=== PATIENT | female | born 1940 | race Caucasian/White ===

== ENCOUNTER → 2016-11-08 | Outpatient (CLI) | payer MEDICARE, OTHER ==
[~2016-11-08] MED LIST: AMIO200T33 PO; AMIO400T3 PO; CALC-6 OR; DIG0125T PO; METO50TA7 PO
[2016-11-08 12:41] LABS: INR 1.2 (0.7-1.3); Prothrombin Time 14.5 sec (9.0-12.0)
== END | disposition home or self-care (01) ==
LOC: LAB 12:22
PROVIDERS: ATTEND Internal Medicine Cardiovascular Disease
DX: R79.1 Abnormal coagulation profile (principal)
CPT/HCPCS: 85610

== ENCOUNTER → 2016-11-16 | Outpatient (CLI) | payer MEDICARE, OTHER ==
[2016-11-16 13:01] LABS: INR 1.2 (0.7-1.3); Prothrombin Time 14.3 sec (9.0-12.0)
== END | disposition home or self-care (01) ==
LOC: LAB 12:48
PROVIDERS: ATTEND Internal Medicine Cardiovascular Disease
DX: R79.1 Abnormal coagulation profile (principal)
CPT/HCPCS: 85610

== ENCOUNTER → 2017-02-11 | Outpatient (CLI) | payer MEDICARE, OTHER | END | disposition home or self-care (01) | LOC: Rad HDHVI 15:44 | PROVIDERS: ATTEND Internal Medicine Cardiovascular Disease | DX: I70.0 Atherosclerosis of aorta (principal); Z95.0 Presence of cardiac pacemaker | CPT/HCPCS: 71020 ==

== ENCOUNTER 2017-02-15 11:54 | Inpatient (IN) | payer MEDICARE, OTHER ==
[~2017-02-15] VITALS: Ht 165.1 cm; Wt 66.6 kg
[2017-02-15] MEDS ORDERED: ALPR (12:51)
[2017-02-15] MEDS ORDERED: GUAI1SOL7 (12:51)
[2017-02-15] MEDS ORDERED: WARF3TAB22 PO (12:51)
[2017-02-15] MEDS ORDERED: MET50T (12:51)
[2017-02-15] MEDS ORDERED: ISOS30TA4 (12:52)
[2017-02-15] MEDS ORDERED: HYDR-4072 (12:52)
[2017-02-15] MEDS ORDERED: AMI200T (12:52)
[2017-02-15] MEDS ORDERED: MAGN400T23 (12:52)
[2017-02-15] MEDS ORDERED: PRAV20TA3 (12:52)
[2017-02-15 12:54] LABS: Basophils # (auto) 0 uL; Eosinophils # (auto) 0 uL; Hematocrit 40.3 % (36.0-46.0); Hemoglobin 13.3 g/dL (12.2-16.2); Lymphocytes # (auto) 0.7 uL; Lymphocytes % (auto) 9.1 % (10.0-50.0); Mean Corpuscular Hemoglobin 28.7 pg (28.0-32.0); Mean Corpuscular Hgb Conc. 32.9 g/dL (32.0-36.0); Mean Corpuscular Volume 87.3 fL (80.0-100.0); Mean Platelet Volume 7.9 fL (7.4-10.4); Monocytes # (auto) 0.3 uL; Monocytes % (auto) 4.5 % (0.0-12.0); Neutrophils # (auto) 6.2 uL; Neutrophils % (auto) 86.4 % (37.0-80.0); Platelet Count (auto) 259 10^3/uL (140-450); Red Cell Distribution Width 16.4 % (11.6-16.0); White Blood Cell 7.2 10^3/uL (4.4-10.8)
[2017-02-15 13:14] LABS: Albumin 3.4 g/dL (3.4-5.0); BUN/Creatinine Ratio 18.5; Calcium 8.7 mg/dL (8.5-10.1); Magnesium 2.4 mg/dL (1.6-2.6); Potassium 4.6 mmol/L (3.5-5.1)
[2017-02-15] MEDS ORDERED: methylPREDNISolone SOD SUCC 125 MG/2 ML VL IV ONE (13:15)
[2017-02-15] MEDS ORDERED: LEVOFLOXACIN 500MG 100 ML IV ONE (13:15)
[2017-02-15] MEDS ORDERED: ALBUTEROL SULF 2.5 MG/0.5ML(0.5%) NEB SOLN NEB ONE (13:15)
[2017-02-15] MEDS ORDERED: IPRATROPIUM BROM 0.5 MG/2.5ML INH SOL NEB ONE (13:15)
[2017-02-15 13:16] LABS: Bilirubin, Total 0.6 mg/dL (0.2-1.0); Total Protein 7.7 g/dL (6.4-8.2)
[2017-02-15 13:31] LABS: Prothrombin Time 44.5 sec (9.37-12.3)
[2017-02-15 13:33] LABS: INR 4.12 (0.9-1.15)
[2017-02-15] MEDS ORDERED: ALBUTEROL SULF 2.5 MG/0.5ML(0.5%) NEB SOLN NEB PRN (15:00)
[2017-02-15] MEDS ORDERED: ACETAMINOPHEN 500 MG TAB PO PRN (15:00)
[2017-02-15] MEDS ORDERED: NITROGLYCERIN 0.4 MG SL TAB SL PRN (15:00)
[2017-02-15] MEDS ORDERED: HYDROcodone-ACET 5/325MG TAB PO PRN (15:00)
[2017-02-15] MEDS ORDERED: LACTULOSE 20Gm/30ML SOLN PO PRN (15:00)
[2017-02-15] MEDS ORDERED: PROCHLORPERAZINE EDISYLATE 5 MG/ML 2ML VIAL IV PRN (15:00)
[2017-02-15] MEDS ORDERED: MORPHINE SULF INJ 2 MG/ML SYRINGE 1ML IV PRN ×2 (15:00)
[2017-02-15] MEDS ORDERED: LORazepam 0.5 MG TAB PO PRN (15:00)
[2017-02-15] MEDS ORDERED: TEMAZEPAM 15 MG CAP PO PRN (15:00)
[2017-02-15] MEDS ORDERED: AMIODARONE HCL 200 MG TAB PO ONE (15:30)
[2017-02-15] MEDS ORDERED: METOPROLOL SUCCINATE XL 50 MG TAB PO ONE (15:30)
[2017-02-15] MEDS ORDERED: PRAVASTATIN SODIUM 20 MG TAB PO ONE (15:30)
[2017-02-15] MEDS ORDERED: ISOSORBIDE MONONITRATE 60 MG TAB PO ONE (15:30)
[2017-02-15] MEDS ORDERED: DIGOXIN 0.125 MG TAB PO ONE (15:30)
[2017-02-15 16:06] LABS: Temperature: 22.4 C (20.0-25.0)
[2017-02-15 16:21] VITALS: BP 116/69
[2017-02-15] MEDS: methylPREDNISolone SOD SUCC 40 MG/ML VL IV SCH (18:16)
[2017-02-15] MEDS: SODIUM CHLORIDE 0.9% 1,000 ML IV SCH (18:17)
[2017-02-15] MEDS: ALBUTEROL SULF 2.5 MG/0.5ML(0.5%) NEB SOLN NEB SCH (18:45)
[2017-02-15] MEDS: IPRATROPIUM BROM 0.5 MG/2.5ML INH SOL NEB SCH (18:45)
[2017-02-15 20:51] LABS: Urine Bilirubin Negative (Negative); Urine Blood Negative /uL (Negative); Urine Color Yellow (Yellow); Urine Glucose Normal (Normal); Urine Ketone Negative (Negative); Urine Nitrite Negative (Negative); Urine RBC 1 /hpf (0 - 4); Urine Squamous Epithelial Cell FEW /hpf (<5); Urine Urobilinogen Normal (Negative); Urine pH 5.5 (5.0-8.0)
[2017-02-15] MEDS: MAGNESIUM OXIDE 400 MG TAB PO SCH (21:26)
[2017-02-15 22:00] VITALS: BP 131/84
[2017-02-16] VITALS (7 sets, daily range): BP systolic 127–154; BP diastolic 71–92
[2017-02-16] MEDS: ALBUTEROL SULF 2.5 MG/0.5ML(0.5%) NEB SOLN NEB SCH ×4 (00:04→19:39)
[2017-02-16] MEDS: IPRATROPIUM BROM 0.5 MG/2.5ML INH SOL NEB SCH ×4 (00:05→19:39)
[2017-02-16] MEDS: methylPREDNISolone SOD SUCC 40 MG/ML VL IV SCH ×5 (00:12→23:51)
[2017-02-16] MEDS: SODIUM CHLORIDE 0.9% 1,000 ML IV SCH ×2 (04:10→17:15)
[2017-02-16 06:09] LABS: Basophils # (auto) 0 uL; Eosinophils # (auto) 0 uL; Hematocrit 36.4 % (36.0-46.0); Lymphocytes # (auto) 0.4 uL; Lymphocytes % (auto) 7.3 % (10.0-50.0); Mean Corpuscular Hemoglobin 28.6 pg (28.0-32.0); Mean Corpuscular Volume 86.8 fL (80.0-100.0); Mean Platelet Volume 7.8 fL (7.4-10.4); Monocytes # (auto) 0.1 uL; Monocytes % (auto) 1.3 % (0.0-12.0); Neutrophils # (auto) 4.8 uL; Neutrophils % (auto) 91.4 % (37.0-80.0); Platelet Count (auto) 217 10^3/uL (140-450); Red Cell Distribution Width 16.5 % (11.6-16.0); White Blood Cell 5.3 10^3/uL (4.4-10.8)
[2017-02-16 06:23] LABS: INR 3.49 (0.9-1.15); Partial Thromboplastin Time 34.8 sec (22.64-33.71); Prothrombin Time 37.7 sec (9.37-12.3)
[2017-02-16 06:56] LABS: BUN/Creatinine Ratio 24.4; Bilirubin, Total 0.7 mg/dL (0.2-1.0); Calcium 8.4 mg/dL (8.5-10.1); Potassium 4.2 mmol/L (3.5-5.1); Total Protein 6.7 g/dL (6.4-8.2)
[2017-02-16] MEDS ORDERED: AMIODARONE HCL 400 MG PO SCH (10:00)
[2017-02-16] MEDS ORDERED: ISOSORBIDE MONONITRATE 60 MG TAB PO SCH (10:00)
[2017-02-16] MEDS ORDERED: DIGOXIN 0.125 MG TAB PO SCH (10:00)
[2017-02-16] MEDS: LEVOFLOXACIN 500MG 100 ML IV SCH (10:02)
[2017-02-16] MEDS: MAGNESIUM OXIDE 400 MG TAB PO SCH ×2 (10:07→21:51)
[2017-02-16] MEDS: PRAVASTATIN SODIUM 20 MG TAB PO SCH (10:07)
[2017-02-16] MEDS: AMIODARONE HCL 200 MG TAB PO SCH (10:09)
[2017-02-16] MEDS: METOPROLOL SUCCINATE XL 50 MG TAB PO SCH (10:11)
[2017-02-17] VITALS (7 sets, daily range): BP systolic 135–156; BP diastolic 78–90
[2017-02-17] MEDS: IPRATROPIUM BROM 0.5 MG/2.5ML INH SOL NEB SCH ×4 (00:37→19:17)
[2017-02-17] MEDS: ALBUTEROL SULF 2.5 MG/0.5ML(0.5%) NEB SOLN NEB SCH ×4 (00:37→19:17)
[2017-02-17] MEDS: methylPREDNISolone SOD SUCC 40 MG/ML VL IV SCH ×3 (06:10→17:43)
[2017-02-17] MEDS: SODIUM CHLORIDE 0.9% 1,000 ML IV SCH (07:16)
[2017-02-17 09:36] LABS: Partial Thromboplastin Time 34.3 sec (22.64-33.71)
[2017-02-17 09:38] LABS: INR 3.81 (0.9-1.15); Prothrombin Time 41.2 sec (9.37-12.3)
[2017-02-17] MEDS: LEVOFLOXACIN 500MG 100 ML IV SCH (10:25)
[2017-02-17] MEDS: MAGNESIUM OXIDE 400 MG TAB PO SCH ×2 (10:26→21:48)
[2017-02-17] MEDS: AMIODARONE HCL 200 MG TAB PO SCH (10:26)
[2017-02-17] MEDS: PRAVASTATIN SODIUM 20 MG TAB PO SCH (10:26)
[2017-02-17] MEDS: METOPROLOL SUCCINATE XL 50 MG TAB PO SCH (10:29)
[2017-02-18] MEDS: methylPREDNISolone SOD SUCC 40 MG/ML VL IV SCH ×4 (00:10→17:43)
[2017-02-18] MEDS: IPRATROPIUM BROM 0.5 MG/2.5ML INH SOL NEB SCH ×4 (01:09→19:06)
[2017-02-18] MEDS: ALBUTEROL SULF 2.5 MG/0.5ML(0.5%) NEB SOLN NEB SCH ×4 (01:09→19:06)
[2017-02-18 05:12] VITALS: BP 155/98
[2017-02-18 06:41] LABS: INR 2.95 (0.9-1.15); Partial Thromboplastin Time 33.4 sec (22.64-33.71); Prothrombin Time 31.9 sec (9.37-12.3)
[2017-02-18 06:59] LABS: Albumin 3.1 g/dL (3.4-5.0); BUN/Creatinine Ratio 27.2; Potassium 3.6 mmol/L (3.5-5.1); Total Protein 6.8 g/dL (6.4-8.2)
[2017-02-18 08:53] VITALS: BP 155/104
[2017-02-18] MEDS: METOPROLOL SUCCINATE XL 50 MG TAB PO SCH (10:20)
[2017-02-18] MEDS: PRAVASTATIN SODIUM 20 MG TAB PO SCH (10:20)
[2017-02-18] MEDS: LEVOFLOXACIN 500MG 100 ML IV SCH (10:21)
[2017-02-18] MEDS: MAGNESIUM OXIDE 400 MG TAB PO SCH ×2 (10:21→22:43)
[2017-02-18] MEDS: AMIODARONE HCL 200 MG TAB PO SCH (10:21)
[2017-02-18] MEDS: SODIUM CHLORIDE 0.9% 1,000 ML IV SCH ×3 (10:22→22:50)
[2017-02-18 14:29] VITALS: BP 155/104
[2017-02-18 16:54] VITALS: BP 139/80
[2017-02-19] MEDS: ALBUTEROL SULF 2.5 MG/0.5ML(0.5%) NEB SOLN NEB SCH ×3 (00:07→12:08)
[2017-02-19] MEDS: IPRATROPIUM BROM 0.5 MG/2.5ML INH SOL NEB SCH ×3 (00:07→12:08)
[2017-02-19] MEDS: methylPREDNISolone SOD SUCC 40 MG/ML VL IV SCH ×3 (00:53→11:40)
[2017-02-19 05:00] VITALS: BP 151/84
[2017-02-19 06:50] LABS: Partial Thromboplastin Time 31.4 sec (22.64-33.71)
[2017-02-19 06:51] LABS: Basophils # (auto) 0 uL; Eosinophils # (auto) 0 uL; Hemoglobin 12.8 g/dL (12.2-16.2); Lymphocytes # (auto) 0.3 uL; Lymphocytes % (auto) 3.4 % (10.0-50.0); Mean Corpuscular Hemoglobin 28.6 pg (28.0-32.0); Mean Corpuscular Hgb Conc. 32.7 g/dL (32.0-36.0); Mean Corpuscular Volume 87.4 fL (80.0-100.0); Mean Platelet Volume 7.8 fL (7.4-10.4); Monocytes # (auto) 0.2 uL; Monocytes % (auto) 2.8 % (0.0-12.0); Neutrophils % (auto) 93.8 % (37.0-80.0); Platelet Count (auto) 271 10^3/uL (140-450); Red Cell Distribution Width 16.4 % (11.6-16.0); White Blood Cell 7.5 10^3/uL (4.4-10.8)
[2017-02-19 07:04] LABS: INR 2.39 (0.9-1.15); Prothrombin Time 25.8 sec (9.37-12.3)
[2017-02-19 09:00] VITALS: BP 144/78
[2017-02-19] MEDS: LEVOFLOXACIN 500MG 100 ML IV SCH (10:21)
[2017-02-19] MEDS: AMIODARONE HCL 200 MG TAB PO SCH (10:22)
[2017-02-19] MEDS: METOPROLOL SUCCINATE XL 50 MG TAB PO SCH (10:22)
[2017-02-19] MEDS: PRAVASTATIN SODIUM 20 MG TAB PO SCH (10:22)
[2017-02-19] MEDS: MAGNESIUM OXIDE 400 MG TAB PO SCH (10:23)
[2017-02-19] MEDS: SODIUM CHLORIDE 0.9% 1,000 ML IV SCH (12:59)
[2017-02-19 13:00] VITALS: BP 110/70
[2017-02-19 15:39] VITALS: BP 110/70
[2017-02-19] MEDS ORDERED: WARFARIN SODIUM 2 MG TAB PO ONE (17:00)
== END 2017-02-19 16:53 | disposition home health service (06) | DRG 871 ==
LOC: ER 12:06 → TELE 12:07 → TELE-WESTW 17:39
PROVIDERS: ADMIT Internal Medicine; ATTEND Internal Medicine Cardiovascular Disease
DX: A41.9 Sepsis, unspecified organism (principal); J18.9 Pneumonia, unspecified organism; J44.1 Chronic obstructive pulmonary disease with (acute) exacerbation; S00.03XA Contusion of scalp, initial encounter; I11.9 Hypertensive heart disease without heart failure; I48.91 Unspecified atrial fibrillation; I67.2 Cerebral atherosclerosis; J34.2 Deviated nasal septum; M48.02 Spinal stenosis, cervical region; W19.XXXA Unspecified fall, initial encounter; Y93.89 Activity, other specified; Y92.89 Other specified places as the place of occurrence of the external cause; Z95.0 Presence of cardiac pacemaker; Z86.73 Personal history of transient ischemic attack (TIA), and cerebral infarction without residual deficits; Z90.49 Acquired absence of other specified parts of digestive tract; Z90.710 Acquired absence of both cervix and uterus; Z88.0 Allergy status to penicillin; Z79.01 Long term (current) use of anticoagulants; Z79.899 Other long term (current) drug therapy
CPT/HCPCS: 36415; 70450; 70486; 71010; 71250; 72125; 80053; 81001; 82550; 82607; 82746; 83735; 84443; 84484; 85025; 85610; 85652; 85730; 86141; 87040; 93005; 93306; 93886; 94640; 96365; 96375; J1956

== ENCOUNTER → 2017-02-25 | Outpatient (CLI) | payer MEDICARE, OTHER ==
[~2017-02-25] MED LIST changes: +ALPR; +GUAI1SOL7; +HYDR-4072; +ISOS30TA4; +MAGN400T23; +MET50T; +PRAV20TA3; +WARF3TAB22 PO
[2017-02-25 16:30] LABS: Basophils # (auto) 0 uL; Eosinophils # (auto) 0.1 uL; Eosinophils % (auto) 1.2 % (0.0-7.0); Hematocrit 43.3 % (36.0-46.0); Lymphocytes # (auto) 0.5 uL; Lymphocytes % (auto) 8.9 % (10.0-50.0); Mean Corpuscular Hemoglobin 28.7 pg (28.0-32.0); Mean Corpuscular Hgb Conc. 32.4 g/dL (32.0-36.0); Mean Corpuscular Volume 88.7 fL (80.0-100.0); Mean Platelet Volume 8.4 fL (7.4-10.4); Monocytes # (auto) 0.6 uL; Monocytes % (auto) 9.5 % (0.0-12.0); Neutrophils # (auto) 4.7 uL; Neutrophils % (auto) 80.4 % (37.0-80.0); Platelet Count (auto) 277 10^3/uL (140-450); Red Cell Distribution Width 17.1 % (11.6-16.0); White Blood Cell 5.9 10^3/uL (4.4-10.8)
[2017-02-25 16:53] LABS: Partial Thromboplastin Time 29.9 sec (22.64-33.71)
[2017-02-25 16:54] LABS: BUN/Creatinine Ratio 22.8; Calcium 8.9 mg/dL (8.5-10.1); Potassium 4.5 mmol/L (3.5-5.1)
[2017-02-25 17:00] LABS: INR 1.73 (0.9-1.15); Prothrombin Time 18.7 sec (9.37-12.3)
== END | disposition home or self-care (01) ==
LOC: LAB 11:39
PROVIDERS: ATTEND Internal Medicine Cardiovascular Disease
DX: I10 Essential (primary) hypertension (principal); D64.9 Anemia, unspecified; R79.1 Abnormal coagulation profile
CPT/HCPCS: 36415; 80048; 85025; 85610; 85730

== ENCOUNTER → 2017-12-17 | Outpatient (CLI) | payer MEDICARE, OTHER ==
[~2017-12-17] MED LIST changes: +GUAI1SOL; -GUAI1SOL7
[2017-12-17 12:17] LABS: Basophils # (auto) 0 uL; Basophils % (auto) 0.5 % (0.0-2.0); Eosinophils # (auto) 0 uL; Eosinophils % (auto) 0.5 % (0.0-7.0); Hematocrit 37.2 % (36.0-46.0); Hemoglobin 12.5 g/dL (12.2-16.2); Lymphocytes % (auto) 14.7 % (10.0-50.0); Mean Corpuscular Hemoglobin 30.6 pg (28.0-32.0); Mean Corpuscular Hgb Conc. 33.5 g/dL (32.0-36.0); Mean Corpuscular Volume 91.6 fL (80.0-100.0); Monocytes # (auto) 0.5 uL; Neutrophils # (auto) 5.2 uL; Neutrophils % (auto) 77.3 % (37.0-80.0); Nucleated Red Blood Cells % 0.3 %; Platelet Count (auto) 201 10^3/uL (140-450); Red Blood Cells 4.07 10^6/uL (4.0-5.20); Red Cell Distribution Width 15.4 % (11.8-14.3); White Blood Cell 6.7 10^3/uL (4.4-10.8)
[2017-12-17 12:23] LABS: Urine Blood 2+ /uL (Negative); Urine Specific Gravity 1.016 (1.001-1.035)
[2017-12-17 14:17] LABS: Albumin 3.8 g/dL (3.4-5.0); BUN/Creatinine Ratio 15.3; Bilirubin, Direct 0.4 mg/dL (0-0.2); Calcium 8.6 mg/dL (8.5-10.1); Potassium 4.2 mmol/L (3.5-5.1); Total Protein 7.4 g/dL (6.4-8.2)
== END | disposition home or self-care (01) ==
LOC: LAB 09:54
PROVIDERS: ATTEND Internal Medicine Cardiovascular Disease
DX: E78.00 Pure hypercholesterolemia, unspecified (principal); D64.9 Anemia, unspecified; I10 Essential (primary) hypertension; E11.9 Type 2 diabetes mellitus without complications; E03.9 Hypothyroidism, unspecified; E55.9 Vitamin D deficiency, unspecified; K74.1 Hepatic sclerosis; N39.0 Urinary tract infection, site not specified
CPT/HCPCS: 36415; 80048; 80061; 80076; 81003; 82306; 83036; 84443; 85025; 87086; 87088; 87186

== ENCOUNTER → 2018-01-01 | Outpatient (CLI) | payer MEDICARE, OTHER | END | disposition home or self-care (01) | LOC: Rad HDHVI 08:57 | PROVIDERS: ATTEND Internal Medicine Cardiovascular Disease | DX: I08.1 Rheumatic disorders of both mitral and tricuspid valves (principal); I48.91 Unspecified atrial fibrillation; Z95.0 Presence of cardiac pacemaker | CPT/HCPCS: 93306 ==

== ENCOUNTER → 2018-02-17 | Outpatient (CLI) | payer MEDICARE, OTHER ==
[~2018-02-17] MED LIST changes: +IOHEXOL 350 MG/ML 100ML IJ ONE; +READI-CAT 2 (BARIUM SULF)(VANILLA SMOOTHIE) 450ML ONE
[2018-02-17 09:40] VITALS: BP 115/65
[2018-02-17 10:25] VITALS: BP 114/53
[2018-02-17 12:12] LABS: Urine Blood Negative /uL (Negative)
[2018-02-17 12:25] LABS: BUN/Creatinine Ratio 27.5; Basophils # (auto) 0 uL; Basophils % (auto) 0.5 % (0.0-2.0); Calcium 9.3 mg/dL (8.5-10.1); Eosinophils # (auto) 0.1 uL; Hematocrit 39.7 % (36.0-46.0); Lymphocytes # (auto) 0.8 uL; Lymphocytes % (auto) 16.9 % (10.0-50.0); Mean Corpuscular Hemoglobin 29.6 pg (28.0-32.0); Mean Corpuscular Hgb Conc. 32.9 g/dL (32.0-36.0); Monocytes # (auto) 0.5 uL; Monocytes % (auto) 9.8 % (0.0-12.0); Neutrophils # (auto) 3.3 uL; Neutrophils % (auto) 70.8 % (37.0-80.0); Nucleated Red Blood Cells % 0.7 %; Platelet Count (auto) 228 10^3/uL (140-450); Potassium 4.3 mmol/L (3.5-5.1); Red Blood Cells 4.41 10^6/uL (4.0-5.20); Red Cell Distribution Width 14.5 % (11.8-14.3); White Blood Cell 4.7 10^3/uL (4.4-10.8)
[2018-02-17 12:34] LABS: INR 1.22 (0.9-1.15); Partial Thromboplastin Time 31.5 sec (22.64-33.71); Prothrombin Time 13.3 sec (9.37-12.3)
== END | disposition home or self-care (01) ==
LOC: Rad HDHVI 09:20
PROVIDERS: ATTEND Internal Medicine Cardiovascular Disease
DX: K57.30 Diverticulosis of large intestine without perforation or abscess without bleeding (principal); K76.89 Other specified diseases of liver; I70.0 Atherosclerosis of aorta; D64.9 Anemia, unspecified; I10 Essential (primary) hypertension; R79.1 Abnormal coagulation profile; N39.0 Urinary tract infection, site not specified; E11.9 Type 2 diabetes mellitus without complications; E78.00 Pure hypercholesterolemia, unspecified; Z95.0 Presence of cardiac pacemaker
CPT/HCPCS: 36415; 74177; 80048; 81003; 82565; 85025; 85610; 85730; 87086; G0463; Q9967

== ENCOUNTER → 2018-03-14 | Outpatient (CLI) | payer MEDICARE, OTHER ==
[~2018-03-14] MED LIST changes: -IOHEXOL 350 MG/ML 100ML IJ ONE; -READI-CAT 2 (BARIUM SULF)(VANILLA SMOOTHIE) 450ML ONE
== END | disposition home or self-care (01) ==
LOC: Rad HDHVI 12:14
PROVIDERS: ATTEND Internal Medicine Cardiovascular Disease
DX: I63.9 Cerebral infarction, unspecified (principal); I67.2 Cerebral atherosclerosis; I10 Essential (primary) hypertension; E11.9 Type 2 diabetes mellitus without complications; E78.00 Pure hypercholesterolemia, unspecified; Z91.81 History of falling; Z95.0 Presence of cardiac pacemaker
CPT/HCPCS: 70450

== ENCOUNTER → 2018-09-24 | Outpatient (CLI) | payer MEDICARE, BC ==
[~2018-09-24] MED LIST changes: -ALPR; +ALPR0.255 PO; -AMIO400T3 PO; -CALC-6 OR; +CARB25TA22 PO; -DIG0125T PO; -GUAI1SOL; -HYDR-4072; +HYDR-4072 PO; -MET50T; +MET50T PO; -METO50TA7 PO; +MULT-195 OR; +WARF4TAB33 PO
== END | disposition home or self-care (01) ==
LOC: Rad HDHVI 15:20
PROVIDERS: ATTEND Internal Medicine Cardiovascular Disease
DX: J98.11 Atelectasis (principal); J90 Pleural effusion, not elsewhere classified; I70.0 Atherosclerosis of aorta
CPT/HCPCS: 71046

== ENCOUNTER → 2018-11-05 | Outpatient (CLI) | payer MEDICARE, BC | END | disposition home or self-care (01) | LOC: Rad HDHVI 12:45 | PROVIDERS: ATTEND Internal Medicine Cardiovascular Disease | DX: I08.1 Rheumatic disorders of both mitral and tricuspid valves (principal); I27.0 Primary pulmonary hypertension; I95.9 Hypotension, unspecified | CPT/HCPCS: 93306 ==

== ENCOUNTER → 2019-02-11 | Outpatient (CLI) | payer MEDICARE, BC ==
[~2019-02-11] MED LIST changes: +IOHEXOL 350 MG/ML 100ML IJ ONE
[2019-02-11 16:11] LABS: Urine Blood Negative /uL (Negative); Urine Specific Gravity 1.013 (1.001-1.035)
[2019-02-11 16:32] LABS: Potassium 4.4 mmol/L (3.5-5.1)
[2019-02-11 16:35] LABS: Basophils # (auto) 0 uL; Basophils % (auto) 0.6 % (0.0-2.0); Eosinophils # (auto) 0.1 uL; Eosinophils % (auto) 1.3 % (0.0-7.0); Hematocrit 41.7 % (36.0-46.0); Hemoglobin 13.7 g/dL (12.2-16.2); Lymphocytes # (auto) 1.2 uL; Lymphocytes % (auto) 25.3 % (10.0-50.0); Mean Corpuscular Hemoglobin 30.5 pg (28.0-32.0); Mean Corpuscular Hgb Conc. 32.8 g/dL (32.0-36.0); Mean Corpuscular Volume 93.1 fL (80.0-100.0); Monocytes # (auto) 0.3 uL; Monocytes % (auto) 7.3 % (0.0-12.0); Neutrophils % (auto) 65.5 % (37.0-80.0); Nucleated Red Blood Cells % 0.1 %; Platelet Count (auto) 184 10^3/uL (140-450); Red Blood Cells 4.48 10^6/uL (4.0-5.20); Red Cell Distribution Width 15.3 % (11.8-14.3); White Blood Cell 4.6 10^3/uL (4.4-10.8)
[2019-02-11 16:38] LABS: Albumin 4.2 g/dL (3.4-5.0); BUN/Creatinine Ratio 15.4; Bilirubin, Direct 0.3 mg/dL (0-0.2); Bilirubin, Total 0.8 mg/dL (0.2-1.0); Calcium 8.9 mg/dL (8.5-10.1); Total Protein 7.3 g/dL (6.4-8.2)
[2019-02-11 19:59] LABS: Free T4 (Free Thyroxine) 1.28 ng/dL (0.89-1.76)
== END | disposition home or self-care (01) ==
LOC: Rad HDHVI 15:04
PROVIDERS: ATTEND Internal Medicine Cardiovascular Disease
DX: N39.0 Urinary tract infection, site not specified (principal); E03.9 Hypothyroidism, unspecified; E55.9 Vitamin D deficiency, unspecified; D51.9 Vitamin B12 deficiency anemia, unspecified; Z79.899 Other long term (current) drug therapy
CPT/HCPCS: 36415; 80048; 80061; 80076; 81003; 82306; 82607; 83036; 84439; 84443; 85025; 87086; Q9967

== ENCOUNTER → 2019-02-13 | Outpatient (CLI) | payer MEDICARE, BC ==
[2019-02-13 09:49] VITALS: BP 116/68
--- NOTE | 2019-02-13 09:49 | NUR ---
IV insertion IV access obtained by Susana CRUZ, via clean sterile technique by inserting 22 gauge catheter at [facility] after 1 attempt(s). IV secured properly. No trauma to site. Patient tolerated procedure well.
--- NOTE | 2019-02-13 10:19 | NUR ---
IV removal IV DC'd with sterile technique, catheter fully intact. Pressure dressing applied to site. Patient tolerated procedure well.
[2019-02-13 10:20] VITALS: BP 128/72
--- NOTE | 2019-02-13 10:20 | NUR ---
[facility] Discharge Instructions See e-MAR for any mediations given with this visit. Patient education given on disease process. Patient verbalized understanding. Previous labs reviewed. Patient discharged in stable condition with after care instructions and follow up appointment. NOTE PATIENT EDUCATED TO DRINK PLENTY OF FLUIDS OVER THE NEXT 24 HRS, PATIENT VERBALIZED UNDERSTANDING.
== END | disposition home or self-care (01) ==
LOC: Rad HDHVI 09:44
PROVIDERS: ATTEND Internal Medicine Cardiovascular Disease
DX: K92.2 Gastrointestinal hemorrhage, unspecified (principal); I70.0 Atherosclerosis of aorta; G31.9 Degenerative disease of nervous system, unspecified; Z90.710 Acquired absence of both cervix and uterus
CPT/HCPCS: 74177; G0463; Q9967

== ENCOUNTER → 2019-04-01 | Outpatient (CLI) | payer MEDICARE, BC ==
[~2019-04-01] MED LIST changes: -IOHEXOL 350 MG/ML 100ML IJ ONE
== END | disposition home or self-care (01) ==
LOC: Rad HDHVI 13:48
PROVIDERS: ATTEND Internal Medicine Cardiovascular Disease
DX: M16.11 Unilateral primary osteoarthritis, right hip (principal); M25.78 Osteophyte, vertebrae
CPT/HCPCS: 73700

== ENCOUNTER → 2020-08-03 | Outpatient (CLI) | payer MEDICARE, BC ==
[2020-08-03 11:46] LABS: Urine Blood Negative /uL (Negative)
[2020-08-03 11:55] LABS: Basophils # (auto) 0 10 ^3/uL (0-0.2); Basophils % (auto) 0.3 % (0.0-2.0); Eosinophils # (auto) 0.1 10 ^3/uL (0-0.8); Eosinophils % (auto) 1.3 % (0.0-7.0); Hematocrit 41.2 % (36.0-46.0); Hemoglobin 13.2 g/dL (12.2-16.2); Lymphocytes # (auto) 1.1 10 ^3/uL (0.4-5.4); Lymphocytes % (auto) 21.8 % (10.0-50.0); Mean Corpuscular Hemoglobin 29.6 pg (28.0-32.0); Mean Corpuscular Volume 92.4 fL (80.0-100.0); Monocytes # (auto) 0.4 10 ^3/uL (0-1.3); Monocytes % (auto) 7.4 % (0.0-12.0); Neutrophils # (auto) 3.5 10 ^3/uL (1.6-8.6); Neutrophils % (auto) 69.2 % (37.0-80.0); Nucleated Red Blood Cells % 0.1 %; Platelet Count (auto) 235 10^3/uL (140-450); Red Blood Cells 4.46 10^6/uL (4.0-5.20); Red Cell Distribution Width 14.6 % (11.8-14.3); White Blood Cell 5.1 10^3/uL (4.4-10.8)
[2020-08-03 12:22] LABS: Albumin 3.6 g/dL (3.4-5.0); Potassium 4.2 mmol/L (3.5-5.1)
[2020-08-03 12:32] LABS: Total Protein 7.4 g/dL (6.4-8.2)
[2020-08-03 13:09] LABS: BUN/Creatinine Ratio 15.5; Bilirubin, Direct 0.2 mg/dL (0-0.2); Bilirubin, Total 0.7 mg/dL (0.2-1.0); Calcium 9.2 mg/dL (8.5-10.1)
== END | disposition home or self-care (01) ==
LOC: LAB 10:24
PROVIDERS: ATTEND Internal Medicine Cardiovascular Disease
DX: E11.9 Type 2 diabetes mellitus without complications (principal); D51.3 Other dietary vitamin B12 deficiency anemia; I10 Essential (primary) hypertension; E55.9 Vitamin D deficiency, unspecified; D64.9 Anemia, unspecified; R00.2 Palpitations; R53.1 Weakness; R30.0 Dysuria
CPT/HCPCS: 36415; 80048; 80061; 80076; 81003; 82306; 83036; 84443; 85025; 87086

== ENCOUNTER → 2020-08-04 | Outpatient (CLI) | payer MEDICARE, BC | END | disposition home or self-care (01) | LOC: Rad HDHVI 15:00 | PROVIDERS: ATTEND Internal Medicine Cardiovascular Disease | DX: I48.91 Unspecified atrial fibrillation (principal); I49.5 Sick sinus syndrome | CPT/HCPCS: 93306 ==

== ENCOUNTER → 2020-08-15 | Outpatient (CLI) | payer MEDICARE, BC ==
[~2020-08-15] VITALS: Ht 165.1 cm; Wt 57.6 kg
[~2020-08-15] MED LIST changes: +ADENOSINE 48 MG in GIVE UN-DILUTED 0 ML IV ONE; +ADENOSINE 90 MG/30 ML INJ IV ONE
== END | disposition home or self-care (01) ==
LOC: Rad HDHVI 08:20
PROVIDERS: ATTEND Internal Medicine Cardiovascular Disease
DX: I48.91 Unspecified atrial fibrillation (principal); E78.00 Pure hypercholesterolemia, unspecified; I10 Essential (primary) hypertension; Z95.0 Presence of cardiac pacemaker
CPT/HCPCS: 78452; 93005; 96374; 96375; A9500; J0153

== ENCOUNTER → 2021-02-15 | Outpatient (CLI) | payer MEDICARE, BC ==
[~2021-02-15] MED LIST changes: -ADENOSINE 48 MG in GIVE UN-DILUTED 0 ML IV ONE; -ADENOSINE 90 MG/30 ML INJ IV ONE; +ISOS1TAB28; -ISOS30TA4
[2021-02-15 11:49] LABS: Basophils # (auto) 0 10 ^3/uL (0-0.2); Basophils % (auto) 0.7 % (0.0-2.0); Eosinophils # (auto) 0.1 10 ^3/uL (0-0.8); Eosinophils % (auto) 2.4 % (0.0-7.0); Hematocrit 36.1 % (36.0-46.0); Hemoglobin 11.9 g/dL (12.2-16.2); Lymphocytes # (auto) 1.2 10 ^3/uL (0.4-5.4); Lymphocytes % (auto) 26.1 % (10.0-50.0); Mean Corpuscular Hemoglobin 30.6 pg (28.0-32.0); Mean Corpuscular Hgb Conc. 32.8 g/dL (32.0-36.0); Mean Corpuscular Volume 93.3 fL (80.0-100.0); Monocytes # (auto) 0.4 10 ^3/uL (0-1.3); Monocytes % (auto) 8.2 % (0.0-12.0); Neutrophils # (auto) 2.8 10 ^3/uL (1.6-8.6); Neutrophils % (auto) 62.6 % (37.0-80.0); Nucleated Red Blood Cells % 0.1 %; Platelet Count (auto) 184 10^3/uL (140-450); Red Blood Cells 3.87 10^6/uL (4.0-5.20); Red Cell Distribution Width 16.1 % (11.8-14.3); White Blood Cell 4.5 10^3/uL (4.4-10.8)
[2021-02-15 12:01] LABS: Albumin 3.4 g/dL (3.4-5.0); Calcium 8.9 mg/dL (8.5-10.1)
[2021-02-15 12:12] LABS: BUN/Creatinine Ratio 20.5; Bilirubin, Total 1.1 mg/dL (0.2-1.0); Total Protein 6.6 g/dL (6.4-8.2)
[2021-02-15 12:14] LABS: Free T4 (Free Thyroxine) 1.33 ng/dL (0.89-1.76)
[2021-02-15 15:41] LABS: Urine Blood Negative /uL (Negative); Urine Specific Gravity 1.023 (1.001-1.035)
== END | disposition home or self-care (01) ==
LOC: LAB 08:22
PROVIDERS: ATTEND Internal Medicine Cardiovascular Disease
DX: D51.3 Other dietary vitamin B12 deficiency anemia (principal); I10 Essential (primary) hypertension; E11.9 Type 2 diabetes mellitus without complications; E55.9 Vitamin D deficiency, unspecified; D64.9 Anemia, unspecified; R00.2 Palpitations; R53.1 Weakness; R30.0 Dysuria
CPT/HCPCS: 36415; 80053; 80061; 81003; 82306; 82607; 83036; 84439; 84443; 85025; 87086

== ENCOUNTER → 2021-07-24 | Outpatient (CLI) | payer MEDICARE, BC ==
[~2021-07-24] VITALS: Ht 165.1 cm; Wt 54.4 kg
[~2021-07-24] MED LIST changes: +ADENOSINE 46 MG in GIVE UN-DILUTED 0 ML IV ONE; +ADENOSINE 90 MG/30 ML INJ IV ONE; -CARB25TA22 PO; +CARB25TA79 PO
== END | disposition home or self-care (01) ==
LOC: Rad HDHVI 08:24
PROVIDERS: ATTEND Internal Medicine Cardiovascular Disease
DX: I48.11 Longstanding persistent atrial fibrillation (principal); I10 Essential (primary) hypertension; R00.2 Palpitations; E78.5 Hyperlipidemia, unspecified; J44.9 Chronic obstructive pulmonary disease, unspecified; I49.5 Sick sinus syndrome; I25.2 Old myocardial infarction; Z95.0 Presence of cardiac pacemaker
CPT/HCPCS: 78452; 93005; 96374; 96375; A9500; J0153

== ENCOUNTER → 2021-08-08 | Outpatient (CLI) | payer MEDICARE, BC ==
[~2021-08-08] MED LIST changes: -ADENOSINE 46 MG in GIVE UN-DILUTED 0 ML IV ONE; -ADENOSINE 90 MG/30 ML INJ IV ONE
== END | disposition home or self-care (01) ==
LOC: Rad HDHVI 07:58
PROVIDERS: ATTEND Internal Medicine Cardiovascular Disease
DX: I10 Essential (primary) hypertension (principal); R06.02 Shortness of breath
CPT/HCPCS: 93306

== ENCOUNTER → 2021-08-16 | Outpatient (CLI) | payer MEDICARE, BC | END | disposition home or self-care (01) | LOC: Rad HDHVI 08:00 | PROVIDERS: ATTEND Internal Medicine Cardiovascular Disease | DX: I65.21 Occlusion and stenosis of right carotid artery (principal); I10 Essential (primary) hypertension; E78.5 Hyperlipidemia, unspecified | CPT/HCPCS: 93880 ==

== ENCOUNTER → 2022-02-19 | Outpatient (CLI) | payer MEDICARE, BC ==
[2022-02-19 15:25] LABS: Urine Blood Negative /uL (Negative); Urine Specific Gravity 1.013 (1.001-1.035)
[2022-02-19 15:28] LABS: Basophils # (auto) 0 10 ^3/uL (0-0.2); Basophils % (auto) 0.5 % (0.0-2.0); Eosinophils # (auto) 0.1 10 ^3/uL (0-0.8); Eosinophils % (auto) 1.9 % (0.0-7.0); Hematocrit 37.2 % (36.0-46.0); Hemoglobin 12.6 g/dL (12.2-16.2); Lymphocytes % (auto) 24.6 % (10.0-50.0); Mean Corpuscular Hemoglobin 31.1 pg (28.0-32.0); Mean Corpuscular Hgb Conc. 33.7 g/dL (32.0-36.0); Mean Corpuscular Volume 92.1 fL (80.0-100.0); Monocytes # (auto) 0.3 10 ^3/uL (0-1.3); Monocytes % (auto) 6.7 % (0.0-12.0); Neutrophils # (auto) 2.8 10 ^3/uL (1.6-8.6); Neutrophils % (auto) 66.3 % (37.0-80.0); Nucleated Red Blood Cells % 0.1 %; Red Blood Cells 4.04 10^6/uL (4.0-5.20); Red Cell Distribution Width 15.8 % (11.8-14.3); White Blood Cell 4.3 10^3/uL (4.4-10.8)
[2022-02-19 15:30] LABS: Albumin 3.6 g/dL (3.4-5.0); Calcium 9.3 mg/dL (8.5-10.1); Potassium 4.2 mmol/L (3.5-5.1)
[2022-02-19 15:35] LABS: BUN/Creatinine Ratio 22.2; Bilirubin, Total 0.8 mg/dL (0.2-1.0); Total Protein 7.4 g/dL (6.4-8.2)
[2022-02-19 15:40] LABS: Free T4 (Free Thyroxine) 2.12 ng/dL (0.89-1.76)
== END | disposition home or self-care (01) ==
LOC: LAB 12:34
PROVIDERS: ATTEND Internal Medicine Cardiovascular Disease
DX: E11.9 Type 2 diabetes mellitus without complications (principal); D51.3 Other dietary vitamin B12 deficiency anemia; D64.9 Anemia, unspecified; E55.9 Vitamin D deficiency, unspecified; I10 Essential (primary) hypertension; R00.2 Palpitations; R53.1 Weakness; R30.0 Dysuria
CPT/HCPCS: 36415; 80053; 80061; 81003; 82607; 83036; 84439; 84443; 85025; 87086

== ENCOUNTER → 2022-02-28 | Outpatient (CLI) | payer MEDICARE, BC | END | disposition home or self-care (01) | LOC: Rad HDHVI 09:03 | PROVIDERS: ATTEND Internal Medicine Cardiovascular Disease | DX: I08.8 Other rheumatic multiple valve diseases (principal); J90 Pleural effusion, not elsewhere classified; R00.2 Palpitations; E78.5 Hyperlipidemia, unspecified | CPT/HCPCS: 93306 ==

== ENCOUNTER → 2022-07-17 | Outpatient (CLI) | payer MEDICARE, BC ==
[2022-07-17 12:50] VITALS: BP 113/68
== END | disposition home or self-care (01) ==
LOC: Rad HDHVI 12:49
PROVIDERS: ATTEND Internal Medicine Cardiovascular Disease
DX: I08.8 Other rheumatic multiple valve diseases (principal); R00.2 Palpitations; S81.851A Open bite, right lower leg, initial encounter; X58.XXXA Exposure to other specified factors, initial encounter; Y93.89 Activity, other specified; Y92.89 Other specified places as the place of occurrence of the external cause; Y99.8 Other external cause status
CPT/HCPCS: 93306; G0463

== ENCOUNTER → 2022-12-04 | Outpatient (CLI) | payer MEDICARE, BC | END | disposition home or self-care (01) | LOC: Rad HDHVI 10:01 | PROVIDERS: ATTEND Internal Medicine Cardiovascular Disease | DX: I08.3 Combined rheumatic disorders of mitral, aortic and tricuspid valves (principal); I27.21 Secondary pulmonary arterial hypertension; I11.9 Hypertensive heart disease without heart failure | CPT/HCPCS: 93306 ==

== ENCOUNTER → 2023-02-13 | Outpatient (CLI) | payer MEDICARE, BC | END | disposition home or self-care (01) | LOC: Rad HDHVI 11:31 | PROVIDERS: ATTEND Internal Medicine Cardiovascular Disease | DX: J98.11 Atelectasis (principal); J90 Pleural effusion, not elsewhere classified; R06.02 Shortness of breath; R07.89 Other chest pain; Z95.0 Presence of cardiac pacemaker | CPT/HCPCS: 71046 ==

== ENCOUNTER → 2023-02-28 | Outpatient (CLI) | payer MEDICARE, BC ==
[~2023-02-28] VITALS: Ht 165.1 cm; Wt 53.1 kg
== END | disposition home or self-care (01) ==
LOC: Rad HDHVI 09:19
PROVIDERS: ATTEND Internal Medicine Cardiovascular Disease
DX: I34.0 Nonrheumatic mitral (valve) insufficiency (principal); I07.1 Rheumatic tricuspid insufficiency; I48.19 Other persistent atrial fibrillation; R42 Dizziness and giddiness; I25.2 Old myocardial infarction; I10 Essential (primary) hypertension; Z95.0 Presence of cardiac pacemaker
CPT/HCPCS: 78472; 96374; A9505; 96375

== ENCOUNTER → 2023-06-17 | Outpatient (CLI) | payer MEDICARE, BC ==
[~2023-06-17] MED LIST changes: +WARF-111 PO; +WARF-112 PO; -WARF3TAB22 PO; -WARF4TAB33 PO
== END | disposition home or self-care (01) ==
LOC: Rad HDHVI 09:34
PROVIDERS: ATTEND Internal Medicine Cardiovascular Disease
DX: I08.8 Other rheumatic multiple valve diseases (principal); I10 Essential (primary) hypertension; R00.2 Palpitations
CPT/HCPCS: 93306

== ENCOUNTER → 2023-12-02 | Outpatient (CLI) | payer MEDICARE, BC | END | disposition home or self-care (01) | LOC: Rad HDHVI 10:43 | PROVIDERS: ATTEND Internal Medicine Cardiovascular Disease | DX: I08.8 Other rheumatic multiple valve diseases (principal); I27.21 Secondary pulmonary arterial hypertension; I31.39 Other pericardial effusion (noninflammatory); I10 Essential (primary) hypertension; R06.02 Shortness of breath | CPT/HCPCS: 93306 ==

== ENCOUNTER → 2024-07-06 | Outpatient (CLI) | payer MEDICARE, BC | END | disposition home or self-care (01) | LOC: Rad HDHVI 11:28 | PROVIDERS: ATTEND Internal Medicine Cardiovascular Disease | DX: S32.512A Fracture of superior rim of left pubis, initial encounter for closed fracture (principal); S32.591A Other specified fracture of right pubis, initial encounter for closed fracture; K57.30 Diverticulosis of large intestine without perforation or abscess without bleeding; Z98.890 Other specified postprocedural states; X58.XXXA Exposure to other specified factors, initial encounter; Y93.89 Activity, other specified; Y92.89 Other specified places as the place of occurrence of the external cause; Y99.8 Other external cause status | CPT/HCPCS: 72192 ==

== ENCOUNTER → 2024-11-04 | Outpatient (CLI) | payer MEDICARE, BC ==
[2024-11-04 11:00] VITALS: BP 117/70; PULSE 79; RESP 18; O2SAT 98
[2024-11-04 11:27] VITALS: BP 98/54; PULSE 79; RESP 18; O2SAT 98
--- NOTE | 2024-11-04 11:29 | DVH ---
EXAM: CT CERVICAL WITHOUT CONTRAST INDICATION: NECK PAIN EXAM DATE: 11/04/2024 10:51 AM COMPARISON: CT R HIP WITH OUT CONTRAST on DOS: 04/01/19 TECHNIQUE: Multiple axial CT images of the cervical spine were obtained using bone algorithm. Sagitta l and coronal reformatting was done. Bone and soft tissue windows were reviewed. Radiation Dose Information: CT Dose: CTDI volume is 8.94 mGy. Dose-length product is 181.07 mGy*cm FINDINGS: The cervical alignment is intact. The curvature is maintained. No acute cervical spine fracture is id entified. The vertebral body heights are intact. No suspicious osseous lesions are identified. There are degenerative changes at C1-C2. There is intervertebral disc space narrowing at C3-C4, C4-C 5, C5-C6 and C6-C7. There is calcification of the posterior longitudinal ligament at C3-C4. There is mild canal stenosis at C3-C4. The spinal canal is otherwise patent. There is mild right foraminal st enosis at C4-C5 and mild left neural foraminal stenosis at C5-C6. There is no prevertebral soft tissue swelling. Emphysema in the lung apices. IMPRESSION: 1. No evidence of acute cervical spine fracture or traumatic malalignment. 2. Degenerative changes. This includes mild canal stenosis at C3-C4. There is mild right foraminal s tenosis at C4-C5 and mild left neural foraminal stenosis at C5-C6. 3. Emphysema in the lung apices. All CT scans at this medical facility are performed using dose modulation techniques as appropriate t o a performed exam including the following: Automated exposure control was utilized; adjustment of th e MA and/or KV according to patient size; and use of iterative reconstruction technique.
== END | disposition home or self-care (01) ==
LOC: Rad HDHVI 10:40
PROVIDERS: ATTEND Internal Medicine Cardiovascular Disease
DX: S51.812A Laceration without foreign body of left forearm, initial encounter (principal); M47.812 Spondylosis without myelopathy or radiculopathy, cervical region; M48.02 Spinal stenosis, cervical region; J43.9 Emphysema, unspecified; M54.2 Cervicalgia; X58.XXXA Exposure to other specified factors, initial encounter; Y93.89 Activity, other specified; Y92.89 Other specified places as the place of occurrence of the external cause; Y99.8 Other external cause status
CPT/HCPCS: 72125; G0463

== ENCOUNTER 2025-01-13 16:26 | Inpatient (IN) | payer OTHER, BC ==
[~2025-01-13] VITALS: Ht 165.1 cm; Wt 49.2 kg
[2025-01-13] MEDS: FUROSEMIDE 20 MG/2 ML VIAL IV ONE (16:45)
--- NOTE | 2025-01-13 16:51 | ED.PDOC ---
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 EMS informs that they were called out by the home care administrator due from having SOB x4 days. EMS note that the pt's PCP, informed the caregiver to give the pt Lasix yesterday due from the SOB. Pt was given a Breathing Trx en rout to the ED of 5mg of albuterol. PMHx of CVA, HTN, CHF, HTN, Hypothyroidism, UT and GERD. SHx of Pacemaker, Tonsillectomy, Hysterectomy and Appendectomy. Denies chills, fever, N/V/D, SOB, CP or no other associated symptoms, modifiers, recent injuries or sick contacts at this time. Chief Complaint: Shortness of Breath Time Seen by MD: 16:30 Primary Care Provider: JUN Reviewed Notes: Nurses Notes, Quality Assurance Monitor Notes, Medications, Allergies Allergies: Coded Allergies: Penicillins (Verified Allergy, Unknown, 02/08/16) Home Meds Active Scripts Amiodarone Hcl (Amiodarone Hcl) 200 Mg Tab, 200 MG PO DAILY for 30 Days Prov:NEREYDA BERNARD MD 02/09/16 Reported Medications Multiple Vitamins W/ Minerals (PRESERVISION AREDS) Areds Tab, 1 OR, TAB 09/15/18 Carbidopa-Levodopa (Carbidopa/Levodopa Odt 25-100 mg) 1 Tab Tab, 1 TAB PO HS, TAB 09/15/18 Warfarin Sodium (Warfarin Sodium) 4 Mg Tab, 4 MG PO EOD for 30 Days, MG 09/15/18 Pravastatin Sodium (PRAVACHOL TABLET) 20 Mg Tb, 80 MG DAILY, #90 02/15/17 Hydrocodone-Acetaminophen (Hydrocodone/Acetaminophen 10-325 mg) 1 Tab Tab, 0.5 TAB PO Q8HR, #90 02/15/17 Magnesium Oxide (Mag-Oxide) 400 Mg Tab, BID, #180 02/15/17 Isosorbide Mononitrate (Isosorbide Mononitrate Er) 30 Mg Tab, DAILY, #90 02/15/17 Warfarin Sodium (Warfarin Sodium) 3 Mg Tab, 3 MG PO EOD, #90 02/15/17 Metoprolol Tartrate (LOPRESSOR TABLET) 50 Mg Tb, 50 MG PO DAILY, #90 02/15/17 Alprazolam (Alprazolam) 0.25 Mg Tab, 0.25 MG PO QHSP, #90 02/15/17 Information Source: Patient, Emergency Med Personnel Mode of Arrival: EMS Severity: Moderate Timing: Days Duration: Since onset, Days Prehospital treatment: None Past Medical History PAST MEDICAL HISTORY: AFIB, CHF, CVA, GERD, HTN, UT, Thyroid (Hypo) Surgical History: Appendectomy, Hysterectomy, Pacemaker, Tonsillectomy 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 Pertinent PULLMAN CAR REPAIRER History Family History Family History: Reviewed,noncontributory to illness, Unknown Social History Smoker: Non-Smoker Alcohol: Denies ETOH Use Drugs: Denies Drug Use Lives In: Home Constitutional: denies: chills, diaphoresis, fatigue, fever, malaise, sweats, weakness, others EENTM: denies: blurred vision, double vision, ear bleeding, ear discharge, ear drainage, ear pain, ear ringing, eye pain, eye redness, hearing loss, mouth pain, mouth swelling, nasal discharge, nose bleeding, nose congestion, nose pain, photophobia, tearing, throat pain, throat swelling, voice changes, others Respiratory: reports: shortness of breath; denies: cough, hemoptysis, orthopnea, SOB at rest, SOB with excertion, stridor, wheezing, others Cardiovascular: denies: chest pain, dizzy spells, diaphoresis, Dyspnea on exertion, edema, irregular heart beat, left arm pain, lightheadedness, palpitations, PND, syncope, others Gastrointestinal: denies: abdomen distended, abdominal pain, blood streaked bowels, constipated, diarrhea, dysphagia, difficulty swallowing, hematemesis, melena, nausea, poor appetite, poor fluid intake, rectal bleeding, rectal pain, vomiting, others Genitourinary: denies: abnormal vagina bleeding, burning, dyspareunia, dysuria, flank pain, frequency, hematuria, incontinence, pain, , vagina discharge, urgency, others Neurological: denies: dizziness, fainting, headache, left sided numbness, left sided weakness, numbness, paresthesia, pre-existing deficit, right sided numbness, right sided weakness, seizure, speech problems, tingling, tremors, weakness, others Musculoskeletal: denies: back pain, gout, joint pain, joint swelling, muscle pain, muscle stiffness, neck pain, others Integumetry: denies: bruises, change in color, change in hair/nails, dryness, laceration, lesions, lumps, rash, wounds, others Allergic/Immunocompromised: denies: Difficulty Healing, Frequent Infections, Hives, Itching, others Hematologic/Lymphatic: denies: anemia, blood clots, easy bleeding, easy bruising, swollen glands, others Endocrine: denies: excessive hunger, excessive sweating, excessive thirst, excessive urination, flushing, intolerance to cold, intolerance to heat, unexplained weight gain, unexplained weight loss, others Psychiatric: denies: anxiety, bipolar disorder, depression, hopeless, panic disorder, schizophrenia, sleepless, suicidal, others All Other Systems: Reviewed and Negative Physical Exam General Appearance: Moderate Distress, Normal HEENT: Normal ENT Inspection, Pharynx Normal, TMs Normal Neck: Full Range of Motion, Non-Tender, Normal, Normal Inspection Respiratory: Accessory Muscle Use, Chest Non-Tender, Respiratory Distress, Other (Coarse breath sounds) Cardiovascular: No Edema, No JVD, No Murmur, No Gallop, Normal Peripheral Pulses, Regular Rate/Rhythm Breast Exam: Deferred Gastrointestinal: No Organomegaly, Non Tender, No Pulsatile Mass, Normal Bowel Sounds, Soft Genitalia: Deferred Pelvic: Deferred Rectal: Deferred Extremities: No calf tenderness, Normal capillary refill, No pedal edema Musculoskeletal : Apperance: Normal Neurologic: Alert, 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 Was a procedure done?: No Differential Dx Considerations may include: CHF Electrolyte imbalance X-Ray, Labs, Meds, VS Vital Signs Date Time Temp Pulse Resp B/P (MAP) Pulse Ox O2 Delivery O2 Flow Rate FiO2 01/13/25 16:33 97.9 89 24 117/54 (75) 97 97.9 Patient alert. Complaining of shortness a breath. Has been having these symptoms for few days. Placed on oxygen. She does have a history of CHF. She takes Lasix. EKG reviewed does not show any acute changes. Paced rhythm. Reviewed her history. Explained to the patient. Continue cardiac monitoring. Time of 1ST Reevaluation: 16:30 Reevaluation 1ST: Unchanged Patient Education/Counseling: Diagnosis, Treatment, Prognosis Family Education/Counseling: No Family Present Departure 1 Departure Time of Disposition: 16:56 Impression: Primary Impression: Acute respiratory distress Additional Impressions: Paced cardiac rhythm CHF (congestive heart failure) Qualified Codes: I50.43 - Acute on chronic combined systolic (congestive) and diastolic (congestive) heart failure Disposition: ADMITTED INPATIENT Admit to: Med Surg Condition: Guarded Critical Care Note Critical Care Time?: Yes (90 min-critical care time only) Critical care comment: Placed on oxygen Stability Stability form required: No Heart Score Heart Score: Heart Score Response (Comments) Value History Slightly Suspicious 0 EKG Normal 0 Age >65 2 Risk Factors >3 or Hx ASHD 2 Troponin Normal limit 0 Total 4 I personally scribed for MICHELLE VACA MD ([email or web address]) on 01/13/25 at 16:51. Electronically submitted by Romel Arevalo ([email or web address]). MICHELLE VACA MD Jan 13, 2025 16:51
[2025-01-13 17:00] VITALS: PULSE 79; RESP 16; O2SAT 95
--- NOTE | 2025-01-13 17:04 | DVH ---
EXAM: XY CHEST PORTABLE HISTORY: sob COMPARISON: Chest x-ray dated 02/13/2023. TECHNIQUE: Portable upright AP view of the chest was performed. FINDINGS: Left chest pacemaker is re-identified. There are bilateral lung base infiltrates and/or ef fusions, similar to that seen on the previous chest x-ray. There is interstitial prominence centrally and in the lung bases. No pneumothorax. The heart is enlarged., although the cardiac margins are par tially obscured. There is thoracic levoscoliosis. IMPRESSION: 1. Cardiomegaly and interstitial prominence suggestive of CHF. 2. Bilateral lung base infiltrates and/or effusions, similar to that seen on previous chest x-ray fro January 2023, which may indicate recurrent infiltrates or chronic bibasilar scarring.
[2025-01-13] MEDS: levoFLOXacin 500MG 100 ML IV ONE (17:36)
[2025-01-13 17:41] LABS: Basophils # (auto) 0 10 ^3/uL (0-0.2); Basophils % (auto) 0.5 % (0.0-2.0); Eosinophils # (auto) 0 10 ^3/uL (0-0.8); Eosinophils % (auto) 0.8 % (0.0-7.0); Hematocrit 32.1 % (36.0-46.0); Hemoglobin 10.2 g/dL (12.2-16.2); Lymphocytes # (auto) 0.7 10 ^3/uL (0.4-5.4); Lymphocytes % (auto) 16.5 % (10.0-50.0); Mean Corpuscular Hemoglobin 30.3 pg (28.0-32.0); Mean Corpuscular Hgb Conc. 31.7 g/dL (32.0-36.0); Mean Corpuscular Volume 95.8 fL (80.0-100.0); Monocytes # (auto) 0.2 10 ^3/uL (0-1.3); Monocytes % (auto) 4.8 % (0.0-12.0); Neutrophils # (auto) 3.4 10 ^3/uL (1.6-8.6); Neutrophils % (auto) 77.4 % (37.0-80.0); Nucleated Red Blood Cells % 0.1 %; Platelet Count (auto) 200 10^3/uL (140-450); Red Blood Cells 3.35 10^6/uL (4.0-5.20); Red Cell Distribution Width 16.2 % (11.8-14.3); White Blood Cell 4.4 10^3/uL (4.4-10.8)
[2025-01-13 17:52] LABS: Chloride 106 mmol/L (98-107); Potassium 4.7 mmol/L (3.5-5.1); Sodium 140 mmol/L (136-145)
[2025-01-13 17:53] LABS: Anion Gap 5 (5-15); Carbon Dioxide 29 mmol/L (20-31)
[2025-01-13 17:54] LABS: Calcium 9.4 mg/dL (8.7-10.4)
[2025-01-13 17:59] LABS: BUN/Creatinine Ratio 30.6 (10.0-20.0); Glucose 93 mg/dL (74-106)
[2025-01-13 18:00] LABS: Blood Urea Nitrogen 33 mg/dL (9-23)
[2025-01-13 19:49] VITALS: PULSE 78; RESP 18; O2SAT 96
[2025-01-13] MEDS ORDERED: ONDANSETRON HCL 4 MG/2 ML VIAL IV PRN (22:45)
[2025-01-13] MEDS ORDERED: ALBUTEROL SULF 2.5 MG/0.5ML(0.5%) NEB SOLN NEB PRN (22:45)
[2025-01-13] MEDS ORDERED: ACETAMINOPHEN 325 MG TAB PO PRN (22:45)
[2025-01-13 23:38] LABS: INR 1.13 (0.9-1.15); Prothrombin Time 11.8 sec (9.3-11.8)
[2025-01-13 23:44] VITALS: BP 105/51; PULSE 78; RESP 18; TEMP 98; O2SAT 98
[2025-01-14] VITALS (17 sets, daily range): BP systolic 97–112; BP diastolic 45–57; PULSE 60–83; RESP 14–18; TEMP 97.5–98.1; O2SAT 92–100
[2025-01-14 00:26] LABS: Urine Bacteria None Seen /hpf (None Seen)
[2025-01-14 00:56] LABS: Urine Blood Negative /uL (Negative); Urine Clarity Clear (Clear); Urine Color Yellow (Yellow); Urine Protein, UAD TRACE (Negative); Urine Specific Gravity 1.022 (1.001-1.035); Urine Squamous Epithelial Cell FEW /hpf (<5); Urine Urobilinogen Normal (Negative); Urine WBC 43 /HPF (0-5); Urine pH 7.5 (5.0-9.0)
--- NOTE | 2025-01-14 03:53 | DVHHP2 ---
History of Present Illness Reason for Visit: Shortness for breath History of Present Illness 84-year-old female presents for evaluation of shortness for breath. Patient presents with a three day history of worsening shortness for breath with associated chest tightness and a nonproductive cough. No fever reported. No active chest pain. Past Medical History GERD, hypertension, mi, thyroid, CVA, CHF, AFib Past Surgical History Pacemaker, tonsillectomy, hysterectomy, appendectomy Family History Noncontributory Smoke: No ALCOHOL: none Drugs: None Lives: with Family Review of Systems Review of Systems Review of systems are currently negative otherwise addressed HPI. Allergies: Coded Allergies: Penicillins (Verified Allergy, Unknown, 02/08/16) Medications Current Medications Medications Dose Ordered Sig/Love Route Start Time Stop Time Status Last Admin Dose Admin Albuterol 2.5 mg Q6HPRN PRN NEB 01/13/25 22:45 Warfarin Sodium RX PROTOCOL PER PHARMACY PO 01/13/25 22:45 UNV Furosemide 20 mg BIDD IV 01/14/25 06:00 Memantine 10 mg DAILY PO 01/14/25 10:00 Levothyroxine Sodium 100 mcg QAM@0600 PO 01/14/25 06:00 Clopidogrel Bisulfate 75 mg DAILY PO 01/14/25 10:00 Carbidopa/Levodopa 1 tab BID PO 01/14/25 10:00 Ondansetron HCl 4 mg Q4HP PRN IV 01/13/25 22:45 Acetaminophen 650 mg Q6HP PRN PO 01/13/25 22:45 Levofloxacin 50 ml @ 50 mls/hr DAILY IV 01/14/25 10:00 Exam Vital Signs Vital Signs Date Time Temp Pulse Resp B/P (MAP) Pulse Ox O2 Delivery O2 Flow Rate FiO2 01/14/25 00:48 97.5 79 16 99/54 (69) 92 97.5 01/13/25 19:49 Nasal Cannula* 2 28 Exam Gen: 84-year-old female in mild distress Skin: Warm, dry, normal color and texture, no rash. HEENT: Normocephalic atraumatic, mucous membranes moist and pink. Neck: Cervical and supraclavicular nodes normal without enlargement, trachea is midline, thyroid gland is normal without masses. Pulmonary: Clear to auscultation and percussion bilaterally. Cardiac: Regular rate and rhythm. No murmur Abdomen: Soft, nontender, nondistended, bowel sounds present all 4 quadrants, no guarding, no rigidity, no organomegaly. Extremities: No cyanosis, clubbing, no edema Neuro: Cranial nerves II through XII grossly intact, normal affect and speech, no focal motor deficits. Labs/Xrays ORDERING PHYSICIAN: MICHELLE VACA MD PROCEDURE(s): CXRP - CHEST PORTABLE REASON: sob ORDER NUMBER(s): [id number], ACCESSION NUMBER(s): [id number] EXAM: XY CHEST PORTABLE HISTORY: sob COMPARISON: Chest x-ray dated 02/13/2023. TECHNIQUE: Portable upright AP view of the chest was performed. FINDINGS: Left chest pacemaker is re-identified. There are bilateral lung base infiltrates and/or effusions, similar to that seen on the previous chest x-ray. There is interstitial prominence centrally and in the lung bases. No pneumothorax. The heart is enlarged., although the cardiac margins are partially obscured. There is thoracic levoscoliosis. IMPRESSION: 1. Cardiomegaly and interstitial prominence suggestive of CHF. 2. Bilateral lung base infiltrates and/or effusions, similar to that seen on previous chest x-ray from January 2023, which may indicate recurrent infiltrates or chronic bibasilar scarring. Labs Test 01/14/25 00:20 01/13/25 23:00 01/13/25 18:14 01/13/25 17:18 Range/Units Urine Color Yellow Yellow Urine Clarity Clear Clear Urine pH 7.5 5.0-9.0 Urine Specific Dalton 1.022 1.001-1.035 Urine Protein Trace H Negative Urine Ketones Negative Negative Urine Blood Negative Negative /uL Urine Nitrite Negative Negative Urine Bilirubin Negative Negative Urine Urobilinogen Normal Negative mg/dL Urine Leukocyte Esterase 3+ Negative /uL Urine RBC 3 0 - 4 /hpf Urine Microscopic WBC 43 H 0-5 /HPF Urine Squamous Epithelial Cells Few <5 /hpf Urine Bacteria None seen None Seen /hpf Urine Glucose Normal Normal mg/dL Prothrombin Time 11.8 9.3-11.8 sec Prothrombin Time INR 1.13 0.9-1.15 Activated Partial Thromboplast Time 27.0 24.5-34.5 SEC D-Dimer, Quantitative 0.62 H 0.0-0.49 mg/L FEU Lactic Acid Level 1.3 0.4-2.0 mmol/L Troponin I High Sensitivity 9 </=34 ng/L White Blood Count 4.4 4.4-10.8 10^3/uL Red Blood Count 3.35 L 4.0-5.20 10^6/uL Hemoglobin 10.2 L 12.2-16.2 g/dL Hematocrit 32.1 L 36.0-46.0 % Mean Corpuscular Volume 95.8 80.0-100.0 fL Mean Corpuscular Hemoglobin 30.3 28.0-32.0 pg Mean Corpuscular Hemoglobin Concent 31.7 L 32.0-36.0 g/dL Red Cell Distribution Width 16.2 H 11.8-14.3 % Platelet Count 200 140-450 10^3/uL Mean Platelet Volume 7.9 6.9-10.8 fL Neutrophils (%) (Auto) 77.4 37.0-80.0 % Lymphocytes (%) (Auto) 16.5 10.0-50.0 % Monocytes (%) (Auto) 4.8 0.0-12.0 % Eosinophils (%) (Auto) 0.8 0.0-7.0 % Basophils (%) (Auto) 0.5 0.0-2.0 % Neutrophils # (Auto) 3.4 1.6-8.6 10 ^3/uL Lymphocytes # (Auto) 0.7 0.4-5.4 10 ^3/uL Monocytes # (Auto) 0.2 0-1.3 10 ^3/uL Eosinophils # (Auto) 0 0-0.8 10 ^3/uL Basophils # (Auto) 0 0-0.2 10 ^3/uL Nucleated Red Blood Cells 0.1 % Sodium Level 140 136-145 mmol/L Potassium Level 4.7 3.5-5.1 mmol/L Chloride Level 106 98-107 mmol/L Carbon Dioxide Level 29 20-31 mmol/L Anion Gap 5 5-15 Blood Urea Nitrogen 33 H 9-23 mg/dL Creatinine 1.08 H 0.550-1.02 mg/dL Glomerular Filtration Rate Calc 50 >90 mL/min BUN/Creatinine Ratio 30.6 H 10.0-20.0 Serum Glucose 93 74-106 mg/dL Calcium Level 9.4 8.7-10.4 mg/dL B-Type Natriuretic Peptide 678.94 0-100 pg/mL Assessment/Plan Assessment/Plan Assessment Acute on chronic congestive heart failure Questionable pneumonia Chronic kidney disease Status post pacemaker Hypertension Urinary tract infection Plan Admit the patient to Med surge to the hospitalist Lesly Adams nebs Resume home medications Continue treatment per orders. Plan discussed with: Patient My Orders Orders - OLU QUINTANILLA Procedure Category Date Status Time Albuterol Medneb PHA 01/13/25 In Process (Ventolin Medneb) 22:45 Warfarin Per Rx PHA 01/13/25 Pending Protocol (Coumadin 22:45 Furosemide Injection PHA 01/14/25 In Process (Lasix Injection) 06:00 Memantine Tablet PHA 01/14/25 In Process (Namenda Tablet) 10:00 Levothyroxine Tablet PHA 01/14/25 In Process (Synthroid Tablet) 06:00 Clopidogrel Bisulfate PHA 01/14/25 In Process (Plavix) 10:00 Carbidopa W Levodopa PHA 01/14/25 In Process 25/100mg (Sinemet 2 10:00 Basic Metabolic Panel LAB 01/14/25 Logged 04:00 Admit ADMIT 01/13/25 Transmitted 22:42 Renal DIET 01/14/25 Transmitted Standard(2gna,3gk,Lopho) Breakfast Ondansetron Hcl PHA 01/13/25 In Process (Zofran) 22:45 Complete Blood Count LAB 01/14/25 Logged 04:00 Cardiac DIET 01/14/25 Transmitted Diet-2gna,Lofat,Lochol Breakfast Condition: Stable NOE 01/13/25 In Process 22:42 Acetaminophen Tablet PHA 01/13/25 In Process (Tylenol Tablet) 22:45 Bedrest With Bathroom NOE 01/13/25 In Process Privileg 22:42 Prothrombin Time W/ LAB 01/14/25 Logged INR 04:00 Levofloxacin 250mg PHA 01/14/25 In Process (Levaquin 250mg) 10:00 Date of Service: Jan 13, 2025 Billing Provider: OLU QUINTANILLA Common Visit Codes: [id number] INP/OBS CARE (HIGH) OLU QUINTANILLA Jan 14, 2025 03:53
[2025-01-14] MEDS: FUROSEMIDE 20 MG/2 ML VIAL IV SCH (06:00)
[2025-01-14] MEDS: LEVOTHYROXINE SODIUM 100 MCG TAB PO SCH (06:53)
[2025-01-14 07:03] LABS: Chloride 107 mmol/L (98-107); Potassium 4.4 mmol/L (3.5-5.1); Sodium 138 mmol/L (136-145)
[2025-01-14 07:04] LABS: Anion Gap 7 (5-15); Calcium 9.2 mg/dL (8.7-10.4); Carbon Dioxide 24 mmol/L (20-31)
[2025-01-14 07:09] LABS: BUN/Creatinine Ratio 20.8 (10.0-20.0); Blood Urea Nitrogen 20 mg/dL (9-23)
[2025-01-14 07:11] LABS: Basophils # (auto) 0 10 ^3/uL (0-0.2); Basophils % (auto) 0.2 % (0.0-2.0); Eosinophils # (auto) 0 10 ^3/uL (0-0.8); Eosinophils % (auto) 1.1 % (0.0-7.0); Hematocrit 30.3 % (36.0-46.0); Hemoglobin 10.1 g/dL (12.2-16.2); Lymphocytes # (auto) 0.5 10 ^3/uL (0.4-5.4); Mean Corpuscular Hemoglobin 31.6 pg (28.0-32.0); Mean Corpuscular Hgb Conc. 33.3 g/dL (32.0-36.0); Mean Corpuscular Volume 94.9 fL (80.0-100.0); Monocytes # (auto) 0.3 10 ^3/uL (0-1.3); Neutrophils % (auto) 78.7 % (37.0-80.0); Platelet Count (auto) 173 10^3/uL (140-450); Red Cell Distribution Width 16.4 % (11.8-14.3); White Blood Cell 3.8 10^3/uL (4.4-10.8)
[2025-01-14 07:13] LABS: Glucose 74 mg/dL (74-106)
[2025-01-14 07:17] LABS: INR 1.14 (0.9-1.15); Prothrombin Time 11.9 sec (9.3-11.8)
[2025-01-14] MEDS ORDERED: DOXYCYCLINE 100MG/100ML 100 ML IV SCH (08:00)
--- NOTE | 2025-01-14 09:11 | ECG ---
[facility] Test Date: 2025-01-13 Test Time: 16:28:10 [facility] Department: ED Room: 0250 A Gender: F Purchasing Specialist: rubina : 1940 Requested By: MICHELLE VACA Order Number: [id number] Reading MD: Scott Jefferson Measurements Intervals Everly Rate: 79 P: 0 VT: 63 QRS: -76 QRSD: 181 T: 110 QT: 451 QTc: 518 Interpretive Statements Ventricular-paced complexes No further analysis attempted due to paced rhythm Baseline wander in lead(s) V2 Electronically Signed On 01-14-2025 14:11:32 PDT by Scott Jefferson Please click the below link to view image of tracing.
--- NOTE | 2025-01-14 09:50 | DVHPN2 ---
Progress Note - Dictate Date Seen: Jan 14, 2025 Medical Necessity Reason Pt with a Central, PICC or Fol: No Subjective pt well known to me SEVERE PAH SEVERE MR LAE EF50% NOW WITH SOB MCGUIRE vital signs Vital Sign Date Time Temp Pulse Resp B/P (MAP) Pulse Ox O2 Delivery O2 Flow Rate FiO2 01/14/25 08:30 98.1 80 16 100/57 (71) 92 98.1 01/14/25 00:38 Room Air* 0 N/A Mechanical Ventilator+ Total Intake and Output 01/13/25 01/13/25 01/14/25 14:59 22:59 06:59 Intake Total 100 ml 210 ml Balance 100 ml 210 ml medications Current Medications Medications Dose Ordered Sig/Love Route Start Time Stop Time Status Last Admin Dose Admin Warfarin Sodium RX PROTOCOL PER PHARMACY PO 01/13/25 22:45 UNV Furosemide 20 mg BIDD IV 01/14/25 06:00 Memantine 10 mg DAILY PO 01/14/25 10:00 Levothyroxine Sodium 100 mcg QAM@0600 PO 01/14/25 06:00 01/14/25 06:53 100 MCG Clopidogrel Bisulfate 75 mg DAILY PO 01/14/25 10:00 Carbidopa/Levodopa 1 tab BID PO 01/14/25 10:00 Ondansetron HCl 4 mg Q4HP PRN IV 01/13/25 22:45 Acetaminophen 650 mg Q6HP PRN PO 01/13/25 22:45 Albuterol 2.5 mg Q6HWA NEB 01/14/25 12:00 Ipratropium [place] 0.5 mg Q6HWA NEB 01/14/25 12:00 Levofloxacin/ Dextrose 100 ml @ 100 mls/hr DAILY IV 01/14/25 10:00 Future Hold laboratory and microbiology Laboratory Tests 01/14/25 06:24 Test 01/14/25 06:24 Range/Units Serum Glucose 74 74-106 mg/dL Problem List SEVERE PAH SEVERE MR LAE EF50% NOW WITH SOB MCGUIRE Assessment/Plan PT NO A SURGICAL CANDIDATE CONSERVATIVE MEDICAL MANAGEMENT DIURESIS Plan discussed with: Patient JUN MOORE MD Jan 14, 2025 09:50
[2025-01-14] MEDS ORDERED: levoFLOXacin 500MG 100 ML IV SCH ×2 (10:00)
[2025-01-14] MEDS: DOXYCYCLINE 100MG/100ML 100 ML IV SCH (10:00)
[2025-01-14] MEDS ORDERED: levoFLOXacin 250MG 50 ML IV SCH (10:00)
[2025-01-14] MEDS: IPRATROPIUM BROM 0.5 MG/2.5ML INH SOL NEB SCH (10:34)
[2025-01-14] MEDS: ALBUTEROL SULF 2.5 MG/0.5ML(0.5%) NEB SOLN NEB SCH (10:34)
[2025-01-14] MEDS: CLOPIDOGREL BISULFATE 75 MG TAB PO SCH (10:43)
[2025-01-14] MEDS: CARBIDOPA W LEVODOPA 25/100mg TABLET PO SCH (10:43)
[2025-01-14] MEDS: MEMANTINE HCL 5 MG TAB PO SCH (10:43)
--- NOTE | 2025-01-14 11:34 | DVH ---
Bilateral lower extremity venous duplex Clinical History: elevated ddimer Comparison: None Technique: Duplex Doppler evaluation of the deep venous systems of both lower extremities from the common femora l veins to the popliteal veins including color Doppler and spectral/pulsed waveform analysis was perf ormed. Findings: RIGHT SIDE: The common femoral vein demonstrates appropriate compressibility and waveform variability. There is compressibility/patency of the great saphenous vein at the proximal thigh. The femoral vein demonstrates appropriate compressibility and waveform variability. The deep femoral vein demonstrates appropriate compressibility and waveform variability. The popliteal vein demonstrates appropriate compressibility and waveform variability. There is normal compressibility at the tibioperoneal trunk. LEFT SIDE: The common femoral vein demonstrates appropriate compressibility and waveform variability. There is compressibility/patency of the great saphenous vein at the proximal thigh. The femoral vein demonstrates appropriate compressibility and waveform variability. The deep femoral vein demonstrates appropriate compressibility and waveform variability. The popliteal vein demonstrates appropriate compressibility and waveform variability. There is normal compressibility at the tibioperoneal trunk. Impression: No right or left femoropopliteal venous thrombosis.
[2025-01-14] MEDS ORDERED: IPRATROPIUM BROM 0.5 MG/2.5ML INH SOL NEB SCH (12:00)
[2025-01-14] MEDS ORDERED: ALBUTEROL SULF 2.5 MG/0.5ML(0.5%) NEB SOLN NEB SCH (12:00)
--- NOTE | 2025-01-14 12:25 | DVHPNRES ---
Progress Note Date Seen: Jan 14, 2025 Resident Creating Document: VENESSA SMITH RESIDENT Medical Necessity Reason Pt with a Central, PICC or Fol: No Subjective Review of Systems 84-year-old female presents for evaluation of shortness for breath. Past Medical History: GERD, hypertension, mi, thyroid, CVA, CHF, AFib, home O2 at 2lts Past Surgical History: Pacemaker, tonsillectomy, hysterectomy, appendectomy Family History: Noncontributory SH: Smoke: No. ALCOHOL: none. Drugs: None Patient presents with a three day history of worsening shortness for breath with associated chest tightness and a nonproductive cough. No fever reported. No active chest pain. On my initial assessment, patient was seen and examined at bedside. She currently states having mild-mod SOB, denies any chest pain, abdominal pain, dysuria, nausea, vomiting, diarrhea, constipation, dizziness, lightheadedness. Objective vital signs Vital Sign Date Time Temp Pulse Resp B/P (MAP) Pulse Ox O2 Delivery O2 Flow Rate FiO2 01/14/25 12:19 98.0 60 17 101/54 (70) 93 98.0 01/14/25 10:34 Nasal Cannula* 2 28 Total Intake and Output 01/13/25 01/13/25 01/14/25 15:00 23:00 07:00 Intake Total 100 ml 210 ml Balance 100 ml 210 ml medications Current Medications Medications Dose Ordered Sig/Love Route Start Time Stop Time Status Last Admin Dose Admin Warfarin Sodium RX PROTOCOL PER PHARMACY PO 01/13/25 22:45 Furosemide 20 mg BIDD IV 01/14/25 06:00 Memantine 10 mg DAILY PO 01/14/25 10:00 01/14/25 10:43 10 MG Levothyroxine Sodium 100 mcg QAM@0600 PO 01/14/25 06:00 01/14/25 06:53 100 MCG Clopidogrel Bisulfate 75 mg DAILY PO 01/14/25 10:00 01/14/25 10:43 75 MG Carbidopa/Levodopa 1 tab BID PO 01/14/25 10:00 01/14/25 10:43 1 TAB Ondansetron HCl 4 mg Q4HP PRN IV 01/13/25 22:45 Acetaminophen 650 mg Q6HP PRN PO 01/13/25 22:45 Albuterol 2.5 mg Q4HWA NEB 01/14/25 10:00 01/14/25 10:34 2.5 MG Ipratropium [place] 0.5 mg Q4HWA [facility] 01/14/25 10:00 01/14/25 10:34 0.5 MG Ceftriaxone Sodium 50 ml @ 100 mls/hr DAILY@09 IV 01/15/25 09:00 Doxycycline Hyclate 100 ml @ 50 mls/hr Q12H IV 01/14/25 10:00 Examination Physical examination as below: General: Awake, alert, comfortable appearing, in mild distress due to SOB HEENT: Head is normocephalic and atraumatic. Pupils are equal, round, and reactive to light. Extraocular muscles are intact. No nasal discharge. No facial trauma. Intraoral exam shows moist mucous membranes with no tonsillar enlargement or exudate. Neck: Supple with no cervical lymphadenopathy. Heart: Regular rate without murmur, rub, or gallop. Lungs: mild-mod bilateral crackles Abdomen: No external sign of injury. Bowel sounds are present. Abdomen is soft, nontender. No rebound, no guarding, no rigidity. There are no palpable masses. There is no flank pain on exam. Extremities: Strong peripheral pulses. There is no clubbing, no cyanosis, and no edema. Skin: No rash. Neurologic: Cranial nerves II-XII intact without motor, sensory, or cerebellar deficit, no asterixis. laboratory and microbiology Laboratory Tests 01/14/25 06:24 Test 01/14/25 06:24 Range/Units Serum Glucose 74 74-106 mg/dL Labs and/or images reviewed: Labs reviewed by me, Image(s) reviewed by me Problem List/Assessment/Plan Problem List/Assessment/Plan Acute on chronic diastolic/systolic congestive heart failure Acute on chronic hypoxic respiratory failure Pneumonia Gram-positive versus Gram-negative, atypical Urinary tract infection Chronic kidney disease Status post pacemaker Hypertension QT prolongation Leukopenia Anemia, mild normo normo GERD H/o CVA H/o afib Plan: Rocephin IV q.d. Doxycycline IV Panculture pending covid and flu pending echo Lasix 20mg iv bid, have one extra 40mg iv once Duonebds q4hrs continue home meds carbidopa/levodopa, amiodarone continue warfarin PT request Goals of care were discussed for over 30 minutes. FULL CODE. Case was discussed with Dr. Foote Plan discussed with: Patient, Other (RN) My Orders My Orders Orders - VENESSA SMITH RESIDENT Procedure Category Date Status Time Covid19 Antigen Janie LAB 01/14/25 Logged Rapid Influenza A&B LAB 01/14/25 Logged 07:48 Mrsa Screen DAISY 01/14/25 Logged 07:48 Respiratory Culture DAISY 01/14/25 Logged W/ Gs 07:48 Blood Culture DAISY 01/14/25 In Process 07:48 Urine Bacterial DAISY 01/14/25 Logged Culture 07:48 Bilat Lower Dvt US 01/14/25 Resulted 07:48 Albuterol Medneb PHA 01/14/25 In Process (Ventolin Medneb) 10:00 Ipratropium Medneb PHA 01/14/25 In Process (Atrovent Medneb) 10:00 Ceftriaxone 1gm/50ml PHA 01/15/25 In Process D5w (Rocephin) 09:00 Doxycycline PHA 01/14/25 In Process 100mg/100ml 10:00 Date of Service: Jan 14, 2025 Billing Provider: DIPESH FOOTE MD Common Visit Codes: [id number] INP/OBS CARE(HIGH) VENESSA SMITH RESIDENT Jan 14, 2025 12:25 DIPESH FOOTE MD Jan 15, 2025 11:13
[2025-01-14] MEDS ORDERED: PIPERACILLIN-TAZOB 3.375GM 100 ML IV SCH (14:00)
[2025-01-14] MEDS: FUROSEMIDE 40 MG/4 ML VIAL IV ONE (16:30)
[2025-01-14] MEDS ORDERED: WARFARIN SODIUM 1 MG TAB PO ONE (17:00)
[2025-01-14] MEDS ORDERED: Ensure Enlive Strawberry 8oz Bottle PO SCH (18:00)
[2025-01-14 19:32] LABS: COVID19 ANTIGEN SOFIA FIA NEGATIVE (NEGATIVE); Rapid Influenza A Negative (Negative); Rapid Influenza B Negative (Negative)
[2025-01-15] VITALS (14 sets, daily range): BP systolic 110–119; BP diastolic 39–62; PULSE 72–89; RESP 16–20; TEMP 97.2–98; O2SAT 95–100
[2025-01-15 07:02] LABS: Basophils # (auto) 0 10 ^3/uL (0-0.2); Basophils % (auto) 0.5 % (0.0-2.0); Eosinophils # (auto) 0 10 ^3/uL (0-0.8); Eosinophils % (auto) 0.8 % (0.0-7.0); Hematocrit 31.3 % (36.0-46.0); Hemoglobin 10.3 g/dL (12.2-16.2); Lymphocytes # (auto) 0.5 10 ^3/uL (0.4-5.4); Lymphocytes % (auto) 10.7 % (10.0-50.0); Mean Corpuscular Hemoglobin 31.1 pg (28.0-32.0); Mean Corpuscular Volume 94.2 fL (80.0-100.0); Monocytes # (auto) 0.3 10 ^3/uL (0-1.3); Monocytes % (auto) 5.8 % (0.0-12.0); Neutrophils % (auto) 82.2 % (37.0-80.0); Platelet Count (auto) 183 10^3/uL (140-450); Red Blood Cells 3.32 10^6/uL (4.0-5.20); Red Cell Distribution Width 16.1 % (11.8-14.3); White Blood Cell 4.9 10^3/uL (4.4-10.8)
[2025-01-15 07:09] LABS: Alanine Aminotransferase < 9 U/L (7-40); Alkaline Phosphatase 86 U/L (46-116); Anion Gap 8 (5-15); Aspartate Aminotransferase 21 U/L (13-40); BUN/Creatinine Ratio 21.7 (10.0-20.0); Bilirubin, Total 0.9 mg/dL (0.2-1.0); Blood Urea Nitrogen 20 mg/dL (9-23); Calcium 9.4 mg/dL (8.7-10.4); Carbon Dioxide 27 mmol/L (20-31); Chloride 102 mmol/L (98-107); Glucose 78 mg/dL (74-106); INR 1.12 (0.9-1.15); Magnesium 2.1 mg/dL (1.6-2.6); Partial Thromboplastin Time 29.1 SEC (24.5-34.5); Potassium 4.3 mmol/L (3.5-5.1); Prothrombin Time 11.7 sec (9.3-11.8); Sodium 137 mmol/L (136-145); Total Protein 6.5 g/dL (5.7-8.2)
[2025-01-15] MEDS: cefTRIAXone 1GM/50ML D5W 50 ML IV SCH (08:06)
[2025-01-15] MEDS: Nepro With Carbsteady ButterPecan 8oz Carton PO SCH (08:06)
--- NOTE | 2025-01-15 09:08 | DVHPN2 ---
Progress Note - Dictate Date Seen: Jan 15, 2025 Medical Necessity Reason Pt with a Central, PICC or Fol: No Subjective pt well known to me SEVERE PAH SEVERE MR LAE EF50% NOW WITH SOB MCGUIRE vital signs Vital Sign Date Time Temp Pulse Resp B/P (MAP) Pulse Ox O2 Delivery O2 Flow Rate FiO2 01/15/25 06:35 98 Nasal Cannula* 2 01/15/25 06:35 72 18 01/15/25 05:29 118/39 01/15/25 05:00 98.0 98.0 Total Intake and Output 01/14/25 01/14/25 01/15/25 15:00 23:00 07:00 Intake Total 420 ml 310 ml Output Total 850 ml Balance 420 ml -540 ml medications Current Medications Medications Dose Ordered Sig/Love Route Start Time Stop Time Status Last Admin Dose Admin Warfarin Sodium RX PROTOCOL PER PHARMACY PO 01/13/25 22:45 Furosemide 20 mg BIDD IV 01/14/25 06:00 01/15/25 05:29 20 MG Memantine 10 mg DAILY PO 01/14/25 10:00 01/14/25 10:43 10 MG Levothyroxine Sodium 100 mcg QAM@0600 PO 01/14/25 06:00 01/15/25 05:30 100 MCG Clopidogrel Bisulfate 75 mg DAILY PO 01/14/25 10:00 01/14/25 10:43 75 MG Carbidopa/Levodopa 1 tab BID PO 01/14/25 10:00 01/14/25 22:12 1 TAB Ondansetron HCl 4 mg Q4HP PRN IV 01/13/25 22:45 Acetaminophen 650 mg Q6HP PRN PO 01/13/25 22:45 Albuterol 2.5 mg Q4HWA NEB 01/14/25 10:00 01/15/25 06:35 2.5 MG Ipratropium [place] 0.5 mg Q4HWA NEB 01/14/25 10:00 01/15/25 06:35 0.5 MG Ceftriaxone Sodium 50 ml @ 100 mls/hr DAILY@09 IV 01/15/25 09:00 01/15/25 08:06 100 MLS/HR Doxycycline Hyclate 100 ml @ 50 mls/hr Q12H IV 01/14/25 10:00 01/14/25 22:11 50 MLS/HR Amiodarone HCl 200 mg DAILY PO 01/15/25 10:00 Enteral Nutritional Formula 240 ml TIDWM PO 01/15/25 08:00 01/15/25 08:06 240 ML laboratory and microbiology Laboratory Tests 01/15/25 06:00 Test 01/15/25 06:00 Range/Units Serum Glucose 78 74-106 mg/dL Problem List SEVERE PAH SEVERE MR LAE EF50% NOW WITH SOB MCGUIRE AFIB HX OF CVA Assessment/Plan PT NO A SURGICAL CANDIDATE CONSERVATIVE MEDICAL MANAGEMENT DIURESIS NO ACCURATE I AND Os Plan discussed with: Patient JUN MOORE MD Jan 15, 2025 09:08
[2025-01-15] MEDS: AMIODARONE HCL 200 MG TAB PO SCH (10:06)
[2025-01-15] MEDS ORDERED: DOXY1CAP57 PO (11:28)
[2025-01-15] MEDS ORDERED: CEFP200T15 PO (11:28)
--- NOTE | 2025-01-15 11:47 | DVHDSRES ---
Discharge Summary Date of Admission Resident Creating Document: VENESSA SMITH RESIDENT Jan 13, 2025 at 22:42 Date of Discharge: Jan 15, 2025 Admitting Diagnosis Pneumonia Labs/Diagnostic Data: Laboratory Results Test 01/15/25 06:00 01/14/25 19:28 01/14/25 00:20 01/13/25 23:00 White Blood Count 4.9 10^3/uL (4.4-10.8) Red Blood Count 3.32 10^6/uL (4.0-5.20) Hemoglobin 10.3 g/dL (12.2-16.2) Hematocrit 31.3 % (36.0-46.0) Mean Corpuscular Volume 94.2 fL (80.0-100.0) Mean Corpuscular Hemoglobin 31.1 pg (28.0-32.0) Mean Corpuscular Hemoglobin Concent 33.0 g/dL (32.0-36.0) Red Cell Distribution Width 16.1 % (11.8-14.3) Platelet Count 183 10^3/uL (140-450) Mean Platelet Volume 7.9 fL (6.9-10.8) Neutrophils (%) (Auto) 82.2 % (37.0-80.0) Lymphocytes (%) (Auto) 10.7 % (10.0-50.0) Monocytes (%) (Auto) 5.8 % (0.0-12.0) Eosinophils (%) (Auto) 0.8 % (0.0-7.0) Basophils (%) (Auto) 0.5 % (0.0-2.0) Neutrophils # (Auto) 4.0 10 ^3/uL (1.6-8.6) Lymphocytes # (Auto) 0.5 10 ^3/uL (0.4-5.4) Monocytes # (Auto) 0.3 10 ^3/uL (0-1.3) Eosinophils # (Auto) 0 10 ^3/uL (0-0.8) Basophils # (Auto) 0 10 ^3/uL (0-0.2) Nucleated Red Blood Cells 0.0 % Prothrombin Time 11.7 sec (9.3-11.8) Prothrombin Time INR 1.12 (0.9-1.15) Activated Partial Thromboplast Time 29.1 SEC (24.5-34.5) Sodium Level 137 mmol/L (136-145) Potassium Level 4.3 mmol/L (3.5-5.1) Chloride Level 102 mmol/L (98-107) Carbon Dioxide Level 27 mmol/L (20-31) Anion Gap 8 (5-15) Blood Urea Nitrogen 20 mg/dL (9-23) Creatinine 0.92 mg/dL (0.550-1.02) Glomerular Filtration Rate Calc 61 mL/min (>90) BUN/Creatinine Ratio 21.7 (10.0-20.0) Serum Glucose 78 mg/dL (74-106) Calcium Level 9.4 mg/dL (8.7-10.4) Magnesium Level 2.1 mg/dL (1.6-2.6) Total Bilirubin 0.9 mg/dL (0.2-1.0) Aspartate Amino Transferase (AST) 21 U/L (13-40) Alanine Aminotransferase (ALT) < 9 U/L (7-40) Alkaline Phosphatase 86 U/L (46-116) Total Protein 6.5 g/dL (5.7-8.2) Albumin 4.0 g/dL (3.2-4.8) Influenza Type A Antigen Negative (Negative) Influenza Type B Antigen Negative (Negative) SARS-CoV-2 Antigen (Rapid) Negative (NEGATIVE) Urine Color Yellow (Yellow) Urine Clarity Clear (Clear) Urine pH 7.5 (5.0-9.0) Urine Specific [place] 1.022 (1.001-1.035) Urine Protein Trace (Negative) Urine Ketones Negative (Negative) Urine Blood Negative /uL (Negative) Urine Nitrite Negative (Negative) Urine Bilirubin Negative (Negative) Urine Urobilinogen Normal mg/dL (Negative) Urine Leukocyte Esterase 3+ /uL (Negative) Urine RBC 3 /hpf (0 - 4) Urine Microscopic WBC 43 /HPF (0-5) Urine Squamous Epithelial Cells Few /hpf (<5) Urine Bacteria None seen /hpf (None Seen) Urine Glucose Normal mg/dL (Normal) D-Dimer, Quantitative 0.62 mg/L FEU (0.0-0.49) Lactic Acid Level 1.3 mmol/L (0.4-2.0) Test 01/13/25 18:14 01/13/25 17:18 Troponin I High Sensitivity 9 ng/L (</=34) B-Type Natriuretic Peptide 678.94 pg/mL (0-100) Other Laboratory Tests 01/15/25 06:00 Brief Hx & Hospital Course: 84-year-old female presents for evaluation of shortness for breath. Past Medical History: GERD, hypertension, mi, thyroid, CVA, CHF, AFib, home O2 at 2lts Past Surgical History: Pacemaker, tonsillectomy, hysterectomy, appendectomy Family History: Noncontributory SH: Smoke: No. ALCOHOL: none. Drugs: None Patient presents with a three day history of worsening shortness for breath with associated chest tightness and a nonproductive cough. No fever reported. No active chest pain. On my initial assessment, patient was seen and examined at bedside. She stated having mild-mod SOB, denies any chest pain, abdominal pain, dysuria, nausea, vomiting, diarrhea, constipation, dizziness, lightheadedness. Patient can not assess x-ray which demonstrated pulmonary edema, questionable pneumonia, patient was started on IV antibiotics, he was given breathing treatments and also patient was diuresed. Patient was assessed by infrastructure architect. Patient breathing improved significantly. She stated feeling much better than on admission. She currently states feeling well, denies any significant shortness of breath, chest pain, abdominal pain, dysuria, nausea, vomiting, diarrhea, constipation, dizziness, lightheadedness. She is currently tolerating diet. Physical examination as below: General: Awake, alert, comfortable appearing, in mild distress due to SOB HEENT: Head is normocephalic and atraumatic. Pupils are equal, round, and reactive to light. Extraocular muscles are intact. No nasal discharge. No facial trauma. Intraoral exam shows moist mucous membranes with no tonsillar enlargement or exudate. Neck: Supple with no cervical lymphadenopathy. Heart: Regular rate without murmur, rub, or gallop. Lungs: Scattered bilateral crackles Abdomen: No external sign of injury. Bowel sounds are present. Abdomen is soft, nontender. No rebound, no guarding, no rigidity. There are no palpable masses. There is no flank pain on exam. Extremities: Strong peripheral pulses. There is no clubbing, no cyanosis, and no edema. Skin: No rash. Neurologic: Cranial nerves II-XII intact without motor, sensory, or cerebellar deficit, no asterixis. Patient will be discharge home, she will continue home medications as prescribed. She will continue taking cefpodoxime and doxycycline. She will see Dr. Medina in the outpatient setting. She will follow-up with PCP in 1-2 weeks. Patient verbalized understanding and agree with the DC plan, we spent over 30 minutes explaining the plan. Case was discussed with Dr. Foote Operations or Procedures [address] [address] Ph: [phone] DIAGNOSTIC IMAGING Diagnostic Imaging Report : [id number] Signed PATIENT: ELVA TARANGO JACCT: [id number] UNIT: [id number] : 1940 LOC: ER ROOM / BED: / AGE / SEX: 84 / F ADM STATUS: REG ER SERVICE 33 ORDERING PHYSICIAN: MICHELLE VACA MD PROCEDURE(s): CXRP - CHEST PORTABLE REASON: sob ORDER NUMBER(s): [id number], ACCESSION NUMBER(s): [id number] EXAM: XY CHEST PORTABLE HISTORY: sob COMPARISON: Chest x-ray dated 02/13/2023. TECHNIQUE: Portable upright AP view of the chest was performed. FINDINGS: Left chest pacemaker is re-identified. There are bilateral lung base infiltrates and/or effusions, similar to that seen on the previous chest x-ray. There is interstitial prominence centrally and in the lung bases. No pneumothorax. The heart is enlarged., although the cardiac margins are partially obscured. There is thoracic levoscoliosis. IMPRESSION: 1. Cardiomegaly and interstitial prominence suggestive of CHF. 2. Bilateral lung base infiltrates and/or effusions, similar to that seen on previous chest x-ray from January 2023, which may indicate recurrent infiltrates or chronic bibasilar scarring. ATED BY: IRAJ JONES MD DICTATED DATE/TIME: 01/13/251701 SIGNED BY: IRAJ JONES MD SIGNED DATE/TIME: 01/13/251701 CC: [facility] [id number] [place] [id number] Ph: [phone] DIAGNOSTIC IMAGING Diagnostic Imaging Report : [id number] Signed PATIENT: ELVA TARANGO JACCT: [id number] UNIT: [id number] : 1940 LOC: [facility] ROOM / BED: 0250 / A AGE / SEX: 84 / F ADM STATUS: ADM IN SERVICE 0748 ORDERING PHYSICIAN: VENESSA SMITH RESIDENT PROCEDURE(s): BLDVT - BiLat Lower DVT REASON: elevated ddimer ORDER NUMBER(s): [id number], ACCESSION NUMBER(s): [id number] Bilateral lower extremity venous duplex Clinical History: elevated ddimer Comparison: None Technique: Duplex Doppler evaluation of the deep venous systems of both lower extremities from the common femoral veins to the popliteal veins including color Doppler and spectral/pulsed waveform analysis was performed. Findings: RIGHT SIDE: The common femoral vein demonstrates appropriate compressibility and waveform variability. There is compressibility/patency of the great saphenous vein at the proximal thigh. The femoral vein demonstrates appropriate compressibility and waveform variability. The deep femoral vein demonstrates appropriate compressibility and waveform variability. The popliteal vein demonstrates appropriate compressibility and waveform variability. There is normal compressibility at the tibioperoneal trunk. LEFT SIDE: The common femoral vein demonstrates appropriate compressibility and waveform variability. There is compressibility/patency of the great saphenous vein at the proximal thigh. The femoral vein demonstrates appropriate compressibility and waveform variability. The deep femoral vein demonstrates appropriate compressibility and waveform variability. The popliteal vein demonstrates appropriate compressibility and waveform variability. There is normal compressibility at the tibioperoneal trunk. Impression: No right or left femoropopliteal venous thrombosis. ATED BY: TIFFANY MOTT MD DICTATED DATE/TIME: 01/14/25 1028 SIGNED BY: TIFFANY MOTT MD SIGNED DATE/TIME: 01/14/25 1028 CC: Condition at Discharge: Guarded Final Diagnosis/Problems List Acute on chronic diastolic/systolic congestive heart failure Acute on chronic hypoxic respiratory failure Pneumonia Gram-positive versus Gram-negative, atypical Urinary tract infection Chronic kidney disease Status post pacemaker Hypertension QT prolongation Leukopenia Anemia, mild normo normo GERD H/o CVA H/o afib Discharge Disposition: Home Discharge Instruct/Medications Diet: Cardiac 2g Na,low cholest Activity: No Restrictions, As Tolerated Follow Up/Referral: fu with pcp in 1-2 weeks Medications: continue meds as prescribed Discharge Statement: "Patient was advised to return to the ER or call 911 if any headaches, dizziness, shortness of breath, chest pain, abdominal pain, bleeding, fevers, or worsening of medical condition. Patient was counseled about treatment plan, medications, possible side effects, patientverbalized understanding. All questions were answered to the best of my ability. This discharge took greater then 30 minutes in planning, reviewing documentation, counseling the patient, and discussing with other team members." ASSESSMENT ASSESSMENT Assessment pneumonia Date of Service: Jan 15, 2025 Billing Provider: DIPESH FOOTE MD Common Visit Codes: 22935-UBW/OBS DISCH DAY >30min VENESSA SMITH RESIDENT Jan 15, 2025 11:47 DIPESH FOOTE MD Jan 17, 2025 08:56
[2025-01-15 14:06] LABS: Base Excess 1.8 mmol/L (-2.0-3.0)
[2025-01-15] MEDS: WARFARIN SODIUM 1 MG TAB PO ONE (17:24)
--- NOTE | 2025-01-18 16:52 | DVHSR ---
APPROVED REPORT EXAM: Two-dimensional and M-mode echocardiogram with Doppler and color Doppler. Blood Pressure: 97/45 mmHg INDICATION CHF Surgery/Intervention Pacemaker: RISK [employer]CTORS Height: 65, Weight: 110 DIMENSIONS LVDd4.3 (3.8-5.7cm)LA (2D)7.3 (1.9-4.0cm)Aortic Root3.4 (2.0-3.7cm) LVDs3.2 (2.5-4.0cm)LA (MM) (1.9-4.0cm)Aortic Cusp Exc1.8 (1.5-2.0cm) EF (%) 50.0 (55-70%)Rt. Atrium5.5 (1.9-4.0cm)Asc. Aorta cm IVSd0.7 (0.7-1.1cm)RV (D) (1.8-2.4cm) PWd1.1 (0.7-1.1cm) Mitral Valve MitralMitral Stenosis E wave1.81m/sMV Mean GR.4mmHg A wavem/sMV Peak GR.97mmHg E/A ratio0.02D MVAcm2 DECEL TimemsPRESS 1/2 [place]21lm IVRTmsDop MVA3.62cm2 Aortic Valve Aortic ValveAortic Stenosis V10.52m/Rosalva Mean GR.2mmHg V20.86m/Rosalva Peak GR.3mmHg LVOT Diameter1.9 (1.8-2.4cm)Doppler AVA1.71cm2 Tricuspid Valve TR Velocity3.59m/s [id number] Conclusion LVH EF 55% SEVERE TR SEVERE MR MARKED LAE BREANNE SEVERE PAH
== END 2025-01-15 19:28 | disposition home or self-care (01) | DRG 177 ==
LOC: EDBD 16:26 → ER 16:28 → OVERFLOW 22:42 → EAST 22:47
PROVIDERS: ADMIT Internal Medicine; ATTEND Internal Medicine
DX: J15.69 Pneumonia due to other Gram-negative bacteria (principal); I50.43 Acute on chronic combined systolic (congestive) and diastolic (congestive) heart failure; J96.21 Acute and chronic respiratory failure with hypoxia; N39.0 Urinary tract infection, site not specified; I13.0 Hypertensive heart and chronic kidney disease with heart failure and stage 1 through stage 4 chronic kidney disease, or unspecified chronic kidney disease; J15.9 Unspecified bacterial pneumonia; Z20.822 Contact with and (suspected) exposure to COVID-19; N18.9 Chronic kidney disease, unspecified; K21.9 Gastro-esophageal reflux disease without esophagitis; D64.9 Anemia, unspecified; I48.91 Unspecified atrial fibrillation; E03.9 Hypothyroidism, unspecified; Z86.73 Personal history of transient ischemic attack (TIA), and cerebral infarction without residual deficits; Z95.0 Presence of cardiac pacemaker; Z90.710 Acquired absence of both cervix and uterus; Z88.0 Allergy status to penicillin; Z79.899 Other long term (current) drug therapy
CPT/HCPCS: 36415; 36600; 71045; 80048; 80053; 81001; 82805; 83605; 83735; 83880; 84484; 85025; 85379; 85610; 85730; 87040; 87081; 87086; 87426; 87804; 93005; 93306; 93970; 94640; 96365; 97163; 99291; 99292; G0378; J1956

== ENCOUNTER → 2025-01-18 | Outpatient (CLI) | payer OTHER, BC ==
[~2025-01-18] MED LIST changes: +CEFP200T15 PO; +DOXY1CAP57 PO
[2025-01-18 10:30] VITALS: BP 99/58; PULSE 80; RESP 16; O2SAT 93
[2025-01-18] MEDS: MULTIPLE VIT 10 ML IV ONE (11:08)
[2025-01-18] MEDS: MVI in SODIUM CHLORIDE 0.9% 500 ML IVB ONE (11:18)
[2025-01-18] MEDS: FUROSEMIDE 20 MG/2 ML VIAL ONE (13:02)
[2025-01-18] MEDS: FUROSEMIDE 20 MG/2 ML VIAL IV ONE (13:57)
[2025-01-18 14:01] VITALS: BP 96/48; PULSE 80; RESP 16; O2SAT 93
== END | disposition home or self-care (01) ==
LOC: CHF HDHVI 11:02
PROVIDERS: ATTEND Internal Medicine Cardiovascular Disease
DX: E86.0 Dehydration (principal); I13.0 Hypertensive heart and chronic kidney disease with heart failure and stage 1 through stage 4 chronic kidney disease, or unspecified chronic kidney disease; I50.43 Acute on chronic combined systolic (congestive) and diastolic (congestive) heart failure; N18.2 Chronic kidney disease, stage 2 (mild); K21.9 Gastro-esophageal reflux disease without esophagitis; E03.9 Hypothyroidism, unspecified; I25.2 Old myocardial infarction; I48.19 Other persistent atrial fibrillation; E78.5 Hyperlipidemia, unspecified; M19.90 Unspecified osteoarthritis, unspecified site; J44.9 Chronic obstructive pulmonary disease, unspecified; I25.10 Atherosclerotic heart disease of native coronary artery without angina pectoris; Z86.73 Personal history of transient ischemic attack (TIA), and cerebral infarction without residual deficits; Z87.440 Personal history of urinary (tract) infections; Z95.0 Presence of cardiac pacemaker
CPT/HCPCS: 96365; 96366; 96375; G0463; J1940; J3411; J3475; 96360; 96361

== ENCOUNTER → 2025-02-18 | Outpatient (CLI) | payer OTHER, BC ==
[2025-02-18 15:35] LABS: Basophils # (auto) 0 10 ^3/uL (0-0.2); Basophils % (auto) 0.5 % (0.0-2.0); Eosinophils # (auto) 0.1 10 ^3/uL (0-0.8); Eosinophils % (auto) 1.6 % (0.0-7.0); Hematocrit 34.3 % (36.0-46.0); Hemoglobin 11.3 g/dL (12.2-16.2); Lymphocytes # (auto) 0.5 10 ^3/uL (0.4-5.4); Mean Corpuscular Hemoglobin 30.1 pg (28.0-32.0); Monocytes # (auto) 0.2 10 ^3/uL (0-1.3); Monocytes % (auto) 5.5 % (0.0-12.0); Neutrophils # (auto) 3.2 10 ^3/uL (1.6-8.6); Neutrophils % (auto) 79.4 % (37.0-80.0); Platelet Count (auto) 218 10^3/uL (140-450); Red Blood Cells 3.77 10^6/uL (4.0-5.20); Red Cell Distribution Width 16.3 % (11.8-14.3)
[2025-02-18 16:25] LABS: Albumin 4.5 g/dL (3.2-4.8); Alkaline Phosphatase 103 U/L (46-116); Anion Gap 11 (5-15); Aspartate Aminotransferase 27 U/L (13-40); BUN/Creatinine Ratio 28.8 (10.0-20.0); Carbon Dioxide 25 mmol/L (20-31); Chloride 103 mmol/L (98-107); LDL Cholesterol 95 mg/dL (< 100); Potassium 4.5 mmol/L (3.5-5.1); Sodium 139 mmol/L (136-145); Total Protein 7.5 g/dL (5.7-8.2); Triglycerides 91 mg/dL (< 150)
[2025-02-18 16:26] LABS: Alanine Aminotransferase 9 U/L (7-40); Blood Urea Nitrogen 40 mg/dL (9-23); Cholesterol 148 mg/dL (< 200); Glucose 115 mg/dL (74-106); HDL Cholesterol 45 mg/dL (40-59)
[2025-02-18 16:27] LABS: Bilirubin, Total 0.7 mg/dL (0.2-1.0)
== END | disposition home or self-care (01) ==
LOC: LAB 14:35
PROVIDERS: ATTEND Internal Medicine
DX: I13.0 Hypertensive heart and chronic kidney disease with heart failure and stage 1 through stage 4 chronic kidney disease, or unspecified chronic kidney disease (principal); N18.31 Chronic kidney disease, stage 3a; I50.9 Heart failure, unspecified; E55.9 Vitamin D deficiency, unspecified; E87.6 Hypokalemia; R82.90 Unspecified abnormal findings in urine; Z13.1 Encounter for screening for diabetes mellitus; Z00.01 Encounter for general adult medical examination with abnormal findings
CPT/HCPCS: 36415; 80053; 80061; 82306; 84439; 84443; 85025

== ENCOUNTER → 2025-03-04 | Outpatient (CLI) | payer OTHER, BC | END | disposition home or self-care (01) | LOC: Rad HDHVI 09:41 | PROVIDERS: ATTEND Internal Medicine Cardiovascular Disease | DX: I08.8 Other rheumatic multiple valve diseases (principal); I42.0 Dilated cardiomyopathy; I50.32 Chronic diastolic (congestive) heart failure | CPT/HCPCS: 93306 ==

== ENCOUNTER 2025-04-29 07:25 | Inpatient (IN) | payer OTHER, BC ==
[~2025-04-29] VITALS: Ht 157.5 cm; Wt 58.8 kg
[2025-04-29] VITALS (31 sets, daily range): BP systolic 91–126; BP diastolic 41–62; PULSE 75–156; RESP 12–22; TEMP 97.7–98.7; O2SAT 87–100
[2025-04-29] MEDS: LACTATED RINGER'S 1,500 ML IV ONE (08:24)
--- NOTE | 2025-04-29 08:26 | ED.PDOC ---
History of Present Illness HPI Comments 84 y/o F, BIBA, with PMHx of HTN, AFib, CHF, CVA, GERD, IN, and thyroid disease presents to the ED for CC of generalized weakness. EMS reports, patient is coming from home where she c/o generalized weakness with associated symptoms of poor appetite onset, x3days. Per EMS, in route to the ED patient has been and hypotensive with a most recent blood pressure of 90/60mmHg. Patient denies fever, chills, cold symptoms, nausea, vomiting, or diarrhea. No other associated symptoms, modifiers, recent injuries or sick contacts present at this time. Chief Complaint: General Weakness Time Seen by MD: 07:45 Primary Care Provider: UNKNOWN Reviewed Notes: Nurses Notes, Civil Preparedness Training Officer Notes, Medications, Allergies Allergies: Coded Allergies: Penicillins (Verified Allergy, Unknown, 02/08/16) Home Meds Active Scripts Doxycycline Monohydrate (Doxycycline Monohydrate) 100 Mg Cap, 1 CAP PO BID for 5 Days, #28 CAP Prov:VENESSA SMITH RESIDENT 01/15/25 Cefpodoxime Proxetil (Cefpodoxime Proxetil) 200 Mg Tab, 1 TAB PO BID for 7 Days, #14 TAB Prov:VENESSA SMITH RESIDENT 01/15/25 Amiodarone Hcl (Amiodarone Hcl) 200 Mg Tab, 200 MG PO DAILY for 30 Days Prov:NEREYDA BERNARD MD 02/09/16 Reported Medications Levothyroxine Sodium (Levothyroxine Sodium) 100 Mcg Tab, 1 TAB PO DAILY 04/29/25 Clopidogrel Bisulfate (CLOPIDOGREL) 75 Mg Tab, 1 TAB PO DAILY 04/29/25 Furosemide (Furosemide) 20 Mg Tab, 1 TAB PO DAILY 04/29/25 Memantine Hydrochloride (Memantine HCl) 10 Mg Tab, 1 TAB PO DAILY 04/29/25 Amiodarone HCl (Amiodarone Hydrochloride) 400 Mg Tab, 1 TAB PO DAILY 04/29/25 Multiple Vitamins W/ Minerals (PRESERVISION AREDS) Areds Tab, 1 OR, TAB 09/15/18 Carbidopa-Levodopa (Carbidopa/Levodopa Odt 25-100 mg) 1 Tab Tab, 1 TAB PO HS, TAB 09/15/18 Warfarin Sodium (Warfarin Sodium) 4 Mg Tab, 4 MG PO EOD for 30 Days, MG 09/15/18 Pravastatin Sodium (PRAVACHOL TABLET) 20 Mg Tb, 80 MG DAILY, #90 02/15/17 Hydrocodone-Acetaminophen (Hydrocodone/Acetaminophen 10-325 mg) 1 Tab Tab, 0.5 TAB PO Q8HR, #90 02/15/17 Magnesium Oxide (Mag-Oxide) 400 Mg Tab, BID, #180 02/15/17 Isosorbide Mononitrate (Isosorbide Mononitrate Er) 30 Mg Tab, DAILY, #90 02/15/17 Warfarin Sodium (Warfarin Sodium) 3 Mg Tab, 3 MG PO EOD, #90 02/15/17 Metoprolol Tartrate (LOPRESSOR TABLET) 50 Mg Tb, 50 MG PO DAILY, #90 02/15/17 Alprazolam (Alprazolam) 0.25 Mg Tab, 0.25 MG PO QHSP, #90 02/15/17 Information Source: Patient, Emergency Med Personnel Mode of Arrival: EMS Severity: Moderate Timing: Days Duration: Since onset Prehospital treatment: None Past Medical History PAST MEDICAL HISTORY: AFIB, CHF, CVA, GERD, HTN, IN, Thyroid Surgical History: Appendectomy, Hysterectomy, Pacemaker, Tonsillectomy AQUATICS MANAGER History: No Pertinent AQUATICS MANAGER History Family History Family History: Reviewed,noncontributory to illness, Unknown Social History Smoker: Non-Smoker Alcohol: Denies ETOH Use Drugs: Denies Drug Use Lives In: Home Constitutional: reports: weakness; denies: chills, diaphoresis, fatigue, fever, malaise, sweats, others EENTM: denies: blurred vision, double vision, ear bleeding, ear discharge, ear drainage, ear pain, ear ringing, eye pain, eye redness, hearing loss, mouth pain, mouth swelling, nasal discharge, nose bleeding, nose congestion, nose pain, photophobia, tearing, throat pain, throat swelling, voice changes, others Respiratory: denies: cough, hemoptysis, orthopnea, SOB at rest, shortness of breath, SOB with excertion, stridor, wheezing, others Cardiovascular: denies: chest pain, dizzy spells, diaphoresis, Dyspnea on exertion, edema, irregular heart beat, left arm pain, lightheadedness, palpitations, PND, syncope, others Gastrointestinal: reports: poor appetite; denies: abdomen distended, abdominal pain, blood streaked bowels, constipated, diarrhea, dysphagia, difficulty swallowing, hematemesis, melena, nausea, poor fluid intake, rectal bleeding, rectal pain, vomiting, others Genitourinary: denies: abnormal vagina bleeding, burning, dyspareunia, dysuria, flank pain, frequency, hematuria, incontinence, pain, , vagina discharge, urgency, others Neurological: denies: dizziness, fainting, headache, left sided numbness, left sided weakness, numbness, paresthesia, pre-existing deficit, right sided numbness, right sided weakness, seizure, speech problems, tingling, tremors, weakness, others Musculoskeletal: denies: back pain, gout, joint pain, joint swelling, muscle pa in, muscle stiffness, neck pain, others Integumetry: denies: bruises, change in color, change in hair/nails, dryness, laceration, lesions, lumps, rash, wounds, others Allergic/Immunocompromised: denies: Difficulty Healing, Frequent Infections, Hives, Itching, others Hematologic/Lymphatic: denies: anemia, blood clots, easy bleeding, easy bruising, swollen glands, others Endocrine: denies: excessive hunger, excessive sweating, excessive thirst, excessive urination, flushing, intolerance to cold, intolerance to heat, unexplained weight gain, unexplained weight loss, others Psychiatric: denies: anxiety, bipolar disorder, depression, hopeless, panic disorder, schizophrenia, sleepless, suicidal, others All Other Systems: Reviewed and Negative Physical Exam General Appearance: No Apparent Distress, Normal HEENT: Normal ENT Inspection, Pharynx Normal Neck: Full Range of Motion, Non-Tender, Normal, Normal Inspection Respiratory: Chest Non-Tender, Lungs Clear, No Accessory Muscle Use, No Respiratory Distress, Normal Breath Sounds Cardiovascular: No Edema, No Murmur, No Gallop, Normal Peripheral Pulses, Regular Rate/Rhythm Breast Exam: Deferred Gastrointestinal: No Organomegaly, Non Tender, No Pulsatile Mass, Normal Bowel Sounds, Soft Genitalia: Deferred Pelvic: Deferred Rectal: Deferred Extremities: No calf tenderness, Normal capillary refill, Normal inspection, Normal range of motion, Non-tender, No pedal edema Musculoskeletal : Apperance: Normal Neurologic: Alert, supervisor twisting department II-XII nml as Tested, No Motor Deficits, Normal Affect, Normal Mood, No Sensory Deficits Cerebellar Function: Normal Reflexes: Normal Skin: Dry, Normal Color, Warm Lymphatic: No Adenopathy Was a procedure done? Was a procedure done?: No Differential Dx Considerations may include: GENERALIZED WEAKNESS, HYPOTENSION, ELECTROLYTE IMBALANCE, SEPSIS X-Ray, Labs, Meds, VS Vital Signs Date Time Temp Pulse Resp B/P (MAP) Pulse Ox O2 Delivery O2 Flow Rate FiO2 04/29/25 14:00 98.0 100 21 94/63 (73) 97 98.0 04/29/25 14:00 100 1 94/63 (73) 91 04/29/25 14:00 94/63 04/29/25 13:45 86 25 102/70 (81) 97 04/29/25 13:44 20 93 Non-Rebreather 15 N/A 04/29/25 13:41 105/71 04/29/25 13:30 88 19 88/52 (64) 97 04/29/25 13:15 113/55 04/29/25 13:15 97.9 92 21 113/55 (74) 92 97.9 04/29/25 13:00 90 22 100/62 (75) 91 04/29/25 13:00 100/62 04/29/25 12:45 91 24 91/66 (74) 88 04/29/25 12:30 97 16 87/44 (58) 92 04/29/25 12:30 87/44 04/29/25 12:15 110 15 88/61 (70) 91 04/29/25 12:11 79/49 04/29/25 12:05 74/55 04/29/25 12:00 106 15 74/55 (61) 91 04/29/25 11:56 81/45 04/29/25 11:45 108 25 81/45 (57) 92 04/29/25 11:30 115 21 81/52 (62) 92 04/29/25 11:00 118 22 90/49 (63) 96 04/29/25 10:37 88 04/29/25 10:00 115 16 93/53 (66) 95 04/29/25 09:00 96.9 87 16 97/52 (67) 93 96.9 04/29/25 08:28 99 04/29/25 08:08 84 22 96 Nasal Cannula* 2 28 04/29/25 08:08 84 22 98/42 (60) 96 04/29/25 07:36 97.5 116 16 90/60 (70) 96 97.5 04/29/25 07:30 111 Lab Test 04/29/25 13:51 04/29/25 10:16 04/29/25 09:56 04/29/25 09:22 Range/Units POC Glucose 60 L 70-106 mg/dl Sodium Level 144 136-145 mmol/L Potassium Level 6.7 *H 3.5-5.1 mmol/L Chloride Level 113 H 98-107 mmol/L Carbon Dioxide Level 14 L 20-31 mmol/L Anion Gap 17 H 5-15 Blood Urea Nitrogen 41 H 9-23 mg/dL Creatinine 2.16 H 0.550-1.02 mg/dL Glomerular Filtration Rate Calc 22 >90 mL/min BUN/Creatinine Ratio 19.0 10.0-20.0 Serum Glucose 80 74-106 mg/dL Calcium Level 9.7 8.7-10.4 mg/dL Phosphorus Level 4.2 2.4-5.1 mg/dL Magnesium Level 2.8 H 1.6-2.6 mg/dL Lactic Acid Level 3.1 *H 0.4-2.0 mmol/L Urine Color Light-yellow Yellow Urine Clarity Clear Clear Urine pH 6.0 5.0-9.0 Urine Specific Ida 1.009 1.001-1.035 Urine Protein Negative Negative Urine Ketones Negative Negative Urine Blood Negative Negative /uL Urine Nitrite 1+ H Negative Urine Bilirubin Negative Negative Urine Urobilinogen Normal Negative mg/dL Urine Leukocyte Esterase 1+ Negative /uL Urine RBC 3 0 - 4 /hpf Urine Microscopic WBC 12 H 0-5 /HPF Urine Squamous Epithelial Cells Few <5 /hpf Urine Bacteria Few H None Seen /hpf Urine Glucose Normal Normal mg/dL Test 04/29/25 08:16 Range/Units White Blood Count 5.1 4.4-10.8 10^3/uL Red Blood Count 3.67 L 4.0-5.20 10^6/uL Hemoglobin 10.7 L 12.2-16.2 g/dL Hematocrit 33.7 L 36.0-46.0 % Mean Corpuscular Volume 92.0 80.0-100.0 fL Mean Corpuscular Hemoglobin 29.1 28.0-32.0 pg Mean Corpuscular Hemoglobin Concent 31.6 L 32.0-36.0 g/dL Red Cell Distribution Width 17.4 H 11.8-14.3 % Platelet Count 200 140-450 10^3/uL Mean Platelet Volume 8.5 6.9-10.8 fL Neutrophils (%) (Auto) 84.2 H 37.0-80.0 % Lymphocytes (%) (Auto) 9.5 L 10.0-50.0 % Monocytes (%) (Auto) 5.2 0.0-12.0 % Eosinophils (%) (Auto) 0.6 0.0-7.0 % Basophils (%) (Auto) 0.5 0.0-2.0 % Neutrophils # (Auto) 4.3 1.6-8.6 10 ^3/uL Lymphocytes # (Auto) 0.5 0.4-5.4 10 ^3/uL Monocytes # (Auto) 0.3 0-1.3 10 ^3/uL Eosinophils # (Auto) 0 0-0.8 10 ^3/uL Basophils # (Auto) 0 0-0.2 10 ^3/uL Nucleated Red Blood Cells 0.2 % Prothrombin Time 12.6 H 9.3-11.8 sec Prothrombin Time INR 1.21 H 0.9-1.15 Activated Partial Thromboplast Time 22.8 L 24.5-34.5 SEC Sodium Level 140 136-145 mmol/L Potassium Level 6.5 *H 3.5-5.1 mmol/L Chloride Level 111 H 98-107 mmol/L Carbon Dioxide Level 20 20-31 mmol/L Anion Gap 9 5-15 Blood Urea Nitrogen 39 H 9-23 mg/dL Creatinine 2.07 H 0.550-1.02 mg/dL Glomerular Filtration Rate Calc 23 >90 mL/min BUN/Creatinine Ratio 18.8 10.0-20.0 Serum Glucose 77 74-106 mg/dL Lactic Acid Level 2.2 *H 0.4-2.0 mmol/L Calcium Level 9.5 8.7-10.4 mg/dL Total Bilirubin 0.7 0.2-1.0 mg/dL Aspartate Amino Transferase (AST) 37 13-40 U/L Alanine Aminotransferase (ALT) < 9 7-40 U/L Alkaline Phosphatase 80 46-116 U/L Total Protein 6.5 5.7-8.2 g/dL Albumin 4.1 3.2-4.8 g/dL Current Medications Medications (Trade) Dose Ordered Sig/Love Route Start Time Stop Time Status Last Admin Lactated Ringer's 1,500 ml @ 1,500 mls/hr ONCE ONCE IV 04/29/25 07:45 04/29/25 08:44 DC 04/29/25 08:24 Vancomycin HCl 200 ml @ 200 mls/hr ONCE ONCE IV 04/29/25 07:45 04/29/25 08:44 DC 04/29/25 08:35 Calcium Gluconate/ Sodium Chloride 50 ml @ 100 mls/hr Q30M IV 04/29/25 09:30 04/29/25 10:29 DC 04/29/25 10:38 Acetaminophen (Ofirmev) 1,000 mg DAILY STAT IV 04/29/25 10:12 04/29/25 10:19 DC 04/29/25 10:38 Norepinephrine Bitartrate 250 ml @ 3.75 mls/hr Q24H IV 04/29/25 11:30 04/29/25 11:56 Sodium Bicarbonate 100 ml ONCE ONCE IV 04/29/25 13:30 04/29/25 13:31 DC 04/29/25 14:00 Dextrose 50 ml ONCE ONCE IV 04/29/25 13:30 04/29/25 13:31 DC 04/29/25 14:01 Insulin Human Regular (InsuLIN R) 10 units ONCE ONCE IV 04/29/25 13:30 04/29/25 13:32 DC 04/29/25 14:02 Dextrose 50 ml ONCE ONCE IV 04/29/25 13:30 04/29/25 13:32 DC 04/29/25 14:01 Albuterol (Ventolin Medneb) 20 mg ONCE ONCE NEB 04/29/25 13:30 04/29/25 13:32 DC 04/29/25 13:44 Zirconium Oxide (Lokelma) 10 gm ONCE ONCE PO 04/29/25 13:30 04/29/25 13:32 DC 04/29/25 14:[address] [address] Ph: [phone] DIAGNOSTIC IMAGING Diagnostic Imaging Report : [id number] Signed PATIENT: ELVA TARANGO JACCT: [id number] UNIT: [id number] : 1940 LOC: ER ROOM / BED: / AGE / SEX: 84 / F ADM STATUS: REG ER SERVICE 2 ORDERING PHYSICIAN: TAMIR CRAWFORD MD PROCEDURE(s): CXRP - CHEST PORTABLE REASON: weakness ORDER NUMBER(s): [id number], ACCESSION NUMBER(s): [id number] EXAM: XY CHEST PORTABLE HISTORY: weakness COMPARISON: XY CHEST PORTABLE on DOS: 01/13/25 TECHNIQUE: Portable upright AP view of the chest was performed. FINDINGS: There is diffuse interstitial prominence, slightly increased versus prior chest x-ray. There is increased right basilar infiltrate and effusion. There is improved left basilar infiltrate. There is a small left pleural effusion. No pneumothorax. The heart is enlarged. Left chest pacemaker is re-identified. The right humeral head is high-riding. IMPRESSION: 1. Cardiomegaly, increased interstitial prominence, and pleural effusions suggestive of worsening CHF. 2. Increased right basilar infiltrate and effusion may be due to atelectasis, scarring, and/or pneumonia. ATED BY: IRAJ JONES MD DICTATED DATE/TIME: 04/29/25835 SIGNED BY: IRAJ JONES MD SIGNED DATE/TIME: 04/29/25835 CC: Time of 1ST Reevaluation: 08:15 Reevaluation 1ST: Unchanged Patient Education/Counseling: Diagnosis, Treatment Family Education/Counseling: No Family Present SEPSIS Sepsis Screen Date sepsis recognized/suspect: Apr 29, 2025 Time Sepsis recognized/suspect: 722 Recent Procedure: No On Antibiotic Therapy: No Respiratory Rate >20: No Heart Rate >90: Yes Temp<36 C (96.8 F) or >38.3 C: No SBP <90 or MAP <65 mmHG: No New Acute Mental Status Change: No Is the patient on CPAP, BIPAP,: No Physician Orders Electrocardigram (04/29/25 07:33) Chest Portable (04/29/25 07:43) Accucheck (04/29/25 07:43) Blood Culture (04/29/25 07:43) Cefepime 1gm/ 50ml (Maxipime 1gm/50ml) (04/29/25 10:00) Notify Md If Map <65 Or Bp<90 (04/29/25 07:43) If Map<65 Start Vasopressor (04/29/25 07:43) Sepsis Reassesment After Fluid (04/29/25 08:43) Insert Lane Catheter QSHIFT (04/29/25 09:16) Urine Bacterial Culture (04/29/25 09:16) Norepinephrine 8 Mg/250ml Kit (Levophed) (04/29/25 11:30) Potassium (04/29/25 17:17) Electrocardigram (04/29/25 13:17) Vital Signs Date Time Temp Pulse Resp B/P (MAP) Pulse Ox O2 Delivery O2 Flow Rate FiO2 04/29/25 14:00 98.0 100 21 94/63 (73) 97 98.0 04/29/25 14:00 100 1 94/63 (73) 91 04/29/25 14:00 94/63 04/29/25 13:45 86 25 102/70 (81) 97 04/29/25 13:44 20 93 Non-Rebreather 15 N/A 04/29/25 13:41 105/71 04/29/25 13:30 88 19 88/52 (64) 97 04/29/25 13:15 113/55 04/29/25 13:15 97.9 92 21 113/55 (74) 92 97.9 04/29/25 13:00 90 22 100/62 (75) 91 04/29/25 13:00 100/62 04/29/25 12:45 91 24 91/66 (74) 88 04/29/25 12:30 97 16 87/44 (58) 92 04/29/25 12:30 87/44 04/29/25 12:15 110 15 88/61 (70) 91 04/29/25 12:11 79/49 04/29/25 12:05 74/55 04/29/25 12:00 106 15 74/55 (61) 91 04/29/25 11:56 81/45 04/29/25 11:45 108 25 81/45 (57) 92 04/29/25 11:30 115 21 81/52 (62) 92 04/29/25 11:00 118 22 90/49 (63) 96 7/10/25 10:37 88 04/29/25 10:00 115 16 93/53 (66) 95 04/29/25 09:00 96.9 87 16 97/52 (67) 93 96.9 04/29/25 08:28 99 04/29/25 08:08 84 22 96 Nasal Cannula* 2 28 04/29/25 08:08 84 22 98/42 (60) 96 04/29/25 07:36 97.5 116 16 90/60 (70) 96 97.5 04/29/25 07:30 111 Laboratory Tests Test 04/29/25 08:16 04/29/25 09:56 Lactic Acid Level 2.2 mmol/L (0.4-2.0) *H 3.1 mmol/L (0.4-2.0) *H White Blood Count 5.1 10^3/uL (4.4-10.8) Medications Medications Dose Ordered Sig/Love Route Start Time Stop Time Status Last Admin Dose Admin Acetaminophen 1,000 mg DAILY STAT IV 04/29/25 10:12 04/29/25 10:19 DC 04/29/25 10:38 Albuterol 20 mg ONCE ONCE NEB 04/29/25 13:30 04/29/25 13:32 DC 04/29/25 13:44 Calcium Gluconate/ Sodium Chloride 50 ml @ 100 mls/hr Q30M IV 04/29/25 09:30 04/29/25 10:29 DC 04/29/25 10:38 Dextrose 50 ml ONCE ONCE IV 04/29/25 13:30 04/29/25 13:31 DC 04/29/25 14:01 Dextrose 50 ml ONCE ONCE IV 04/29/25 13:30 04/29/25 13:32 DC 04/29/25 14:01 Insulin Human Regular 10 units ONCE ONCE IV 04/29/25 13:30 04/29/25 13:32 DC 04/29/25 14:02 Lactated Ringer's 1,500 ml @ 1,500 mls/hr ONCE ONCE IV 04/29/25 07:45 04/29/25 08:44 DC 04/29/25 08:24 Norepinephrine Bitartrate 250 ml @ 3.75 mls/hr Q24H IV 04/29/25 11:30 04/29/25 11:56 Sodium Bicarbonate 100 ml ONCE ONCE IV 04/29/25 13:30 04/29/25 13:31 DC 04/29/25 14:00 Vancomycin HCl 200 ml @ 200 mls/hr ONCE ONCE IV 04/29/25 07:45 04/29/25 08:44 DC 04/29/25 08:35 Zirconium Oxide 10 gm ONCE ONCE PO 04/29/25 13:30 04/29/25 13:32 DC 04/29/25 14:02 Departure 1 Departure Time of Disposition: 17:01 (Patient presenting with the acute overt sepsis. Patient was cover with antibiotics fluids. Patient wants to be DNR DNI and does not want a central line. We will admit patient for further workup and expert c onsultation) Impression: Primary Impression: Septic shock Additional Impressions: DNR (do not resuscitate) Hypoxic respiratory failure Qualified Codes: J96.01 - Acute respiratory failure with hypoxia Acute renal failure Qualified Codes: N17.9 - Acute kidney failure, unspecified Hyperkalemia Disposition: ADMITTED INPATIENT Admit to: Tele Condition: Critical Critical Care Note Critical Care Time?: Yes Critical care comment: Septic shock Authorized and Performed by: Tamir Crawford MD Total critical care time: Approximately 39 minutes Due to a high probability of clinically significant, life threatening deterioration, the patient required my highest level of preparedness to intervene emergently and I personally spent this critical care time directly and personally managing the patient. This critical care time included obtaining a history; examining the patient; pulse oximetry; ordering and review of studies; arranging urgent treatment with development of a management plan; evaluation of patient's response to treatment; frequent reassessment; and, discussions with other providers. This critical care time was performed to assess and manage the high probability of imminent, life-threatening deterioration that could result in multi-organ failure. It was exclusive of separately billable procedures and treating other patients and teaching time. Please see my other sections and the rest of the note for further information on patient assessment and treatment. Stability Stability form required: No Heart Score Heart Score: Heart Score Response (Comments) Value History N/A 0 EKG N/A 0 Age N/A 0 Risk Factors N/A 0 Troponin N/A 0 Total 0 I personally scribed for TAMIR CRAWFORD MD ([email or web address]) on 04/29/25 at 08:26. Electronically submitted by Talia Dos Santos ([email or web address]). I personally scribed for TAMIR CRAWFORD MD ([facility] on 04/29/25 at 08:27. Electronically submitted by Talia Dos Santos ([email or web address]). I personally scribed for TAMIR CRAWFORD MD ([facility] on 04/29/25 at 09:05. Electronically submitted by Talia Dos Santos ([email or web address]). I personally scribed for TAMIR CRAWFORD MD ([email or web address]) on 04/29/25 at 09:06. Electronically submitted by Talia Dos Santos ([email or web address]). TAMIR CRAWFORD MD Apr 29, 2025 08:26
[2025-04-29 08:32] LABS: Hematocrit 33.7 % (36.0-46.0); Hemoglobin 10.7 g/dL (12.2-16.2); Mean Corpuscular Hemoglobin 29.1 pg (28.0-32.0); Mean Corpuscular Volume 92.0 fL (80.0-100.0); Nucleated Red Blood Cells % 0.2 %
[2025-04-29] MEDS: VANCOMYCIN 1GM/200ML PM 200 ML IV ONE (08:35)
--- NOTE | 2025-04-29 08:39 | DVH ---
EXAM: XY CHEST PORTABLE HISTORY: weakness COMPARISON: XY CHEST PORTABLE on DOS: 01/13/25 TECHNIQUE: Portable upright AP view of the chest was performed. FINDINGS: There is diffuse interstitial prominence, slightly increased versus prior chest x-ray. There is incr eased right basilar infiltrate and effusion. There is improved left basilar infiltrate. There is a sm all left pleural effusion. No pneumothorax. The heart is enlarged. Left chest pacemaker is re-identi fied. The right humeral head is high-riding. IMPRESSION: 1. Cardiomegaly, increased interstitial prominence, and pleural effusions suggestive of worsening CHF . 2. Increased right basilar infiltrate and effusion may be due to atelectasis, scarring, and/or pneumo damir.
[2025-04-29 08:47] LABS: Albumin 4.1 g/dL (3.2-4.8); Alkaline Phosphatase 80 U/L (46-116); Anion Gap 9 (5-15); BUN/Creatinine Ratio 18.8 (10.0-20.0); Calcium 9.5 mg/dL (8.7-10.4); Glucose 77 mg/dL (74-106); Sodium 140 mmol/L (136-145); Total Protein 6.5 g/dL (5.7-8.2)
[2025-04-29 08:48] LABS: Bilirubin, Total 0.7 mg/dL (0.2-1.0)
[2025-04-29 08:49] LABS: INR 1.21 (0.9-1.15); Partial Thromboplastin Time 22.8 SEC (24.5-34.5); Prothrombin Time 12.6 sec (9.3-11.8)
[2025-04-29 08:51] LABS: Lactic Acid w/Reflex 2.2 mmol/L (0.4-2.0)
[2025-04-29 08:53] LABS: Alanine Aminotransferase < 9 U/L (7-40); Blood Urea Nitrogen 39 mg/dL (9-23); Carbon Dioxide 20 mmol/L (20-31); Chloride 111 mmol/L (98-107)
[2025-04-29 08:54] LABS: Potassium 6.5 mmol/L (3.5-5.1)
[2025-04-29 09:45] LABS: Urine Protein, UAD Negative (Negative)
[2025-04-29] MEDS: CALCIUM GLUC 1,000mg/50ml-NS 50 ML IV SCH (09:57)
[2025-04-29] MEDS ORDERED: CEFEPIME 1GM/ 50ML 50 ML IV SCH (10:00)
[2025-04-29] MEDS: ACETAMINOPHEN IV 1000 MG/100ML (10MG/ML) IV STA (10:38)
[2025-04-29 10:47] LABS: Magnesium 2.8 mg/dL (1.6-2.6)
[2025-04-29] MEDS: NOREPINEPHRINE 8 MG/250ML KIT 250 ML IV SCH (11:56)
[2025-04-29 12:57] LABS: Sodium 144 mmol/L (136-145)
[2025-04-29 12:58] LABS: Anion Gap 17 (5-15); Calcium 9.7 mg/dL (8.7-10.4)
[2025-04-29 13:03] LABS: BUN/Creatinine Ratio 19.0 (10.0-20.0); Glucose 80 mg/dL (74-106)
[2025-04-29 13:06] LABS: Blood Urea Nitrogen 41 mg/dL (9-23); Carbon Dioxide 14 mmol/L (20-31); Chloride 113 mmol/L (98-107)
[2025-04-29 13:07] LABS: Potassium 6.7 mmol/L (3.5-5.1)
[2025-04-29] MEDS: ALBUTEROL SULF 2.5 MG/0.5ML(0.5%) NEB SOLN NEB ONE (13:44)
[2025-04-29] MEDS: SODIUM BICARB 8.4% 50Meq/50ml SYR INJ IV ONE (13:56)
[2025-04-29] MEDS: InsuLIN REG 1unit/0.01ml Soln (100units/ml) IV ONE ×2 (13:59→14:02)
[2025-04-29] MEDS: SODIUM BICARB 8.4% 50Meq/50ml SYR Vial IV ONE (14:00)
[2025-04-29] MEDS: DEXTROSE (50%) 50ML SYRG IV ONE ×2 (14:01)
[2025-04-29] MEDS: SODIUM ZIRCONIUM CYCL 10 GM PAK PO ONE (14:02)
[2025-04-29] MEDS ORDERED: NITROGLYCERIN 0.4 MG SL TAB SL PRN (14:15)
[2025-04-29] MEDS ORDERED: MORPHINE SULFATE INJ 2 MG/ml SYRG IV PRN (14:15)
[2025-04-29] MEDS ORDERED: ONDANSETRON HCL 4 MG/2 ML VIAL IV PRN (14:15)
[2025-04-29] MEDS ORDERED: ACETAMINOPHEN 325 MG TAB PO PRN (14:15)
[2025-04-29] MEDS ORDERED: CLOP75TA70 PO (14:20)
[2025-04-29] MEDS ORDERED: LEVO100T8 PO (14:20)
[2025-04-29] MEDS ORDERED: AMIO400T7 PO (14:20)
[2025-04-29] MEDS ORDERED: FURO20TA4 PO (14:20)
[2025-04-29] MEDS ORDERED: MEMA1TAB5 PO (14:20)
--- NOTE | 2025-04-29 14:38 | DVHHP2 ---
History of Present Illness Reason for Visit: Generalized weakness History of Present Illness Stacie Padilla is an 84-year-old female with past medical history of hypertension, AFib, CHF, hypothyroidism, CVA with right-sided deficits, GERD, [place], pacemaker, appendectomy, hysterectomy, and tonsillectomy who presents to the ED with generalized weakness and poor appetite x3 days. Patient reports that she has been having these symptoms over the past several days and has been unable to walk. She reports that she lives alone. She denies any drug use, alcohol use, or tobacco use. Patient denies any chest pain, shortness of breath, fever, chills, lightheadedness, dizziness, abdominal pain, nausea vomiting, diarrhea, urinary symptoms, recent trauma or injury, recent sick contacts, recent ingestion of spoiled food, or recent travels. Patient reports that her sister lives in [place]. Also states her daughter lives in [place] and her son lives in [place]. She reports that she does not want to inform her children however is open to informing her sister. Phone number [phone]. Called patient's sister Delia and her Charissa and informed them of the patient's status including plan of care. 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 GI: GERD Endocrine: Hypothyroidism Past Surgical History: Appendectomy, Hysterectomy, Other (Pacemaker), Tonsille ctomy Family History: Other (Both parents ) Smoke: No ALCOHOL: none Drugs: None Lives: Alone Domestic Violence: Neg Review of Systems Constitutional: Yes: Weakness Allergies: Coded Allergies: Penicillins (Verified Allergy, Unknown, 02/08/16) Medications Current Medications Medications Dose Ordered Sig/Love Route Start Time Stop Time Status Last Admin Dose Admin Cefepime HCl 50 ml @ 12.5 mls/hr DAILY IV 04/29/25 10:00 Hold Norepinephrine Bitartrate 250 ml @ 3.75 mls/hr Q24H IV 04/29/25 11:30 04/29/25 11:56 3.75 MLS/HR Ondansetron HCl 4 mg Q4HP PRN IV 04/29/25 14:15 UNV Acetaminophen 650 mg Q6HP PRN PO 04/29/25 14:15 UNV Nitroglycerin 0.4 mg Q5MINP PRN SL 04/29/25 14:15 UNV Morphine Sulfate 2 mg Q30M PRN IV 04/29/25 14:15 UNV Ceftriaxone Sodium 50 ml @ 100 mls/hr DAILY@09 IV 04/29/25 14:15 UNV Pravastatin Sodium 80 mg DAILY PO 04/30/25 10:00 UNV Patient Own Medication 1 tab HS PO 04/29/25 22:00 UNV Patient Own Medication 4 mg EOD PO 05/01/25 10:00 UNV Furosemide 40 mg DAILY IV 04/30/25 10:00 UNV Exam Vital Signs Vital Signs Date Time Temp Pulse Resp B/P (MAP) Pulse Ox O2 Delivery O2 Flow Rate FiO2 04/29/25 13:44 20 93 Non-Rebreather 15 N/A 04/29/25 12:15 110 88/61 (70) 04/29/25 09:00 96.9 96.9 General Appearance: Alert, Oriented X3, Cooperative, mild distress HEENT: Atraumatic, PERRLA, EOMI Cardiovascular: Normal S1, Normal S2 Abdominal: Normal bowel sounds, Soft Extremities: No clubbing, No cyanosis, No edema Skin: No significant lesion Neuro: Normal speech, Normal tone, Sensation intact Psych/Mental Status: Mental status NL, Mood NL Labs/Xrays Labs Test 04/29/25 13:51 04/29/25 10:16 04/29/25 09:56 04/29/25 09:22 Range/Units POC Glucose 60 L 70-106 mg/dl Sodium Level 144 136-145 mmol/L Potassium Level 6.7 *H 3.5-5.1 mmol/L Chloride Level 113 H 98-107 mmol/L Carbon Dioxide Level 14 L 20-31 mmol/L Anion Gap 17 H 5-15 Blood Urea Nitrogen 41 H 9-23 mg/dL Creatinine 2.16 H 0.550-1.02 mg/dL Glomerular Filtration Rate Calc 22 >90 mL/min BUN/Creatinine Ratio 19.0 10.0-20.0 Serum Glucose 80 74-106 mg/dL Calcium Level 9.7 8.7-10.4 mg/dL Phosphorus Level 4.2 2.4-5.1 mg/dL Magnesium Level 2.8 H 1.6-2.6 mg/dL Lactic Acid Level 3.1 *H 0.4-2.0 mmol/L Urine Color Light-yellow Yellow Urine Clarity Clear Clear Urine pH 6.0 5.0-9.0 Urine Specific [place] 1.009 1.001-1.035 Urine Protein Negative Negative Urine Ketones Negative Negative Urine Blood Negative Negative /uL Urine Nitrite 1+ H Negative Urine Bilirubin Negative Negative Urine Urobilinogen Normal Negative mg/dL Urine Leukocyte Esterase 1+ Negative /uL Urine RBC 3 0 - 4 /hpf Urine Microscopic WBC 12 H 0-5 /HPF Urine Squamous Epithelial Cells Few <5 /hpf Urine Bacteria Few H None Seen /hpf Urine Glucose Normal Normal mg/dL Test 04/29/25 08:16 Range/Units White Blood Count 5.1 4.4-10.8 10^3/uL Red Blood Count 3.67 L 4.0-5.20 10^6/uL Hemoglobin 10.7 L 12.2-16.2 g/dL Hematocrit 33.7 L 36.0-46.0 % Mean Corpuscular Volume 92.0 80.0-100.0 fL Mean Corpuscular Hemoglobin 29.1 28.0-32.0 pg Mean Corpuscular Hemoglobin Concent 31.6 L 32.0-36.0 g/dL Red Cell Distribution Width 17.4 H 11.8-14.3 % Platelet Count 200 140-450 10^3/uL Mean Platelet Volume 8.5 6.9-10.8 fL Neutrophils (%) (Auto) 84.2 H 37.0-80.0 % Lymphocytes (%) (Auto) 9.5 L 10.0-50.0 % Monocytes (%) (Auto) 5.2 0.0-12.0 % Eosinophils (%) (Auto) 0.6 0.0-7.0 % Basophils (%) (Auto) 0.5 0.0-2.0 % Neutrophils # (Auto) 4.3 1.6-8.6 10 ^3/uL Lymphocytes # (Auto) 0.5 0.4-5.4 10 ^3/uL Monocytes # (Auto) 0.3 0-1.3 10 ^3/uL Eosinophils # (Auto) 0 0-0.8 10 ^3/uL Basophils # (Auto) 0 0-0.2 10 ^3/uL Nucleated Red Blood Cells 0.2 % Prothrombin Time 12.6 H 9.3-11.8 sec Prothrombin Time INR 1.21 H 0.9-1.15 Activated Partial Thromboplast Time 22.8 L 24.5-34.5 SEC Total Bilirubin 0.7 0.2-1.0 mg/dL Aspartate Amino Transferase (AST) 37 13-40 U/L Alanine Aminotransferase (ALT) < 9 7-40 U/L Alkaline Phosphatase 80 46-116 U/L Total Protein 6.5 5.7-8.2 g/dL Albumin 4.1 3.2-4.8 g/dL EXAM: XY CHEST PORTABLE HISTORY: weakness COMPARISON: XY CHEST PORTABLE on DOS: 01/13/25 TECHNIQUE: Portable upright AP view of the chest was performed. FINDINGS: There is diffuse interstitial prominence, slightly increased versus prior chest x-ray. There is increased right basilar infiltrate and effusion. There is improved left basilar infiltrate. There is a small left pleural effusion. No pneumothorax. The heart is enlarged. Left chest pacemaker is re-identified. The right humeral head is high-riding. IMPRESSION: 1. Cardiomegaly, increased interstitial prominence, and pleural effusions suggestive of worsening CHF. 2. Increased right basilar infiltrate and effusion may be due to atelectasis, scarring, and/or pneumonia. SEPSIS Sepsis Screen Date sepsis recognized/suspect: Apr 29, 2025 Time Sepsis recognized/suspect: 08 Recent Procedure: No On Antibiotic Therapy: No Respiratory Rate >20: Yes Heart Rate >90: No Temp<36 C (96.8 F) or >38.3 C: No SBP <90 or MAP <65 mmHG: Yes New Acute Mental Status Change: No Is the patient on CPAP, BIPAP,: No Physician Orders Electrocardigram (04/29/25 07:33) Chest Portable (04/29/25 07:43) Accucheck (04/29/25 07:43) Blood Culture (04/29/25 07:43) Cefepime 1gm/ 50ml (Maxipime 1gm/50ml) (04/29/25 10:00) Notify Md If Map <65 Or Bp<90 (04/29/25 07:43) If Map<65 Start Vasopressor (04/29/25 07:43) Sepsis Reassesment After Fluid (04/29/25 08:43) Insert Lane Catheter QSHIFT (04/29/25 09:16) Urine Bacterial Culture (04/29/25 09:16) Norepinephrine 8 Mg/250ml Kit (Levophed) (04/29/25 11:30) Potassium (04/29/25 17:17) Electrocardigram (04/29/25 13:17) Admit (04/29/25 14:06) Allergies (04/29/25 14:06) Code Status (04/29/25 14:06) Oxygen Per Hour (04/29/25 14:06) Ondansetron Hcl (Zofran) (04/29/25 14:15) Complete Blood Count (04/30/25 04:00) Comprehensive Metabolic Panel (04/30/25 04:00) Npo (Nothing By Mouth) Diet (04/29/25 Dinner) Acetaminophen Tablet (Tylenol Tablet) (04/29/25 14:15) Sequential Compression Device (04/29/25 ) Nitroglycerin Sublingual (Ntrostat Subli (04/29/25 14:15) Morphine Sulfate Injection (04/29/25 14:15) Stat Ekg For Chest Pain (04/29/25 14:06) Notify Md Of Changes From Base (04/29/25 14:06) Pulp Grinder Feeder For 24 Hours (04/29/25 14:06) Emergency Dysrhythmia Protocol (04/29/25 14:06) Rhythm Strips Once Every Shift (04/29/25 14:06) Oxygen By Nasal Cannula (04/29/25 14:06) Potassium (04/29/25 18:00) Ceftriaxone 1gm/50ml D5w (Rocephin) (04/29/25 14:15) Strict I & O QSHIFT (04/29/25 14:14) Daily Weight (04/29/25 14:14) Pravastatin Sodium Tablet (Pravachol Tab (04/30/25 10:00) (Nf) Carbidopa-Levodopa (Carbidopa/Levod (04/29/25 22:00) (Nf) Warfarin Sodium (05/01/25 10:00) Furosemide Injection (Lasix Injection) (04/30/25 10:00) Vital Signs Date Time Temp Pulse Resp B/P (MAP) Pulse Ox O2 Delivery O2 Flow Rate FiO2 04/29/25 13:44 20 93 Non-Rebreather 15 N/A 04/29/25 12:15 110 15 88/61 (70) 91 04/29/25 12:11 79/49 04/29/25 12:05 74/55 04/29/25 12:00 106 15 74/55 (61) 91 04/29/25 11:56 81/45 04/29/25 11:45 108 25 81/45 (57) 92 04/29/25 11:30 115 21 81/52 (62) 92 04/29/25 11:00 118 22 90/49 (63) 96 04/29/25 10:37 88 04/29/25 10:00 115 16 93/53 (66) 95 04/29/25 09:00 96.9 87 16 97/52 (67) 93 96.9 04/29/25 08:28 99 04/29/25 08:08 84 22 96 Nasal Cannula* 2 28 04/29/25 08:08 84 22 98/42 (60) 96 04/29/25 07:36 97.5 116 16 90/60 (70) 96 97.5 04/29/25 07:30 111 Laboratory Tests Test 04/29/25 08:16 04/29/25 09:56 Lactic Acid Level 2.2 mmol/L (0.4-2.0) *H 3.1 mmol/L (0.4-2.0) *H White Blood Count 5.1 10^3/uL (4.4-10.8) Medications Medications Dose Ordered Sig/Love Route Start Time Stop Time Status Last Admin Dose Admin Acetaminophen 1,000 mg DAILY STAT IV 04/29/25 10:12 04/29/25 10:19 DC 04/29/25 10:38 1,000 MG Albuterol 20 mg ONCE ONCE NEB 04/29/25 13:30 04/29/25 13:32 DC 04/29/25 13:44 20 MG Calcium Gluconate/ Sodium Chloride 50 ml @ 100 mls/hr Q30M IV 04/29/25 09:30 04/29/25 10:29 DC 04/29/25 10:38 100 MLS/HR Dextrose 50 ml ONCE ONCE IV 04/29/25 13:30 04/29/25 13:31 DC 04/29/25 14:01 50 ML Dextrose 50 ml ONCE ONCE IV 04/29/25 13:30 04/29/25 13:32 DC 04/29/25 14:01 50 ML Insulin Human Regular 10 units ONCE ONCE IV 04/29/25 13:30 04/29/25 13:32 DC 04/29/25 14:02 10 UNITS Lactated Ringer's 1,500 ml @ 1,500 mls/hr ONCE ONCE IV 04/29/25 07:45 04/29/25 08:44 DC 04/29/25 08:24 1,500 MLS/HR Norepinephrine Bitartrate 250 ml @ 3.75 mls/hr Q24H IV 04/29/25 11:30 04/29/25 11:56 3.75 MLS/HR Sodium Bicarbonate 100 ml ONCE ONCE IV 04/29/25 13:30 04/29/25 13:31 DC 04/29/25 14:00 100 ML Vancomycin HCl 200 ml @ 200 mls/hr ONCE ONCE IV 04/29/25 07:45 04/29/25 08:44 DC 04/29/25 08:35 200 MLS/HR Zirconium Oxide 10 gm ONCE ONCE PO 04/29/25 13:30 04/29/25 13:32 DC 04/29/25 14:02 10 GM Assessment/Plan Assessment/Plan Assessment Generalized weakness likely due to UTI Hyperkalemia Anemia Probable pneumonia Lactic acidosis likely due to sepsis EDY likely due to sepsis Acute on chronic CHF exacerbation Acute hypoxic respiratory failure requiring mechanical ventilation History of hypertension History of AFib History of hypothyroidism History of CVA with right-sided deficits History of GERD History of [place] History of appendectomy History of hysterectomy History of pacemaker History of tonsillectomy Plan Admit to ICU On BiPAP IV antibiotics-ceftriaxone Strict I&Os Daily weights ED gave vancomycin plus cefepime Hyperkalemia protocol Phos level Mag level Urine bacterial culture EKG Chest x-ray noted UA PT/PTT Blood culture Lactic level NPO DVT prophylaxis-patient on Plavix and warfarin PUD prophylaxis-PPIs Discussed plan of care with patient and nurse Patient DNR/DNI status [id number] Advanced care planning discussed [id number] Preventive counseling healthy eating habits, physical activity, and regular checkups Plan discussed with: Patient My Orders Orders - BETHANY FELIX MANAGED CARE MANAGER Procedure Category Date Status Time Potassium LAB 04/29/25 Logged 17:17 Electrocardigram EKG 04/29/25 Logged 13:17 Admit ADMIT 04/29/25 Transmitted 14:06 Allergies NOE 04/29/25 In Process 14:06 Code Status CODE 04/29/25 Transmitted 14:06 Oxygen Per Hour RT 04/29/25 Transmitted 14:06 Ondansetron Hcl [facility] 04/29/25 Logged (Zofran) 14:15 Complete Blood Count LAB 04/30/25 Verified 04:00 Comprehensive LAB 04/30/25 Verified Metabolic Panel 04:00 Npo (Nothing By DIET 04/29/25 Transmitted Mouth) Diet Dinner Acetaminophen Tablet [facility] 04/29/25 Logged (Tylenol Tablet) 14:15 Sequential NOE 04/29/25 In Process Compression Device Nitroglycerin [facility] 04/29/25 Logged Sublingual (Ntrostat 14:15 Morphine Sulfate [facility] 04/29/25 Logged Injection 14:15 Stat Ekg For Chest [facility] 04/29/25 In Process Pain 14:06 Notify Md Of Changes [facility] 04/29/25 In Process From Base 14:06 Pulp Grinder Feeder For [facility] 04/29/25 In Process 24 Hours 14:06 Emergency Dysrhythmia [facility] 04/29/25 In Process Protocol 14:06 Rhythm Strips Once [facility] 04/29/25 In Process Every Shift 14:06 Oxygen By Nasal RT 04/29/25 Transmitted Cannula 14:06 Potassium LAB 04/29/25 Logged 18:00 Ceftriaxone 1gm/50ml [facility] 04/29/25 Logged D5w (Rocephin) 14:15 Strict I & O [facility] 04/29/25 In Process 14:14 Daily Weight [facility] 04/29/25 In Process 14:14 Pravastatin Sodium [facility] 04/30/25 Logged Tablet (Pravachol Tab 10:00 (NF) [facility] 04/29/25 Logged Carbidopa-Levodopa 22:00 (Nf) Warfarin Sodium [facility] 05/01/25 Logged 10:00 Furosemide Injection [facility] 04/30/25 Logged (Lasix Injection) 10:00 Date of Service: Apr 29, 2025 Billing Provider: BETHANY FELIX Common Visit Codes: [id number] INP/OBS CARE (HIGH) Secondary Visit Codes: [id number] COUNSELING IND, [id number] CARE PLAN 30 MINUTES BETHANY FLEIX Apr 29, 2025 14:38
[2025-04-29] MEDS: cefTRIAXone 1GM/50ML D5W 50 ML IV SCH (15:15)
--- NOTE | 2025-04-29 18:23 | DVH ---
BILATERAL Lower Extremity Arterial Duplex Date: 04/29/2025 05:16 PM Clinical History: Pain Comparison: None Technique: Duplex Doppler evaluation including color Doppler and spectral/pulsed waveform analysis of the lower extremity arteries was performed. Finding: LEFT: Peak systolic velocities are as follows: Axillary artery: 47.9 m/sec Proximal brachial artery: 74.9 m/sec Mid brachial artery: 116.2 m/sec Distal brachial artery: 65.1 m/sec Radial artery: 26.2 m/sec Ulnar artery: 41.1 m The waveforms are BIPHASIC FLOW NOTED IN RADIAL ARTERY. IMPRESSION: 1. BIPHASIC FLOW IN THE LEFT RADIAL ARTERY
[2025-04-29 18:53] LABS: Lactic Acid w/Reflex 2.9 mmol/L (0.4-2.0)
[2025-04-29] MEDS: CARBIDOPA PO SCH (22:00)
[2025-04-29] MEDS: LEVODOPA PO SCH (22:00)
[2025-04-29] MEDS: NITROGLYCERIN 2% OINT 1GM PKG TD ONE (22:33)
[2025-04-30] VITALS (95 sets, daily range): BP systolic 82–140; BP diastolic 24–106; PULSE 79–160; RESP 13–23; TEMP 97.5–99.3; O2SAT 73–100
--- NOTE | 2025-04-30 07:12 | ECG ---
[facility] Test Date: 2025-04-29 Test Time: 07:30:24 Pat Name: ELVA MYLES [place] Department: ED Room: 0262D Gender: F Nurse General Duty: LIBERTAD : 1940 Requested By: TAMIR CRAWFORD Order Number: [id number] Reading MD: Scott Jefferson Measurements Intervals [place] Rate: 111 P: 0 CO: 0 QRS: -86 QRSD: 254 T: 99 QT: 468 QTc: 636 Interpretive Statements Ventricular-paced complexes No further rhythm analysis attempted due to paced rhythm Nonspecific IVCD with LAD LVH with secondary repolarization abnormality Electronically Signed On 05-03-2025 18:29:04 PDT by Scott Jefferson Please click the below link to view image of tracing.
--- NOTE | 2025-04-30 07:12 | ECG ---
[facility] Test Date: 2025-04-29 Test Time: 08:28:54 [facility] Department: er Room: 0262D Gender: F Historian Dramatic Arts: romie : 1940 Requested By: BETHANY FELIX Order Number: [id number] Reading MD: Scott Jefferson Measurements Intervals [place] Rate: 99 P: 0 [place]: 162 QRS: -84 QRSD: 243 T: 96 QT: 496 QTc: 637 Interpretive Statements A-V dual-paced rhythm with some inhibition No further analysis attempted due to paced rhythm Electronically Signed On 05-03-2025 18:29:17 PDT by Scott Jefferson Please click the below link to view image of tracing.
[2025-04-30 09:12] LABS: Hematocrit 30.0 % (36.0-46.0); Hemoglobin 9.4 g/dL (12.2-16.2); Mean Corpuscular Hemoglobin 29.2 pg (28.0-32.0); Mean Corpuscular Volume 92.8 fL (80.0-100.0); Nucleated Red Blood Cells % 0.2 %
[2025-04-30 09:33] LABS: Alanine Aminotransferase 10 U/L (7-40); Albumin 3.4 g/dL (3.2-4.8); Alkaline Phosphatase 70 U/L (46-116); Anion Gap 9 (5-15); BUN/Creatinine Ratio 21.6 (10.0-20.0); Bilirubin, Total 1.2 mg/dL (0.2-1.0); Calcium 8.9 mg/dL (8.7-10.4); Carbon Dioxide 24 mmol/L (20-31); Glucose 97 mg/dL (74-106); Potassium 4.4 mmol/L (3.5-5.1); Sodium 141 mmol/L (136-145)
[2025-04-30 09:37] LABS: Blood Urea Nitrogen 32 mg/dL (9-23); Chloride 108 mmol/L (98-107); Total Protein 5.4 g/dL (5.7-8.2)
[2025-04-30] MEDS ORDERED: FUROSEMIDE 40 MG/4 ML VIAL IV SCH (10:00)
[2025-04-30] MEDS: CLOPIDOGREL BISULFATE 75 MG TAB PO SCH (10:24)
[2025-04-30] MEDS: PRAVASTATIN SODIUM 20 MG TAB PO SCH (10:24)
[2025-04-30] MEDS: ACETAMINOPHEN 650 mg PER 20.3 mL UD PO PRN (10:51)
[2025-04-30] MEDS ORDERED: MEGE20TA3 PO (11:09)
[2025-04-30] MEDS ORDERED: BACL10TA PO (11:09)
[2025-04-30] MEDS ORDERED: CYCL-839 PO (11:09)
[2025-04-30] MEDS ORDERED: PRAM3.75 PO (11:09)
[2025-04-30] MEDS ORDERED: GABA-1308 PO (11:09)
[2025-04-30] MEDS: NOREPINEPHRINE 8 MG/250ML KIT 250 ML IV SCH (12:15)
--- NOTE | 2025-04-30 12:40 | DVH ---
LEFT Upper Extremity Venous Duplex Clinical History: LUE SWELLING Comparison: None Technique: Duplex Doppler evaluation of the venous system of the LEFT lower neck and upper extremity including color Doppler and spectral/pulsed waveform analysis was performed. Findings: The internal jugular vein demonstrates appropriate compressibility and waveform variability. The subclavian vein is patent on color Doppler evaluation without intraluminal thrombus and demonstra ritika waveform variability. The visualized portion of the brachiocephalic vein is patent on color Doppler evaluation without intr aluminal thrombus and demonstrates waveform variability. The axillary vein demonstrates nonocclusive thrombus. Thrombus is present in the cephalic vein, brachial vein, basilic vein, radial vein and ulnar vein. Impression: The axillary vein demonstrates nonocclusive thrombus. Thrombus is present in the cephalic vein, brachial vein, basilic vein, radial vein and ulnar vein. Critical Result: DVT Findings discussed with RN in Y[facility]IS at 04/30/2025 12:39 PM, and acknowledged receipt and understanding of the findings.
[2025-04-30] MEDS: ENOXAPARIN SOD 60 MG/0.6 ML SYRINGE SC ONE (13:47)
[2025-04-30] MEDS: FUROSEMIDE 40 MG TAB PO SCH (13:48)
[2025-04-30] MEDS: LIDOCAINE 1% (LOCAL ANESTH.) PF 5ml SDV ID ONE (17:56)
--- NOTE | 2025-04-30 18:23 | DVH ---
CHEST RADIOGRAPH Indication: PICC LINE PLACEMENT. Technique: Single frontal view of the chest was obtained Comparison: XY CHEST PORTABLE on DOS: 04/29/25, XY CHEST PORTABLE on DOS: 01/13/25 FINDINGS: Lines and Tubes: Pick right arm in place in the superior vena cava above the right atrium. Dual-chamb er pacemaker in place with pulse generator over the left chest. Lungs: Increased density in the right lower lung field extending to the hilum. Recommend CT chest wit h contrast to help distinguish infiltrate from mass. Pleura: No effusion. No pneumothorax. Cardiomediastinal contours: Unremarkable Bones: No acute osseous abnormality. IMPRESSION: 1. PICC line from right arm in the superior vena cava above the right atrium. 2. Increased density in the right lung base. May represent elevated diaphragm increasing airspace dis ease or mass. Recommend CT of the chest if possible with contrast.
--- NOTE | 2025-04-30 18:27 | DVHPN2 ---
Subjective Patient's symptoms are improving. Generalized weakness is improving. Denies any urine symptoms at this time Reviewed: H&P Changes from previous H/P or p: No Changes General: Per HPI Objective Vitals Vital Signs Date Time Temp Pulse Resp B/P (MAP) Pulse Ox O2 Delivery O2 Flow Rate FiO2 04/30/25 16:30 79 13 111/58 (75) 92 04/30/25 16:00 Oxymizer 8 N/A 04/30/25 16:00 99.3 99.3 Intake/Output Intake and Output 04/30/25 07:00 Intake Total 1941.25 ml Output Total 750 ml Balance 1191.25 ml Intake Oral 250 ml IV Total 1691.25 ml Output Urine Total 750 ml Exam GEN: Healthy appearing, well-developed, NAD. HEENT: NC/AT; MMM. CV: RRR, no m/r/g. LUNGS: CTAB, no w/r/c. ABD: Soft, NT/ND, NBS, no masses or organomegaly. EXT: skin Warm, well perfused. no rashes. No clubbing, cyanosis, or edema. Left upper extremity swollen edematous. Pulses present bilaterally all extremities warm. NEURO: Ambulating with no limitations. No focal deficits. Medications Current Medications Medications Dose Ordered Sig/Love Route Start Time Stop Time Status Last Admin Dose Admin Cefepime HCl 50 ml @ 12.5 mls/hr DAILY IV 04/29/25 10:00 Hold Ondansetron HCl 4 mg Q4HP PRN IV 04/29/25 14:15 Nitroglycerin 0.4 mg Q5MINP PRN SL 04/29/25 14:15 Morphine Sulfate 2 mg Q30M PRN IV 04/29/25 14:15 Ceftriaxone Sodium 50 ml @ 100 mls/hr DAILY@09 IV 04/29/25 14:15 04/30/25 17:54 100 MLS/HR Pravastatin Sodium 80 mg DAILY PO 04/30/25 10:00 04/30/25 10:24 80 MG Patient Own Medication 4 mg EOD PO 05/01/25 10:00 UNV Warfarin Sodium RX PROTOCOL PER PHARMACY PO 04/29/25 15:15 Cancel Clopidogrel Bisulfate 75 mg DAILY PO 04/30/25 10:00 04/30/25 10:24 75 MG Acetaminophen 650 mg Q6HP PRN PO 04/30/25 10:30 04/30/25 10:51 650 MG Furosemide 40 mg DAILY PO 04/30/25 11:45 04/30/25 13:48 40 MG Norepinephrine Bitartrate 250 ml @ 3.75 mls/hr Q24H IV 04/30/25 12:15 04/30/25 12:15 5.625 MLS/HR Enoxaparin Sodium 40 mg DAILY SC 05/01/25 10:00 UNV Enoxaparin Sodium 50 mg DAILY SC 05/01/25 10:00 Carbidopa/Levodopa 1 tab HS PO 04/30/25 22:00 Sodium Chloride 10 ml QSHIFT@10,22 IV 04/30/25 22:00 Laboratory Results Laboratory Tests 04/30/25 08:54 Chemistry Test 04/30/25 08:54 Albumin 3.4 g/dL (3.2-4.8) Calcium Level 8.9 mg/dL (8.7-10.4) Total Protein 5.4 g/dL (5.7-8.2) L LFT Test 04/30/25 08:54 Alanine Aminotransferase (ALT) 10 U/L (7-40) Alkaline Phosphatase 70 U/L (46-116) Aspartate Amino Transferase (AST) 26 U/L (13-40) Total Bilirubin 1.2 mg/dL (0.2-1.0) H Urinalysis Test 04/29/25 09:22 Urine Color Light-yellow (Yellow) Urine Clarity Clear (Clear) Urine pH 6.0 (5.0-9.0) Urine Specific [place] 1.009 (1.001-1.035) Urine Protein Negative (Negative) Urine Ketones Negative (Negative) Urine Blood Negative /uL (Negative) Urine Nitrite 1+ (Negative) H Urine Bilirubin Negative (Negative) Urine Urobilinogen Normal mg/dL (Negative) Urine Leukocyte Esterase 1+ /uL (Negative) Urine RBC 3 /hpf (0 - 4) Urine Microscopic WBC 12 /HPF (0-5) H Urine Squamous Epithelial Cells Few /hpf (<5) Urine Bacteria Few /hpf (None Seen) H Urine Glucose Normal mg/dL (Normal) Microbiology Microbiology Date/Time Source Procedure Growth Status 04/29/25 16:40 Nose MRSA Screen - Final Complete 04/29/25 09:23 Urine - Lane [place] Urine Culture - Preliminary Resulted 04/29/25 08:16 Blood Blood Culture - Preliminary NO GROWTH AFTER 24 HOURS OF INCUBATION. Resulted Labs and/or images reviewed: Labs reviewed by me, Image(s) reviewed by me Assessment/Plan Assessment/Plan History of Present Illness Stacie Padilla is an 84-year-old female with past medical history of hypertension, AFib, CHF, hypothyroidism, CVA with right-sided deficits, GERD, PR, pacemaker, appendectomy, hysterectomy, and tonsillectomy who presents to the ED with generalized weakness and poor appetite x3 days. Patient reports that she has been having these symptoms over the past several days and has been unable to walk. She reports that she lives alone. She denies any drug use, alcohol use, or tobacco use. Patient denies any chest pain, shortness of breath, fever, chills, lightheadedness, dizziness, abdominal pain, nausea vomiting, diarrhea, urinary symptoms, recent trauma or injury, recent sick contacts, recent ingestion of spoiled food, or recent travels. Patient reports that her sister lives in [place]. Also states her daughter lives in [place] and her son lives in [place]. She reports that she does not want to inform her children however is open to informing her sister. Phone number [phone]. Called patient's sister Delia and her Charissa and informed them of the patient's status including plan of care. 04/30- last night patient had multiple IVs on left arm at least 1 infusing Levophed vasopressor. Thereafter patient lost pulse on right radial. Arterial ultrasound was negative for any arterial thrombus. IVs were removed and instead started on the right hand. Today DVT ultrasound showing multiple small superficial vein thrombosis. Lovenox 40 subQ daily started. No need for full dose anticoagulation with no. We will have to escalate antibiotics from ceftriaxone to meropenem/doxycycline. Continue to monitor lactic acidosis. 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 Patient agrees to PICC line and she is on vasopressors. Patient was given options of central CvC versus PICC line. Sepsis with septic shock, due to below Acute complicated UTI, Shock requiring vasopressor support Hyperkalemia Anemia, normocytic Probable pneumonia, Gram-negative Gram-positive possible Lactic acidosis likely due to sepsis Neutrophilia Tachycardia Tachypnea EDY likely due to sepsis Acute on chronic CHF exacerbation Acute hypoxic respiratory failure requiring mechanical ventilation History of hypertension History of AFib History of hypothyroidism History of CVA with right-sided deficits History of GERD History of PR History of appendectomy History of hysterectomy History of pacemaker History of tonsillectomy -Prn pain control -Nightly Sinemet for restless legs syndrome -Ceftriaxone change to meropenem/doxycycline -Continue home meds Plavix, Lasix p.o., pravastatin, -Levophed maintain map > 65 -Consult Dr. APARICIO -Surgical consult -PICC line Diet mechanical soft DVT prophylaxis-Lovenox subQ daily GI prophylaxis-Protonix IV 40 daily ICU Full code Plan discussed with: Patient My Orders Orders - KAYLYNN AGUILAR MD Procedure Category Date Status Time Insert Midline ORDERS 04/30/25 Transmitted 09:23 Acetaminophen PHA 04/30/25 In Process Solution Oral 10:30 * Cardiology Consult CONS 04/30/25 Transmitted 11:10 Furosemide Tablet PHA 04/30/25 In Process (Lasix Tablet) 11:45 Lt Upper Dvt US 04/30/25 Resulted 11:39 Norepinephrine 8 PHA 04/30/25 In Process Mg/250ml Kit 12:15 Enoxaparin Sodium PHA 05/01/25 In Process (Lovenox) 10:00 Carbidopa W Levodopa PHA 04/30/25 In Process 25/100mg (Sinemet 2 22:00 Us Guided Vascular US 04/30/25 Logged Access 17:11 Nursing Protocol Picc NOE 04/30/25 In Process 17:11 Change Dressing Prn NOE 04/30/25 In Process 17:11 PICC BD 04/30/25 Transmitted 17:11 Sodium Chloride Lock PHA 04/30/25 In Process (Saline Lock Ns) 22:00 Do Not Use Picc For NOE 04/30/25 In Process Blood Cult 17:11 May Draw Blood From NOE 04/30/25 In Process Picc 17:11 Chest Portable XY 04/30/25 Taken 17:11 Ok To Use Picc NOE 04/30/25 In Process 17:11 Change Picc Dressing NOE 04/30/25 In Process Q7 Days 17:11 Date of Service: Apr 30, 2025 Billing Provider: KAYLYNN AGUILAR MD Common Visit Codes: [id number] CARE 30-74 MIN KAYLYNN AGUILAR MD Apr 30, 2025 18:27
[2025-04-30] MEDS: CARBIDOPA W LEVODOPA 25/100mg TABLET PO SCH (20:17)
[2025-04-30] MEDS: SODIUM CHLOR 0.9% PF (SALINE LOCK) 10ML VIAL/SYR IV SCH (20:17)
[2025-05-01] VITALS (102 sets, daily range): BP systolic 85–241; BP diastolic 11–206; PULSE 77–115; RESP 14–28; TEMP 97.3–98.2; O2SAT 82–100
[2025-05-01] MEDS: BACLOFEN 10 MG TAB PO ONE (02:07)
[2025-05-01] MEDS: ENOXAPARIN SOD 60 MG/0.6 ML SYRINGE SC SCH (08:04)
[2025-05-01 09:30] LABS: Hematocrit 29.8 % (36.0-46.0); Hemoglobin 9.7 g/dL (12.2-16.2); Mean Corpuscular Hemoglobin 29.6 pg (28.0-32.0); Mean Corpuscular Volume 90.7 fL (80.0-100.0); Nucleated Red Blood Cells % 0.2 %
[2025-05-01 09:51] LABS: Albumin 3.5 g/dL (3.2-4.8); Alkaline Phosphatase 76 U/L (46-116); Anion Gap 9 (5-15); BUN/Creatinine Ratio 20.3 (10.0-20.0); Bilirubin, Total 0.6 mg/dL (0.2-1.0); Calcium 8.8 mg/dL (8.7-10.4); Carbon Dioxide 26 mmol/L (20-31); Chloride 105 mmol/L (98-107); Glucose 101 mg/dL (74-106); Magnesium 1.9 mg/dL (1.6-2.6); Potassium 3.7 mmol/L (3.5-5.1); Sodium 140 mmol/L (136-145)
[2025-05-01 09:53] LABS: Alanine Aminotransferase < 9 U/L (7-40); Blood Urea Nitrogen 27 mg/dL (9-23); Total Protein 5.6 g/dL (5.7-8.2)
[2025-05-01] MEDS ORDERED: ENOXAPARIN SOD 40 MG/0.4 ML SYRINGE SC SCH (10:00)
[2025-05-01] MEDS ORDERED: WARFARIN SODIUM 4 MG PO SCH (10:00)
--- NOTE | 2025-05-01 10:59 | DVHPN2 ---
Subjective Patient's symptoms are improving. Generalized weakness is improving. Denies any urine symptoms at this time Reviewed: H&P Changes from previous H/P or p: No Changes General: Per HPI Objective Vitals Vital Signs Date Time Temp Pulse Resp B/P (MAP) Pulse Ox O2 Delivery O2 Flow Rate FiO2 05/01/25 10:00 79 17 125/52 (76) 98 05/01/25 10:00 Oxymizer 6 N/A 05/01/25 08:00 98.1 98.1 Intake/Output Intake and Output 05/01/25 07:00 Intake Total 1786.050 ml Output Total 1100 ml Balance 686.050 ml Intake Oral 1380 ml IV Total 406.050 ml Output Urine Total 1100 ml Exam GEN: Healthy appearing, well-developed, NAD. HEENT: NC/AT; MMM. CV: RRR, no m/r/g. LUNGS: CTAB, no w/r/c. ABD: Soft, NT/ND, NBS, no masses or organomegaly. EXT: skin Warm, well perfused. no rashes. No clubbing, cyanosis, or edema. Left upper extremity swollen edematous. Pulses present bilaterally all extremities warm. NEURO: Ambulating with no limitations. No focal deficits. Medications Current Medications Medications Dose Ordered Sig/Love Route Start Time Stop Time Status Last Admin Dose Admin Cefepime HCl 50 ml @ 12.5 mls/hr DAILY IV 04/29/25 10:00 Hold Ondansetron HCl 4 mg Q4HP PRN IV 04/29/25 14:15 Nitroglycerin 0.4 mg Q5MINP PRN SL 04/29/25 14:15 Morphine Sulfate 2 mg Q30M PRN IV 04/29/25 14:15 Ceftriaxone Sodium 50 ml @ 100 mls/hr DAILY@09 IV 04/29/25 14:15 05/01/25 08:02 100 MLS/HR Pravastatin Sodium 80 mg DAILY PO 04/30/25 10:00 05/01/25 08:04 80 MG Patient Own Medication 4 mg EOD PO 05/01/25 10:00 UNV Warfarin Sodium RX PROTOCOL PER PHARMACY PO 04/29/25 15:15 Cancel Clopidogrel Bisulfate 75 mg DAILY PO 04/30/25 10:00 05/01/25 08:04 75 MG Acetaminophen 650 mg Q6HP PRN PO 04/30/25 10:30 05/01/25 02:07 650 MG Furosemide 40 mg DAILY PO 04/30/25 11:45 05/01/25 08:04 40 MG Norepinephrine Bitartrate 250 ml @ 3.75 mls/hr Q24H IV 04/30/25 12:15 05/01/25 03:46 9.375 MLS/HR Enoxaparin Sodium 40 mg DAILY SC 05/01/25 10:00 UNV Enoxaparin Sodium 50 mg DAILY SC 05/01/25 10:00 05/01/25 08:04 50 MG Carbidopa/Levodopa 1 tab HS PO 04/30/25 22:00 04/30/25 20:17 1 TAB Sodium Chloride 10 ml QSHIFT@10,22 IV 04/30/25 22:00 05/01/25 07:52 10 ML Laboratory Results Laboratory Tests 05/01/25 09:08 Chemistry Test 05/01/25 09:08 Albumin 3.5 g/dL (3.2-4.8) Calcium Level 8.8 mg/dL (8.7-10.4) Magnesium Level 1.9 mg/dL (1.6-2.6) Total Protein 5.6 g/dL (5.7-8.2) L LFT Test 05/01/25 09:08 Alanine Aminotransferase (ALT) < 9 U/L (7-40) Alkaline Phosphatase 76 U/L (46-116) Aspartate Amino Transferase (AST) 24 U/L (13-40) Total Bilirubin 0.6 mg/dL (0.2-1.0) Urinalysis Test 04/29/25 09:22 Urine Color Light-yellow (Yellow) Urine Clarity Clear (Clear) Urine pH 6.0 (5.0-9.0) Urine Specific [place] 1.009 (1.001-1.035) Urine Protein Negative (Negative) Urine Ketones Negative (Negative) Urine Blood Negative /uL (Negative) Urine Nitrite 1+ (Negative) H Urine Bilirubin Negative (Negative) Urine Urobilinogen Normal mg/dL (Negative) Urine Leukocyte Esterase 1+ /uL (Negative) Urine RBC 3 /hpf (0 - 4) Urine Microscopic WBC 12 /HPF (0-5) H Urine Squamous Epithelial Cells Few /hpf (<5) Urine Bacteria Few /hpf (None Seen) H Urine Glucose Normal mg/dL (Normal) Microbiology Microbiology Date/Time Source Procedure Growth Status 04/29/25 16:40 Nose MRSA Screen - Final Complete 04/29/25 09:23 Urine - Lane [place] Urine Culture - Preliminary Resulted 04/29/25 08:16 Blood Blood Culture - Preliminary NO GROWTH AFTER 48 HOURS OF INCUBATION. Resulted Labs and/or images reviewed: Labs reviewed by me, Image(s) reviewed by me Assessment/Plan Assessment/Plan History of Present Illness Stacie Padilla is an 84-year-old female with past medical history of hypertension, AFib, CHF, hypothyroidism, CVA with right-sided deficits, GERD, CT, pacemaker, appendectomy, hysterectomy, and tonsillectomy who presents to the ED with generalized weakness and poor appetite x3 days. Patient reports that she has been having these symptoms over the past several days and has been unable to walk. She reports that she lives alone. She denies any drug use, alcohol use, or tobacco use. Patient denies any chest pain, shortness of breath, fever, chills, lightheadedness, dizziness, abdominal pain, nausea vomiting, diarrhea, urinary symptoms, recent trauma or injury, recent sick contacts, recent ingestion of spoiled food, or recent travels. Patient reports that her sister lives in [place]. Also states her daughter lives in [place] and her son lives in [place]. She reports that she does not want to inform her children however is open to informing her sister. Phone number [phone]. Called patient's sister Delia and her Charissa and informed them of the patient's status including plan of care. 04/30- last night patient had multiple IVs on left arm at least 1 infusing Levophed vasopressor. Thereafter patient lost pulse on right radial. Arterial ultrasound was negative for any arterial thrombus. IVs were removed and instead started on the right hand. Today DVT ultrasound showing multiple small superficial vein thrombosis. Lovenox 40 subQ daily started. No need for full dose anticoagulation with no. We will have to escalate antibiotics from ceftriaxone to meropenem/doxycycline. Continue to monitor lactic acidosis. 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 Patient agrees to PICC line and she is on vasopressors. Patient was given options of central CvC versus PICC line. 05/01-left arm is looking improved, edema has significantly improved. Yesterday ultrasound left arm for DVT study which showed multiple superficial vein thrombosis. We have Lovenox 40 DVT prophylaxis and Plavix home med. Pulses present x4. We are weaning down oxygen, she is on home oxygen. Still on Levophed we will do some bolus trials of 250 cc to see if able to wean off. Otherwise continue treatment for UTI. Continue broad-spectrum antibiotics. We will give fluid bolus and repeat lactic. Antibiotics meropenem/doxycycline. Stop Rocephin. Diagnosis: Sepsis with septic shock, due to below Acute complicated UTI, Shock requiring vasopressor support Hyperkalemia Anemia, normocytic Probable pneumonia, Gram-negative Gram-positive possible Lactic acidosis likely due to sepsis Neutrophilia Tachycardia Tachypnea EDY likely due to sepsis Acute on chronic CHF exacerbation Acute hypoxic respiratory failure requiring mechanical ventilation History of hypertension History of AFib History of hypothyroidism History of CVA with right-sided deficits History of GERD History of CT History of appendectomy History of hysterectomy History of pacemaker History of tonsillectomy Plan: -Prn pain control -Nightly Sinemet for restless legs syndrome -Ceftriaxone change to meropenem/doxycycline -Continue home meds Plavix, Lasix p.o., pravastatin, -Levophed maintain map > [address] -Consult Dr. smith -[facility] Surgical consult was done but issue was resolving. -PICC line Diet mechanical soft DVT prophylaxis-Lovenox subQ daily GI prophylaxis-Protonix IV 40 daily ICU Full code Plan discussed with: Patient My Orders Orders - KAYLYNN AGUILAR MD Procedure Category Date Status Time * Cardiology Consult CONS 04/30/25 Transmitted 11:10 Furosemide Tablet PHA 04/30/25 In Process (Lasix Tablet) 11:45 Lt Upper Dvt US 04/30/25 Resulted 11:39 Norepinephrine 8 PHA 04/30/25 In Process Mg/250ml Kit 12:15 Enoxaparin Sodium PHA 05/01/25 In Process (Lovenox) 10:00 Carbidopa W Levodopa PHA 04/30/25 In Process 25/100mg (Sinemet 2 22:00 Nursing Protocol Picc NOE 04/30/25 In Process 17:11 Change Dressing Prn NOE 04/30/25 In Process 17:11 PICC BD 04/30/25 Transmitted 17:11 Sodium Chloride Lock PHA 04/30/25 In Process (Saline Lock Ns) 22:00 Do Not Use Picc For [facility] 04/30/25 In Process Blood Cult 17:11 May Draw Blood From [facility] 04/30/25 In Process Picc 17:11 Chest Portable XY 04/30/25 Resulted 17:11 Ok To Use Picc [facility] 04/30/25 In Process 17:11 Change Picc Dressing [facility] 04/30/25 In Process Q7 Days 17:11 Date of Service: May 01, 2025 Billing Provider: KAYLYNN AGUILAR MD Common Visit Codes: [id number] CARE 30-74 MIN KAYLYNN AGUILAR MD May 01, 2025 10:59
[2025-05-01] MEDS: DOXYCYCLINE 100MG/100ML 100 ML IV SCH (11:00)
[2025-05-01] MEDS ORDERED: ALPRAZolam 0.25 MG TAB PO PRN (11:00)
[2025-05-01] MEDS: MEROPENEM 2GM/ 250ML 250 ML IV SCH (14:00)
[2025-05-01] MEDS: MILK OF MAGNESIA 30ML SUSP PO ONE (22:53)
[2025-05-02] VITALS (97 sets, daily range): BP systolic 85–148; BP diastolic 11–79; PULSE 78–98; RESP 13–26; TEMP 96.9–98.2; O2SAT 0–100
[2025-05-02] MEDS: BACLOFEN 10 MG TAB PO PRN (04:48)
[2025-05-02] MEDS: HYDROcodone-ACET 5/325MG TAB PO PRN (04:49)
[2025-05-02 05:42] LABS: Hematocrit 28.6 % (36.0-46.0); Hemoglobin 9.2 g/dL (12.2-16.2); Mean Corpuscular Hemoglobin 29.3 pg (28.0-32.0); Mean Corpuscular Volume 91.5 fL (80.0-100.0); Nucleated Red Blood Cells % 0.0 %
[2025-05-02 05:58] LABS: Albumin 3.2 g/dL (3.2-4.8); Alkaline Phosphatase 70 U/L (46-116); Anion Gap 7 (5-15); BUN/Creatinine Ratio 18.7 (10.0-20.0); Blood Urea Nitrogen 20 mg/dL (9-23); Calcium 8.8 mg/dL (8.7-10.4); Carbon Dioxide 28 mmol/L (20-31); Chloride 106 mmol/L (98-107); Glucose 88 mg/dL (74-106); Magnesium 2.0 mg/dL (1.6-2.6); Potassium 4.1 mmol/L (3.5-5.1); Sodium 141 mmol/L (136-145)
[2025-05-02 05:59] LABS: Bilirubin, Total 0.6 mg/dL (0.2-1.0)
[2025-05-02 06:11] LABS: Alanine Aminotransferase < 9 U/L (7-40); Total Protein 5.3 g/dL (5.7-8.2)
[2025-05-02] MEDS: PANTOPRAZOLE 40 MG/10 ML VIAL INJ IV SCH (09:31)
[2025-05-02] MEDS: POLYETHYLENE GLYCOL 17 GM PWDR PO SCH (09:36)
--- NOTE | 2025-05-02 11:11 | DVHPN2 ---
Subjective Patient's symptoms are improving. Generalized weakness is improving. Denies any urine symptoms at this time Reviewed: H&P Changes from previous H/P or p: No Changes General: Per HPI Objective Vitals Vital Signs Date Time Temp Pulse Resp B/P (MAP) Pulse Ox O2 Delivery O2 Flow Rate FiO2 05/02/25 10:00 79 05/02/25 10:00 16 99 Simple Mask* 6 50 05/02/25 09:31 112/41 05/02/25 08:00 98.2 98.2 Intake/Output Intake and Output 05/02/25 07:00 Intake Total 972.500 ml Output Total 2250 ml Balance -1277.500 ml Intake Oral 520 ml IV Total 452.500 ml Output Urine Total 2250 ml Exam GEN: Healthy appearing, well-developed, NAD. HEENT: NC/AT; MMM. CV: RRR, no m/r/g. LUNGS: CTAB, no w/r/c. ABD: Soft, NT/ND, NBS, no masses or organomegaly. EXT: skin Warm, well perfused. no rashes. No clubbing, cyanosis, or edema. Left upper extremity improved. Pulses present bilaterally all extremities warm. NEURO: Ambulating with no limitations. No focal deficits. Medications Current Medications Medications Dose Ordered Sig/Love Route Start Time Stop Time Status Last Admin Dose Admin Ondansetron HCl 4 mg Q4HP PRN IV 04/29/25 14:15 Nitroglycerin 0.4 mg Q5MINP PRN SL 04/29/25 14:15 Morphine Sulfate 2 mg Q30M PRN IV 04/29/25 14:15 Pravastatin Sodium 80 mg DAILY PO 04/30/25 10:00 05/02/25 09:27 80 MG Patient Own Medication 4 mg EOD PO 05/01/25 10:00 UNV Warfarin Sodium RX PROTOCOL PER PHARMACY PO 04/29/25 15:15 Cancel Clopidogrel Bisulfate 75 mg DAILY PO 04/30/25 10:00 05/02/25 09:27 75 MG Acetaminophen 650 mg Q6HP PRN PO 04/30/25 10:30 05/01/25 02:07 650 MG Furosemide 40 mg DAILY PO 04/30/25 11:45 05/02/25 09:31 40 MG Norepinephrine Bitartrate 250 ml @ 3.75 mls/hr Q24H IV 04/30/25 12:15 05/02/25 06:06 1.875 MLS/HR Enoxaparin Sodium 40 mg DAILY SC 05/01/25 10:00 UNV Enoxaparin Sodium 50 mg DAILY SC 05/01/25 10:00 05/02/25 09:36 50 MG Carbidopa/Levodopa 1 tab HS PO 04/30/25 22:00 05/01/25 22:52 1 TAB Sodium Chloride 10 ml QSHIFT@10,22 IV 04/30/25 22:00 05/02/25 09:31 10 ML Meropenem 250 ml @ 83.3 mls/hr Q8HR IV 05/01/25 14:00 05/02/25 05:54 83.3 MLS/HR Acetaminophen/ Hydrocodone Bitart 1 tab Q8HPRN PRN PO 05/01/25 11:00 05/02/25 04:49 1 TAB Baclofen 10 mg Q12HP PRN PO 05/01/25 22:00 05/02/25 04:48 10 MG Polyethylene Glycol 17 gm DAILY PO 05/02/25 10:00 05/02/25 09:36 17 GM Alprazolam 0.25 mg Q8HP PRN PO 05/01/25 11:00 Pantoprazole Sodium 40 mg DAILY IV 05/02/25 10:00 05/02/25 09:31 40 MG Doxycycline Hyclate 100 ml @ 50 mls/hr Q12H IV 05/02/25 14:00 Laboratory Results Laboratory Tests 05/02/25 04:47 Chemistry Test 05/02/25 04:47 Albumin 3.2 g/dL (3.2-4.8) Calcium Level 8.8 mg/dL (8.7-10.4) Magnesium Level 2.0 mg/dL (1.6-2.6) Total Protein 5.3 g/dL (5.7-8.2) L LFT Test 05/02/25 04:47 Alanine Aminotransferase (ALT) < 9 U/L (7-40) Alkaline Phosphatase 70 U/L (46-116) Aspartate Amino Transferase (AST) 22 U/L (13-40) Total Bilirubin 0.6 mg/dL (0.2-1.0) Urinalysis Test 04/29/25 09:22 Urine Color Light-yellow (Yellow) Urine Clarity Clear (Clear) Urine pH 6.0 (5.0-9.0) Urine Specific [place] 1.009 (1.001-1.035) Urine Protein Negative (Negative) Urine Ketones Negative (Negative) Urine Blood Negative /uL (Negative) Urine Nitrite 1+ (Negative) H Urine Bilirubin Negative (Negative) Urine Urobilinogen Normal mg/dL (Negative) Urine Leukocyte Esterase 1+ /uL (Negative) Urine RBC 3 /hpf (0 - 4) Urine Microscopic WBC 12 /HPF (0-5) H Urine Squamous Epithelial Cells Few /hpf (<5) Urine Bacteria Few /hpf (None Seen) H Urine Glucose Normal mg/dL (Normal) Microbiology Microbiology Date/Time Source Procedure Growth Status 04/29/25 16:40 Nose MRSA Screen - Final Complete 04/29/25 09:23 Urine - [place] Urine Culture - Final Escherichia coli Complete 04/29/25 08:16 Blood Blood Culture - Preliminary NO GROWTH AFTER 72 HOURS OF INCUBATION. Resulted Labs and/or images reviewed: Labs reviewed by me, Image(s) reviewed by me Assessment/Plan Assessment/Plan History of Present Illness Stacie Padilla is an 84-year-old female with past medical history of hypertension, AFib, CHF, hypothyroidism, CVA with right-sided deficits, GERD, [place], pacemaker, appendectomy, hysterectomy, and tonsillectomy who presents to the ED with generalized weakness and poor appetite x3 days. Patient reports that she has been having these symptoms over the past several days and has been unable to walk. She reports that she lives alone. She denies any drug use, alcohol use, or tobacco use. Patient denies any chest pain, shortness of breath, fever, chills, lightheadedness, dizziness, abdominal pain, nausea vomiting, diarrhea, urinary symptoms, recent trauma or injury, recent sick contacts, recent ingestion of spoiled food, or recent travels. Patient reports that her sister lives in [place]. Also states her daughter lives in [place] and her son lives in [place]. She reports that she does not want to inform her children however is open to informing her sister. Phone number [phone]. Called patient's sister Delia and her Charissa and informed them of the patient's status including plan of care. 04/30- last night patient had multiple IVs on left arm at least 1 infusing Levophed vasopressor. Thereafter patient lost pulse on right radial. Arterial ultrasound was negative for any arterial thrombus. IVs were removed and instead started on the right hand. Today DVT ultrasound showing multiple small superficial vein thrombosis. Lovenox 40 subQ daily started. No need for full dose anticoagulation with no. We will have to escalate antibiotics from ceftriaxone to meropenem/doxycycline. Continue to monitor lactic acidosis. 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 Patient agrees to PICC line and she is on vasopressors. Patient was given options of central CvC versus PICC line. 05/01-left arm is looking improved, edema has significantly improved. Yesterday ultrasound left arm for DVT study which showed multiple superficial vein thrombosis. We have Lovenox 40 DVT prophylaxis and Plavix home med. Pulses present x4. We are weaning down oxygen, she is on home oxygen. Still on Levophed we will do some bolus trials of 250 cc to see if able to wean off. Otherwise continue treatment for UTI. Continue broad-spectrum antibiotics. We will give fluid bolus and repeat lactic. Antibiotics meropenem/doxycycline. Stop Rocephin. 05/02--left arm continues to improve. Good pulses. Unable to wean off Levophed. We will start septic steroids, midodrine 10 t.i.d. in 500 cc over 5 hours. Urine output 12 hour is 450. Adequate. Continuing broad-spectrum antibiotics meropenem/doxycycline. Urine culture with E coli with multiple sensitivities but patient is still in shock we will continue broad-spectrum. Continuing Lovenox 40 subQ daily. Lactic acidosis is resolving. She is having abdominal pain no bowel movements. We will given loop magnesia, today giving MiraLax. Patient says I am miserable , we will try enema, KUB today. Complaining of dry nose and/or be is on, RT we will evaluate if continue tophi and/or be to maintain oxygen > 90. RT okay to try EzPAP if they seem patient good candidate. Diagnosis: Sepsis with septic shock, due to below Acute complicated UTI, Shock requiring vasopressor support Hyperkalemia Anemia, normocytic Probable pneumonia, Gram-negative Gram-positive possible Lactic acidosis likely due to sepsis Neutrophilia Tachycardia Tachypnea EDY likely due to sepsis Acute on chronic CHF exacerbation Acute hypoxic respiratory failure requiring mechanical ventilation History of hypertension History of AFib History of hypothyroidism History of CVA with right-sided deficits History of GERD History of [place] History of appendectomy History of hysterectomy History of pacemaker History of tonsillectomy Plan: -Prn pain control -Nightly Sinemet for restless legs syndrome -Ceftriaxone change to meropenem/doxycycline -Continue home meds Plavix, Lasix p.o., pravastatin, -Levophed maintain map > 65 -Consult Dr. smith -[facility] Surgical consult was done but issue was resolving. -PICC line Diet mechanical soft DVT prophylaxis-Lovenox subQ daily GI prophylaxis-Protonix IV 40 daily ICU Full code Plan discussed with: Patient My Orders Orders - KAYLYNN AGUILAR MD Procedure Category Date Status Time Doxycycline PHA 05/02/25 In Process 100mg/100ml 14:00 Date of Service: May 02, 2025 Billing Provider: KAYLYNN AGUILAR MD Common Visit Codes: [id number] CARE 30-74 MIN KAYLYNN AGUILAR MD May 02, 2025 11:11
[2025-05-02] MEDS: SODIUM CHLORIDE 0.9% 1,000 ML IV SCH (11:15)
[2025-05-02] MEDS: MIDODRINE HCL 10 MG TAB PO SCH (12:13)
[2025-05-02] MEDS: FLEET ENEMA(ADULT) 135 ML PR ONE (12:13)
[2025-05-02] MEDS: DOXYCYCLINE 100MG/100ML 100 ML IV SCH (13:16)
--- NOTE | 2025-05-02 14:15 | DVH ---
Date: 05/02/2025 12:52 PM Examination: XY KUB ABDOMEN SINGLE VIEW History: ABD PAIN Comparison: None TECHNIQUE: Frontal views of the abdomen was obtained. FINDINGS: Bowel gas pattern is unremarkable. The lung bases are unremarkable. No acute osseous abnormality identified. IMPRESSION: 1. Nonobstructive bowel gas pattern.
[2025-05-02] MEDS: HYDROCORTISONE SOD SUCC 100 MG/2ML INJ VIAL IV SCH (20:47)
[2025-05-02] MEDS: IPRATROPIUM BROM 0.5 MG/2.5ML INH SOL NEB PRN (20:52)
[2025-05-03] VITALS (57 sets, daily range): BP systolic 91–170; BP diastolic 14–69; PULSE 72–115; RESP 10–23; TEMP 97.9–98.9; O2SAT 0–100
[2025-05-03] MEDS: MEROPENEM 2GM/ 250ML 250 ML IV SCH (01:04)
[2025-05-03 04:06] LABS: Hematocrit 26.3 % (36.0-46.0); Hemoglobin 8.5 g/dL (12.2-16.2); Mean Corpuscular Hemoglobin 29.8 pg (28.0-32.0); Mean Corpuscular Volume 92.0 fL (80.0-100.0); Nucleated Red Blood Cells % 0.0 %
[2025-05-03 04:20] LABS: Alkaline Phosphatase 67 U/L (46-116); Anion Gap 8 (5-15); BUN/Creatinine Ratio 17.7 (10.0-20.0); Blood Urea Nitrogen 14 mg/dL (9-23); Carbon Dioxide 24 mmol/L (20-31); Potassium 3.9 mmol/L (3.5-5.1); Sodium 144 mmol/L (136-145)
[2025-05-03 04:21] LABS: Bilirubin, Total 0.4 mg/dL (0.2-1.0)
[2025-05-03 04:37] LABS: Alanine Aminotransferase < 9 U/L (7-40); Albumin 2.6 g/dL (3.2-4.8); Calcium 6.9 mg/dL (8.7-10.4); Chloride 112 mmol/L (98-107); Glucose 137 mg/dL (74-106); Total Protein 4.5 g/dL (5.7-8.2)
--- NOTE | 2025-05-03 04:46 | DVH ---
CHEST RADIOGRAPH Indication: FOLLOW UP Technique: Single frontal view of the chest was obtained Comparison: XY CHEST PORTABLE on DOS: 04/30/25 FINDINGS: Lines and Tubes: Right PICC terminates in the superior vena cava. Dual-chamber pacemaker with right a trial and ventricular leads. Lungs: Bilateral airspace disease. Pleura: Bilateral pleural effusions. No pneumothorax. Cardiomediastinal contours: Stable Cardiovascular silhouette. Bones: No acute osseous abnormality. IMPRESSION: 1. Bilateral pleural effusions and diffuse bilateral airspace disease. Findings similar to prior [facility] radiograph from 04/30/2025.
--- NOTE | 2025-05-03 09:51 | DVHPN2 ---
Subjective Patient's symptoms are improving. Generalized weakness is improving. Denies any urine symptoms at this time Reviewed: H&P Changes from previous H/P or p: No Changes General: Per HPI Objective Vitals Vital Signs Date Time Temp Pulse Resp B/P (MAP) Pulse Ox O2 Delivery O2 Flow Rate FiO2 05/03/25 09:17 147/43 05/03/25 06:45 81 15 97 05/03/25 06:11 Nasal Cannula 2.0 05/03/25 06:11 28 05/03/25 04:00 98.1 98.1 Intake/Output Intake and Output 05/03/25 07:00 Intake Total 2025.000 ml Output Total 900 ml Balance 1125.000 ml Intake Oral 1410 ml IV Total 615.000 ml Output Urine Total 900 ml # Bowel Movements 3 Exam GEN: Healthy appearing, well-developed, NAD. HEENT: NC/AT; MMM. CV: RRR, no m/r/g. LUNGS: CTAB, no w/r/c. ABD: Soft, NT/ND, NBS, no masses or organomegaly. EXT: skin Warm, well perfused. no rashes. No clubbing, cyanosis, or edema. Left upper extremity improved. Pulses present bilaterally all extremities warm. NEURO: Ambulating with no limitations. No focal deficits. Medications Current Medications Medications Dose Ordered Sig/Love Route Start Time Stop Time Status Last Admin Dose Admin Ondansetron HCl 4 mg Q4HP PRN IV 04/29/25 14:15 Nitroglycerin 0.4 mg Q5MINP PRN SL 04/29/25 14:15 Morphine Sulfate 2 mg Q30M PRN IV 04/29/25 14:15 Pravastatin Sodium 80 mg DAILY PO 04/30/25 10:00 05/03/25 09:18 80 MG Patient Own Medication 4 mg EOD PO 05/01/25 10:00 UNV Warfarin Sodium RX PROTOCOL PER PHARMACY PO 04/29/25 15:15 Cancel Clopidogrel Bisulfate 75 mg DAILY PO 04/30/25 10:00 05/03/25 09:17 75 MG Acetaminophen 650 mg Q6HP PRN PO 04/30/25 10:30 05/01/25 02:07 650 MG Furosemide 40 mg DAILY PO 04/30/25 11:45 05/03/25 09:17 40 MG Norepinephrine Bitartrate 250 ml @ 3.75 mls/hr Q24H IV 04/30/25 12:15 05/02/25 06:06 1.875 MLS/HR Enoxaparin Sodium 40 mg DAILY SC 05/01/25 10:00 UNV Enoxaparin Sodium 50 mg DAILY SC 05/01/25 10:00 05/03/25 09:18 50 MG Carbidopa/Levodopa 1 tab HS PO 04/30/25 22:00 05/02/25 20:47 1 TAB Sodium Chloride 10 ml QSHIFT@10,22 IV 04/30/25 22:00 05/03/25 09:16 10 ML Acetaminophen/ Hydrocodone Bitart 1 tab Q8HPRN PRN PO 05/01/25 11:00 05/02/25 04:49 1 TAB Baclofen 10 mg Q12HP PRN PO 05/01/25 22:00 05/02/25 04:48 10 MG Polyethylene Glycol 17 gm DAILY PO 05/02/25 10:00 05/03/25 09:17 17 GM Alprazolam 0.25 mg Q8HP PRN PO 05/01/25 11:00 Pantoprazole Sodium 40 mg DAILY IV 05/02/25 10:00 05/03/25 09:16 40 MG Doxycycline Hyclate 100 ml @ 50 mls/hr Q12H IV 05/02/25 14:00 05/03/25 01:04 50 MLS/HR Hydrocortisone Sodium Succinate 50 mg Q12HR IV 05/02/25 22:00 05/07/25 21:59 05/03/25 09:17 50 MG Midodrine 10 mg TID@0600,1200,1800 PO 05/02/25 12:00 05/03/25 05:48 10 MG Ipratropium [place] 0.5 mg Q6HPRN PRN NEB 05/02/25 11:15 05/02/25 20:52 0.5 MG Meropenem 250 ml @ 83.3 mls/hr Q12H IV 05/03/25 02:00 05/03/25 01:04 83.3 MLS/HR Laboratory Results Laboratory Tests 05/03/25 03:30 Chemistry Test 05/03/25 03:30 Albumin 2.6 g/dL (3.2-4.8) L Calcium Level 6.9 mg/dL (8.7-10.4) L Total Protein 4.5 g/dL (5.7-8.2) L LFT Test 05/03/25 03:30 Alanine Aminotransferase (ALT) < 9 U/L (7-40) Alkaline Phosphatase 67 U/L (46-116) Aspartate Amino Transferase (AST) 21 U/L (13-40) Total Bilirubin 0.4 mg/dL (0.2-1.0) Urinalysis Test 04/29/25 09:22 Urine Color Light-yellow (Yellow) Urine Clarity Clear (Clear) Urine pH 6.0 (5.0-9.0) Urine Specific [place] 1.009 (1.001-1.035) Urine Protein Negative (Negative) Urine Ketones Negative (Negative) Urine Blood Negative /uL (Negative) Urine Nitrite 1+ (Negative) H Urine Bilirubin Negative (Negative) Urine Urobilinogen Normal mg/dL (Negative) Urine Leukocyte Esterase 1+ /uL (Negative) Urine RBC 3 /hpf (0 - 4) Urine Microscopic WBC 12 /HPF (0-5) H Urine Squamous Epithelial Cells Few /hpf (<5) Urine Bacteria Few /hpf (None Seen) H Urine Glucose Normal mg/dL (Normal) Microbiology Microbiology Date/Time Source Procedure Growth Status 04/29/25 16:40 Nose MRSA Screen - Final Complete 04/29/25 09:23 Urine - Lane [place] Urine Culture - Final Escherichia coli Complete 04/29/25 08:16 Blood Blood Culture - Preliminary NO GROWTH AFTER 72 HOURS OF INCUBATION. Resulted Labs and/or images reviewed: Labs reviewed by me, Image(s) reviewed by me Assessment/Plan Assessment/Plan History of Present Illness Stacie Padilla is an 84-year-old female with past medical history of hypertension, AFib, CHF, hypothyroidism, CVA with right-sided deficits, GERD, [place], pacemaker, appendectomy, hysterectomy, and tonsillectomy who presents to the ED with generalized weakness and poor appetite x3 days. Patient reports that she has been having these symptoms over the past several days and has been unable to walk. She reports that she lives alone. She denies any drug use, alcohol use, or tobacco use. Patient denies any chest pain, shortness of breath, fever, chills, lightheadedness, dizziness, abdominal pain, nausea vomiting, diarrhea, urinary symptoms, recent trauma or injury, recent sick contacts, recent ingestion of spoiled food, or recent travels. Patient reports that her sister lives in [place]. Also states her daughter lives in [place] and her son lives in [place]. She reports that she does not want to inform her children however is open to informing her sister. Phone number [phone]. Called patient's sister Delia and her Charissa and informed them of the patient's status including plan of care. 04/30- last night patient had multiple IVs on left arm at least 1 infusing Levophed vasopressor. Thereafter patient lost pulse on right radial. Arterial ultrasound was negative for any arterial thrombus. IVs were removed and instead started on the right hand. Today DVT ultrasound showing multiple small superficial vein thrombosis. Lovenox 40 subQ daily started. No need for full dose anticoagulation with no. We will have to escalate antibiotics from ceftriaxone to meropenem/doxycycline. Continue to monitor lactic acidosis. 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 Patient agrees to PICC line and she is on vasopressors. Patient was given options of central CvC versus PICC line. 05/01-left arm is looking improved, edema has significantly improved. Yesterday ultrasound left arm for DVT study which showed multiple superficial vein thrombosis. We have Lovenox 40 DVT prophylaxis and Plavix home med. Pulses present x4. We are weaning down oxygen, she is on home oxygen. Still on Levophed we will do some bolus trials of 250 cc to see if able to wean off. Otherwise continue treatment for UTI. Continue broad-spectrum antibiotics. We will give fluid bolus and repeat lactic. Antibiotics meropenem/doxycycline. Stop Rocephin. 05/02--left arm continues to improve. Good pulses. Unable to wean off Levophed. We will start septic steroids, midodrine 10 t.i.d. in 500 cc over 5 hours. Urine output 12 hour is 450. Adequate. Continuing broad-spectrum antibiotics meropenem/doxycycline. Urine culture with E coli with multiple sensitivities but patient is still in shock we will continue broad-spectrum. Continuing Lovenox 40 subQ daily. Lactic acidosis is resolving. She is having abdominal pain no bowel movements. We will given loop magnesia, today giving MiraLax. Patient says I am miserable , we will try enema, KUB today. Complaining of dry nose and/or be is on, RT we will evaluate if continue tophi and/or be to maintain oxygen > 90. RT okay to try EzPAP if they seem patient good candidate. 05/03 measures from yesterday appear to be improving patient's condition. Patient is weaned off of Levophed. She is on continued hydrocortisone injections and monitoring p.o. t.i.d.. Feeling better. Left and continues to look good. She has Doppler pulses lower extremities bilaterally. Wheezing today we will continue giving prn ipratropium. Urine output adequate. Continuing IV antibiotics. Maps more than 75. Continuing constipation bowel regimen. We will deescalate care to D OU and monitor another 24 hours. Start PT. Diagnosis: Sepsis with septic shock, due to below Acute complicated UTI, Shock requiring vasopressor support Hyperkalemia Anemia, normocytic Probable pneumonia, Gram-negative Gram-positive possible Lactic acidosis likely due to sepsis Neutrophilia Tachycardia Tachypnea EDY likely due to sepsis Acute on chronic CHF exacerbation Acute hypoxic respiratory failure requiring mechanical ventilation History of hypertension History of AFib History of hypothyroidism History of CVA with right-sided deficits History of GERD History of [place] History of appendectomy History of hysterectomy History of pacemaker History of tonsillectomy Plan: -Prn pain control -Nightly Sinemet for restless legs syndrome -Ceftriaxone change to meropenem/doxycycline -Continue home meds Plavix, Lasix p.o., pravastatin, -Levophed maintain map > 65 -Cons[facility] Surgical consult was done but issue was resolving. -PICC line Diet mechanical soft DVT prophylaxis-Lovenox subQ daily GI prophylaxis-Protonix IV 40 daily ICU Full code Plan discussed with: Patient, Other My Orders Orders - KAYLYNN AGUILAR MD Procedure Category Date Status Time Hydrocortisone PHA 05/02/25 In Process Succinate Inj 22:00 Midodrine Tablet PHA 05/02/25 In Process (Proamatine Tablet) 12:00 Ipratropium [place] PHA 05/02/25 In Process (Atrovent Medneb) 11:15 Kub Abdomen Single XY 05/02/25 Resulted View 11:06 Communication Order ORDERS 05/02/25 Transmitted 11:06 Meropenem 2gm/ 250ml PHA 05/03/25 In Process 02:00 Chest Portable XY 05/03/25 Resulted 04:00 Date of Service: May 03, 2025 Billing Provider: KAYLYNN AGUILAR MD Common Visit Codes: [id number] CARE 30-74 MIN KAYLYNN AGUILAR MD May 03, 2025 09:51
[2025-05-03] MEDS ORDERED: ARTIFICIAL TEARS 15ml EACHEYE PRN (10:45)
[2025-05-04] VITALS (25 sets, daily range): BP systolic 94–136; BP diastolic 37–64; PULSE 72–80; RESP 14–22; TEMP 97.8–98.6; O2SAT 90–98
[2025-05-04 05:31] LABS: Hematocrit 30.7 % (36.0-46.0); Hemoglobin 9.8 g/dL (12.2-16.2); Mean Corpuscular Hemoglobin 29.1 pg (28.0-32.0); Mean Corpuscular Volume 91.5 fL (80.0-100.0); Nucleated Red Blood Cells % 0.1 %
[2025-05-04 05:40] LABS: Chloride 105 mmol/L (98-107); Sodium 141 mmol/L (136-145)
[2025-05-04 05:41] LABS: Anion Gap 9 (5-15); Calcium 8.9 mg/dL (8.7-10.4); Carbon Dioxide 27 mmol/L (20-31)
[2025-05-04 05:46] LABS: BUN/Creatinine Ratio 15.8 (10.0-20.0); Blood Urea Nitrogen 15 mg/dL (9-23)
[2025-05-04 05:49] LABS: Glucose 127 mg/dL (74-106); Potassium 3.3 mmol/L (3.5-5.1)
--- NOTE | 2025-05-04 09:16 | DVHPN2 ---
Subjective Patient's symptoms are improving. Generalized weakness is improving. Denies any urine symptoms at this time Reviewed: H&P Changes from previous H/P or p: No Changes General: Per HPI Objective Vitals Vital Signs Date Time Temp Pulse Resp B/P (MAP) Pulse Ox O2 Delivery O2 Flow Rate FiO2 05/04/25 08:00 79 20 93 Nasal Cannula* 2 28 05/04/25 08:00 98.6 113/59 (77) 98.6 Intake/Output Intake and Output 05/04/25 07:00 Intake Total 2030.0 ml Output Total 1650 ml Balance 380.0 ml Intake Oral 1330 ml IV Total 700.0 ml Output Urine Total 1650 ml # Bowel Movements 5 Exam GEN: Healthy appearing, well-developed, NAD. HEENT: NC/AT; MMM. CV: RRR, no m/r/g. LUNGS: CTAB, no w/r/c. ABD: Soft, NT/ND, NBS, no masses or organomegaly. EXT: skin Warm, well perfused. no rashes. No clubbing, cyanosis, or edema. Left upper extremity improved. Pulses present bilaterally all extremities warm. NEURO: Ambulating with no limitations. No focal deficits. Medications Current Medications Medications Dose Ordered Sig/Love Route Start Time Stop Time Status Last Admin Dose Admin Ondansetron HCl 4 mg Q4HP PRN IV 04/29/25 14:15 Nitroglycerin 0.4 mg Q5MINP PRN SL 04/29/25 14:15 Morphine Sulfate 2 mg Q30M PRN IV 04/29/25 14:15 Pravastatin Sodium 80 mg DAILY PO 04/30/25 10:00 05/03/25 09:18 80 MG Patient Own Medication 4 mg EOD PO 05/01/25 10:00 UNV Warfarin Sodium RX PROTOCOL PER PHARMACY PO 04/29/25 15:15 Cancel Clopidogrel Bisulfate 75 mg DAILY PO 04/30/25 10:00 05/03/25 09:17 75 MG Acetaminophen 650 mg Q6HP PRN PO 04/30/25 10:30 05/01/25 02:07 650 MG Furosemide 40 mg DAILY PO 04/30/25 11:45 05/03/25 09:17 40 MG Norepinephrine Bitartrate 250 ml @ 3.75 mls/hr Q24H IV 04/30/25 12:15 05/02/25 06:06 1.875 MLS/HR Enoxaparin Sodium 40 mg DAILY SC 05/01/25 10:00 UNV Enoxaparin Sodium 50 mg DAILY SC 05/01/25 10:00 05/03/25 09:18 50 MG Carbidopa/Levodopa 1 tab HS PO 04/30/25 22:00 05/03/25 21:07 1 TAB Sodium Chloride 10 ml QSHIFT@10,22 IV 04/30/25 22:00 05/03/25 21:07 10 ML Acetaminophen/ Hydrocodone Bitart 1 tab Q8HPRN PRN PO 05/01/25 11:00 05/02/25 04:49 1 TAB Baclofen 10 mg Q12HP PRN PO 05/01/25 22:00 05/02/25 04:48 10 MG Polyethylene Glycol 17 gm DAILY PO 05/02/25 10:00 05/03/25 09:17 17 GM Alprazolam 0.25 mg Q8HP PRN PO 05/01/25 11:00 Pantoprazole Sodium 40 mg DAILY IV 05/02/25 10:00 05/03/25 09:16 40 MG Doxycycline Hyclate 100 ml @ 50 mls/hr Q12H IV 05/02/25 14:00 05/04/25 01:51 50 MLS/HR Hydrocortisone Sodium Succinate 50 mg Q12HR IV 05/02/25 22:00 05/07/25 21:59 05/03/25 21:07 50 MG Midodrine 10 mg TID@0600,1200,1800 PO 05/02/25 12:00 05/04/25 05:30 10 MG Ipratropium [place] 0.5 mg Q6HPRN PRN NEB 05/02/25 11:15 05/03/25 17:05 0.5 MG Meropenem 250 ml @ 83.3 mls/hr Q12H IV 05/03/25 02:00 05/04/25 01:51 83.3 MLS/HR Artificial Tears 1 drop Q2HP PRN EACHEYE 05/03/25 10:45 Laboratory Results Laboratory Tests 05/04/25 04:40 Chemistry Test 05/04/25 04:40 Calcium Level 8.9 mg/dL (8.7-10.4) Magnesium Level 1.8 mg/dL (1.6-2.6) Urinalysis Test 04/29/25 09:22 Urine Color Light-yellow (Yellow) Urine Clarity Clear (Clear) Urine pH 6.0 (5.0-9.0) Urine Specific [place] 1.009 (1.001-1.035) Urine Protein Negative (Negative) Urine Ketones Negative (Negative) Urine Blood Negative /uL (Negative) Urine Nitrite 1+ (Negative) H Urine Bilirubin Negative (Negative) Urine Urobilinogen Normal mg/dL (Negative) Urine Leukocyte Esterase 1+ /uL (Negative) Urine RBC 3 /hpf (0 - 4) Urine Microscopic WBC 12 /HPF (0-5) H Urine Squamous Epithelial Cells Few /hpf (<5) Urine Bacteria Few /hpf (None Seen) H Urine Glucose Normal mg/dL (Normal) Microbiology Microbiology Date/Time Source Procedure Growth Status 04/29/25 16:40 Nose MRSA Screen - Final Complete 04/29/25 09:23 Urine - Lane [place] Urine Culture - Final Escherichia coli Complete 04/29/25 08:16 Blood Blood Culture - Final NO GROWTH AFTER 5 DAYS OF INCUBATION. Complete Labs and/or images reviewed: Labs reviewed by me, Image(s) reviewed by me Assessment/Plan Assessment/Plan History of Present Illness Stacie Padilla is an 84-year-old female with past medical history of hypertension, AFib, CHF, hypothyroidism, CVA with right-sided deficits, GERD, SD, pacemaker, appendectomy, hysterectomy, and tonsillectomy who presents to the ED with generalized weakness and poor appetite x3 days. Patient reports that she has been having these symptoms over the past several days and has been unable to walk. She reports that she lives alone. She denies any drug use, alcohol use, or tobacco use. Patient denies any chest pain, shortness of breath, fever, chills, lightheadedness, dizziness, abdominal pain, nausea vomiting, diarrhea, urinary symptoms, recent trauma or injury, recent sick contacts, recent ingestion of spoiled food, or recent travels. Patient reports that her sister lives in [place]. Also states her daughter lives in [place] and her son lives in [place]. She reports that she does not want to inform her children however is open to informing her sister. Phone number [phone]. Called patient's sister Delia and her Charissa and informed them of the patient's status including plan of care. 04/30- last night patient had multiple IVs on left arm at least 1 infusing Levophed vasopressor. Thereafter patient lost pulse on right radial. Arterial ultrasound was negative for any arterial thrombus. IVs were removed and instead started on the right hand. Today DVT ultrasound showing multiple small superficial vein thrombosis. Lovenox 40 subQ daily started. No need for full dose anticoagulation with no. We will have to escalate antibiotics from ceftriaxone to meropenem/doxycycline. Continue to monitor lactic acidosis. 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 Patient agrees to PICC line and she is on vasopressors. Patient was given options of central CvC versus PICC line. 05/01-left arm is looking improved, edema has significantly improved. Yesterday ultrasound left arm for DVT study which showed multiple superficial vein thrombosis. We have Lovenox 40 DVT prophylaxis and Plavix home med. Pulses present x4. We are weaning down oxygen, she is on home oxygen. Still on Levophed we will do some bolus trials of 250 cc to see if able to wean off. Otherwise continue treatment for UTI. Continue broad-spectrum antibiotics. We will give fluid bolus and repeat lactic. Antibiotics meropenem/doxycycline. Stop Rocephin. 05/02--left arm continues to improve. Good pulses. Unable to wean off Levophed. We will start septic steroids, midodrine 10 t.i.d. in 500 cc over 5 hours. Urine output 12 hour is 450. Adequate. Continuing broad-spectrum antibiotics meropenem/doxycycline. Urine culture with E coli with multiple sensitivities but patient is still in shock we will continue broad-spectrum. Continuing Lovenox 40 subQ daily. Lactic acidosis is resolving. She is having abdominal pain no bowel movements. We will given loop magnesia, today giving MiraLax. Patient says I am miserable , we will try enema, KUB today. Complaining of dry nose and/or be is on, RT we will evaluate if continue tophi and/or be to maintain oxygen > 90. RT okay to try EzPAP if they seem patient good candidate. 05/03 measures from yesterday appear to be improving patient's condition. Patient is weaned off of Levophed. She is on continued hydrocortisone injections and monitoring p.o. t.i.d.. Feeling better. Left and continues to look good. She has Doppler pulses lower extremities bilaterally. Wheezing today we will continue giving prn ipratropium. Urine output adequate. Continuing IV antibiotics. Maps more than 75. Continuing constipation bowel regimen. We will deescalate care to D OU and monitor another 24 hours. Start PT. 05/04-patient worked with PT really well.. Overnight patient had? Nightmare and woke up delirious but was staff was able to reorient and patient went back to sleep. This morning patient has had liquidy bowel movements x6 and needing to go again. We have been giving her MiraLax. Vital signs stable. Patient is off of levo for more than 24 hours. We are continuing monitoring and shock hydrocortisone IV. We will need to give 3 more days of IV hydrocortisone and we will continue IV antibiotics. She is growing E coli which is sensitive to Macrobid and ceftriaxone. We will deescalate today to ceftriaxone doxycycline. Her abdomen feels better to her, no pain was still appears large for her size. We will get KUB. We will move to tele with sitter. Continue PT, continue diet, Diagnosis: Sepsis with septic shock, due to below Acute complicated UTI, Shock requiring vasopressor support Hyperkalemia Anemia, normocytic Probable pneumonia, Gram-negative Gram-positive possible Lactic acidosis likely due to sepsis Neutrophilia Tachycardia Tachypnea EDY likely due to sepsis Acute on chronic CHF exacerbation Acute hypoxic respiratory failure requiring mechanical ventilation History of hypertension History of AFib History of hypothyroidism History of CVA with right-sided deficits History of GERD History of SD History of appendectomy History of hysterectomy History of pacemaker History of tonsillectomy Plan: -Prn pain control -Nightly Sinemet for restless legs syndrome -Ceftriaxone change to meropenem/doxycycline > ceftriaxone/doxycycline -Continue home meds Plavix, Lasix p.o., pravastatin, -Levophed maintain map > 65 -Consult Dr. smith -[facility] Surgical consult was done but issue was resolving. -PICC line Diet mechanical soft DVT prophylaxis-Lovenox subQ daily GI prophylaxis-Protonix IV 40 daily Tele Full code Plan discussed with: Patient My Orders Orders - KAYLYNN AGUILAR MD Procedure Category Date Status Time * Dietary Consult CONS 05/03/25 Transmitted 10:30 Pt Request For Service PT 05/03/25 Logged 10:39 Artificial Tear 15ml PHA 05/03/25 In Process Opthalmic (Tears Na 10:45 Transfer Orders XFER 05/03/25 Transmitted 16:12 Mechanical Soft Diet DIET 05/04/25 Transmitted Breakfast Transfer Orders XFER 05/04/25 Transmitted 08:59 Sitter 1:1 ORDERS 05/04/25 Transmitted 08:59 Date of Service: May 04, 2025 Billing Provider: KAYLYNN AGUILAR MD Common Visit Codes: [id number] CARE 30-74 MIN KAYLYNN AGUILAR MD May 04, 2025 09:16
--- NOTE | 2025-05-04 10:47 | DVHPN2 ---
Progress Note - Dictate Date Seen: May 03, 2025 Medical Necessity Reason Pt with a Central, PICC or Fol: No Subjective PT WITH SS COMPLEX FEVER SEPSIS DISORIENTATION DVT OF UPPER EXT PMH; SEVERE PAH SEVERE MR LAE EF50% NOW WITH SOB MCGUIRE AFIB HX OF CVA CT OD ABD PELVIS NEGATIVE UPPER EXTREMITY ARTERIAL DUPLEX NEGATIVE vital signs Vital Sign Date Time Temp Pulse Resp B/P (MAP) Pulse Ox O2 Delivery O2 Flow Rate FiO2 05/04/25 08:00 79 20 93 Nasal Cannula* 2 28 05/04/25 08:00 98.6 113/59 (77) 98.6 Total Intake and Output 05/03/25 05/03/25 05/04/25 15:00 23:00 07:00 Intake Total 360 ml 1070 ml 600.0 ml Output Total 550 ml 1100 ml Balance 360 ml 520 ml -500.0 ml medications Current Medications Medications Dose Ordered Sig/Love Route Start Time Stop Time Status Last Admin Dose Admin Ondansetron HCl 4 mg Q4HP PRN IV 04/29/25 14:15 Nitroglycerin 0.4 mg Q5MINP PRN SL 04/29/25 14:15 Morphine Sulfate 2 mg Q30M PRN IV 04/29/25 14:15 Pravastatin Sodium 80 mg DAILY PO 04/30/25 10:00 05/03/25 09:18 80 MG Patient Own Medication 4 mg EOD PO 05/01/25 10:00 UNV Warfarin Sodium RX PROTOCOL PER PHARMACY PO 04/29/25 15:15 Cancel Clopidogrel Bisulfate 75 mg DAILY PO 04/30/25 10:00 05/03/25 09:17 75 MG Acetaminophen 650 mg Q6HP PRN PO 04/30/25 10:30 05/01/25 02:07 650 MG Furosemide 40 mg DAILY PO 04/30/25 11:45 05/03/25 09:17 40 MG Norepinephrine Bitartrate 250 ml @ 3.75 mls/hr Q24H IV 04/30/25 12:15 05/02/25 06:06 1.875 MLS/HR Enoxaparin Sodium 40 mg DAILY SC 05/01/25 10:00 UNV Enoxaparin Sodium 50 mg DAILY SC 05/01/25 10:00 05/03/25 09:18 50 MG Carbidopa/Levodopa 1 tab HS PO 04/30/25 22:00 05/03/25 21:07 1 TAB Sodium Chloride 10 ml QSHIFT@10,22 IV 04/30/25 22:00 05/03/25 21:07 10 ML Acetaminophen/ Hydrocodone Bitart 1 tab Q8HPRN PRN PO 05/01/25 11:00 05/02/25 04:49 1 TAB Baclofen 10 mg Q12HP PRN PO 05/01/25 22:00 05/02/25 04:48 10 MG Polyethylene Glycol 17 gm DAILY PO 05/02/25 10:00 05/03/25 09:17 17 GM Alprazolam 0.25 mg Q8HP PRN PO 05/01/25 11:00 Pantoprazole Sodium 40 mg DAILY IV 05/02/25 10:00 05/03/25 09:16 40 MG Doxycycline Hyclate 100 ml @ 50 mls/hr Q12H IV 05/02/25 14:00 05/04/25 01:51 50 MLS/HR Hydrocortisone Sodium Succinate 50 mg Q12HR IV 05/02/25 22:00 05/07/25 21:59 05/03/25 21:07 50 MG Midodrine 10 mg TID@0600,1200,1800 PO 05/02/25 12:00 05/04/25 05:30 10 MG Ipratropium [place] 0.5 mg Q6HPRN PRN NEB 05/02/25 11:15 05/03/25 17:05 0.5 MG Artificial Tears 1 drop Q2HP PRN EACHEYE 05/03/25 10:45 Ceftriaxone Sodium 50 ml @ 100 mls/hr DAILY@09 IV 05/05/25 09:00 laboratory and microbiology Laboratory Tests 05/04/25 04:40 Test 05/04/25 04:40 Range/Units Serum Glucose 127 H 74-106 mg/dL Problem List SS COMPLEX FEVER SEPSIS DISORIENTATION DVT OF UPEER EXTREMITY PMH; SEVERE PAH SEVERE MR LAE EF50% NOW WITH SOB MCGUIRE AFIB HX OF CVA Assessment/Plan off all pressors MAY TRANSFER OUT OF ICU PT ANTICOAGULATION Dietary Evaluation Review Comments: 1) Consider ENsure enlive 240ml BID if PO intake < 50% 2) Monitor PO intake, I/O, Lab values Expected Outcomes/Goals: To meet >75% estimated needs Fu 3-5 days Plan discussed with: Patient Critical Care Time(min): 35 JUN MOORE MD May 04, 2025 10:47
--- NOTE | 2025-05-04 10:53 | DVHPN2 ---
Progress Note - Dictate Date Seen: May 04, 2024 Medical Necessity Reason Pt with a Central, PICC or Fol: No Subjective PT WITH SS COMPLEX FEVER SEPSIS DISORIENTATION DVT OF UPPER EXT PMH; SEVERE PAH SEVERE MR LAE EF50% NOW WITH SOB MCGUIRE AFIB HX OF CVA CT OD ABD PELVIS NEGATIVE UPPER EXTREMITY ARTERIAL DUPLEX NEGATIVE vital signs Vital Sign Date Time Temp Pulse Resp B/P (MAP) Pulse Ox O2 Delivery O2 Flow Rate FiO2 05/04/25 08:00 79 20 93 Nasal Cannula* 2 28 05/04/25 08:00 98.6 113/59 (77) 98.6 Total Intake and Output 05/03/25 05/03/25 05/04/25 15:00 23:00 07:00 Intake Total 360 ml 1070 ml 600.0 ml Output Total 550 ml 1100 ml Balance 360 ml 520 ml -500.0 ml medications Current Medications Medications Dose Ordered Sig/Love Route Start Time Stop Time Status Last Admin Dose Admin Ondansetron HCl 4 mg Q4HP PRN IV 04/29/25 14:15 Nitroglycerin 0.4 mg Q5MINP PRN SL 04/29/25 14:15 Morphine Sulfate 2 mg Q30M PRN IV 04/29/25 14:15 Pravastatin Sodium 80 mg DAILY PO 04/30/25 10:00 05/03/25 09:18 80 MG Patient Own Medication 4 mg EOD PO 05/01/25 10:00 UNV Warfarin Sodium RX PROTOCOL PER PHARMACY PO 04/29/25 15:15 Cancel Clopidogrel Bisulfate 75 mg DAILY PO 04/30/25 10:00 05/03/25 09:17 75 MG Acetaminophen 650 mg Q6HP PRN PO 04/30/25 10:30 05/01/25 02:07 650 MG Furosemide 40 mg DAILY PO 04/30/25 11:45 05/03/25 09:17 40 MG Norepinephrine Bitartrate 250 ml @ 3.75 mls/hr Q24H IV 04/30/25 12:15 05/02/25 06:06 1.875 MLS/HR Enoxaparin Sodium 40 mg DAILY SC 05/01/25 10:00 UNV Enoxaparin Sodium 50 mg DAILY SC 05/01/25 10:00 05/03/25 09:18 50 MG Carbidopa/Levodopa 1 tab HS PO 04/30/25 22:00 05/03/25 21:07 1 TAB Sodium Chloride 10 ml QSHIFT@10,22 IV 04/30/25 22:00 05/03/25 21:07 10 ML Acetaminophen/ Hydrocodone Bitart 1 tab Q8HPRN PRN PO 05/01/25 11:00 05/02/25 04:49 1 TAB Baclofen 10 mg Q12HP PRN PO 05/01/25 22:00 05/02/25 04:48 10 MG Polyethylene Glycol 17 gm DAILY PO 05/02/25 10:00 05/03/25 09:17 17 GM Alprazolam 0.25 mg Q8HP PRN PO 05/01/25 11:00 Pantoprazole Sodium 40 mg DAILY IV 05/02/25 10:00 05/03/25 09:16 40 MG Doxycycline Hyclate 100 ml @ 50 mls/hr Q12H IV 05/02/25 14:00 05/04/25 01:51 50 MLS/HR Hydrocortisone Sodium Succinate 50 mg Q12HR IV 05/02/25 22:00 05/07/25 21:59 05/03/25 21:07 50 MG Midodrine 10 mg TID@0600,1200,1800 PO 05/02/25 12:00 05/04/25 05:30 10 MG Ipratropium [place] 0.5 mg Q6HPRN PRN NEB 05/02/25 11:15 05/03/25 17:05 0.5 MG Artificial Tears 1 drop Q2HP PRN EACHEYE 05/03/25 10:45 Ceftriaxone Sodium 50 ml @ 100 mls/hr DAILY@09 IV 05/05/25 09:00 laboratory and microbiology Laboratory Tests 05/04/25 04:40 Test 05/04/25 04:40 Range/Units Serum Glucose 127 H 74-106 mg/dL Problem List SS COMPLEX FEVER SEPSIS DISORIENTATION DVT OF UPEER EXTREMITY PMH; SEVERE PAH SEVERE MR LAE EF50% NOW WITH SOB MCGUIRE AFIB HX OF CVA UIT PNEUMONIA RESP FAILURE DVT SECONDARY TO PRESSOR INFUSION Assessment/Plan off all pressors MAY TRANSFER OUT OF ICU PT ANTICOAGULATION Dietary Evaluation Review Comments: 1) Consider ENsure enlive 240ml BID if PO intake < 50% 2) Monitor PO intake, I/O, Lab values Expected Outcomes/Goals: To meet >75% estimated needs Fu 3-5 days Plan discussed with: Patient Critical Care Time(min): 35 JUN MOORE MD May 04, 2025 10:53
--- NOTE | 2025-05-04 11:08 | DVH ---
Date: 05/04/2025 10:32 AM Examination: XY KUB ABDOMEN SINGLE VIEW History: pain R/O obstruction Comparison: XY KUB ABDOMEN SINGLE VIEW on DOS: 05/02/25 TECHNIQUE: Frontal views of the abdomen was obtained. FINDINGS: Bowel gas pattern is unremarkable. Large stool burden. Small right pleural. Bibasilar opacities. No acute osseous abnormality identified. Status post right hip arthroplasty. 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
[2025-05-04] MEDS: cefTRIAXone 1GM/50ML D5W 50 ML IV ONE (11:15)
[2025-05-04] MEDS: MAGNESIUM SULFATE 1GM/100ML 100 ML IV ONE (11:22)
[2025-05-04] MEDS: POTASSIUM EFFERVESENT TAB 25 MEQ PO ONE (11:23)
[2025-05-05] VITALS (14 sets, daily range): BP systolic 98–154; BP diastolic 42–80; PULSE 76–80; RESP 16–19; TEMP 97.5–99.3; O2SAT 90–97
[2025-05-05 06:53] LABS: Hematocrit 32.5 % (36.0-46.0); Hemoglobin 10.5 g/dL (12.2-16.2); Mean Corpuscular Hemoglobin 29.3 pg (28.0-32.0); Mean Corpuscular Volume 90.8 fL (80.0-100.0); Nucleated Red Blood Cells % 0.1 %
[2025-05-05 07:01] LABS: Alanine Aminotransferase 11 U/L (7-40); Albumin 3.4 g/dL (3.2-4.8); Alkaline Phosphatase 84 U/L (46-116); Anion Gap 7 (5-15); BUN/Creatinine Ratio 17.6 (10.0-20.0); Bilirubin, Total 0.4 mg/dL (0.2-1.0); Blood Urea Nitrogen 16 mg/dL (9-23); Calcium 8.4 mg/dL (8.7-10.4); Carbon Dioxide 30 mmol/L (20-31); Chloride 103 mmol/L (98-107); Glucose 101 mg/dL (74-106); Potassium 3.1 mmol/L (3.5-5.1); Sodium 140 mmol/L (136-145)
[2025-05-05 07:02] LABS: Total Protein 5.6 g/dL (5.7-8.2)
[2025-05-05] MEDS: cefTRIAXone 1GM/50ML D5W 50 ML IV SCH (09:16)
[2025-05-05] MEDS: HYDROCORTISONE SOD SUCC 100 MG/2ML INJ VIAL IV SCH (09:18)
--- NOTE | 2025-05-05 10:06 | DVHPN2 ---
Subjective Patient's symptoms are improving. Generalized weakness is improving. Denies any urine symptoms at this time Reviewed: H&P Changes from previous H/P or p: No Changes General: Per HPI Objective Vitals Vital Signs Date Time Temp Pulse Resp B/P (MAP) Pulse Ox O2 Delivery O2 Flow Rate FiO2 05/05/25 09:23 146/80 05/05/25 06:43 97 Nasal Cannula* 2 28 05/05/25 05:25 99.3 79 19 99.3 Intake/Output Intake and Output 05/05/25 07:00 Intake Total 755 ml Output Total 2200 ml Balance -1445 ml Intake Oral 505 ml IV Total 250 ml Output Urine Total 2200 ml # Bowel Movements 1 Exam GEN: Healthy appearing, well-developed, NAD. HEENT: NC/AT; MMM. CV: RRR, no m/r/g. LUNGS: CTAB, no w/r/c. ABD: Soft, NT/ND, NBS, no masses or organomegaly. EXT: skin Warm, well perfused. no rashes. No clubbing, cyanosis, or edema. Left upper extremity improved. Pulses present bilaterally all extremities warm. NEURO: Ambulating with no limitations. No focal deficits. Medications Current Medications Medications Dose Ordered Sig/Love Route Start Time Stop Time Status Last Admin Dose Admin Ondansetron HCl 4 mg Q4HP PRN IV 04/29/25 14:15 Nitroglycerin 0.4 mg Q5MINP PRN SL 04/29/25 14:15 Morphine Sulfate 2 mg Q30M PRN IV 04/29/25 14:15 Pravastatin Sodium 80 mg DAILY PO 04/30/25 10:00 05/05/25 09:19 80 MG Patient Own Medication 4 mg EOD PO 05/01/25 10:00 UNV Warfarin Sodium RX PROTOCOL PER PHARMACY PO 04/29/25 15:15 Cancel Clopidogrel Bisulfate 75 mg DAILY PO 04/30/25 10:00 05/05/25 09:19 75 MG Acetaminophen 650 mg Q6HP PRN PO 04/30/25 10:30 05/01/25 02:07 650 MG Furosemide 40 mg DAILY PO 04/30/25 11:45 05/05/25 09:23 40 MG Enoxaparin Sodium 40 mg DAILY SC 05/01/25 10:00 UNV Enoxaparin Sodium 50 mg DAILY SC 05/01/25 10:00 05/05/25 09:20 50 MG Carbidopa/Levodopa 1 tab HS PO 04/30/25 22:00 05/04/25 21:31 1 TAB Sodium Chloride 10 ml QSHIFT@10,22 IV 04/30/25 22:00 05/05/25 09:19 10 ML Acetaminophen/ Hydrocodone Bitart 1 tab Q8HPRN PRN PO 05/01/25 11:00 05/02/25 04:49 1 TAB Baclofen 10 mg Q12HP PRN PO 05/01/25 22:00 05/02/25 04:48 10 MG Polyethylene Glycol 17 gm DAILY PO 05/02/25 10:00 05/05/25 09:19 17 GM Alprazolam 0.25 mg Q8HP PRN PO 05/01/25 11:00 Pantoprazole Sodium 40 mg DAILY IV 05/02/25 10:00 05/05/25 09:20 40 MG Doxycycline Hyclate 100 ml @ 50 mls/hr Q12H IV 05/02/25 14:00 05/05/25 01:04 50 MLS/HR Midodrine 10 mg TID@0600,1200,1800 PO 05/02/25 12:00 05/05/25 04:35 10 MG Ipratropium [place] 0.5 mg Q6HPRN PRN NEB 05/02/25 11:15 05/03/25 17:05 0.5 MG Artificial Tears 1 drop Q2HP PRN EACHEYE 05/03/25 10:45 Ceftriaxone Sodium 50 ml @ 100 mls/hr DAILY@09 IV 05/05/25 09:00 05/05/25 09:16 100 MLS/HR Hydrocortisone Sodium Succinate 50 mg DAILY IV 05/05/25 10:00 05/10/25 09:59 05/05/25 09:18 50 MG Laboratory Results Laboratory Tests 05/05/25 05:42 Chemistry Test 05/05/25 05:42 Albumin 3.4 g/dL (3.2-4.8) Calcium Level 8.4 mg/dL (8.7-10.4) L Total Protein 5.6 g/dL (5.7-8.2) L LFT Test 05/05/25 05:42 Alanine Aminotransferase (ALT) 11 U/L (7-40) Alkaline Phosphatase 84 U/L (46-116) Aspartate Amino Transferase (AST) 30 U/L (13-40) Total Bilirubin 0.4 mg/dL (0.2-1.0) Urinalysis Test 04/29/25 09:22 Urine Color Light-yellow (Yellow) Urine Clarity Clear (Clear) Urine pH 6.0 (5.0-9.0) Urine Specific [place] 1.009 (1.001-1.035) Urine Protein Negative (Negative) Urine Ketones Negative (Negative) Urine Blood Negative /uL (Negative) Urine Nitrite 1+ (Negative) H Urine Bilirubin Negative (Negative) Urine Urobilinogen Normal mg/dL (Negative) Urine Leukocyte Esterase 1+ /uL (Negative) Urine RBC 3 /hpf (0 - 4) Urine Microscopic WBC 12 /HPF (0-5) H Urine Squamous Epithelial Cells Few /hpf (<5) Urine Bacteria Few /hpf (None Seen) H Urine Glucose Normal mg/dL (Normal) Microbiology Microbiology Date/Time Source Procedure Growth Status 04/29/25 16:40 Nose MRSA Screen - Final Complete 04/29/25 09:23 Urine - Lane [place] Urine Culture - Final Escherichia coli Complete 04/29/25 08:16 Blood Blood Culture - Final NO GROWTH AFTER 5 DAYS OF INCUBATION. Complete Labs and/or images reviewed: Labs reviewed by me, Image(s) reviewed by me Assessment/Plan Assessment/Plan History of Present Illness Stacie Padilla is an 84-year-old female with past medical history of hypertension, AFib, CHF, hypothyroidism, CVA with right-sided deficits, GERD, [place], pacemaker, appendectomy, hysterectomy, and tonsillectomy who presents to the ED with generalized weakness and poor appetite x3 days. Patient reports that she has been having these symptoms over the past several days and has been unable to walk. She reports that she lives alone. She denies any drug use, alcohol use, or tobacco use. Patient denies any chest pain, shortness of breath, fever, chills, lightheadedness, dizziness, abdominal pain, nausea vomiting, diarrhea, urinary symptoms, recent trauma or injury, recent sick contacts, recent ingestion of spoiled food, or recent travels. Patient reports that her sister lives in [place]. Also states her daughter lives in [place] and her son lives in [place]. She reports that she does not want to inform her children however is open to informing her sister. Phone number [phone]. Called patient's sister Delia and her Charissa and informed them of the patient's status including plan of care. 04/30- last night patient had multiple IVs on left arm at least 1 infusing Levophed vasopressor. Thereafter patient lost pulse on right radial. Arterial ultrasound was negative for any arterial thrombus. IVs were removed and instead started on the right hand. Today DVT ultrasound showing multiple small superficial vein thrombosis. Lovenox 40 subQ daily started. No need for full dose anticoagulation with no. We will have to escalate antibiotics from ceftriaxone to meropenem/doxycycline. Continue to monitor lactic acidosis. 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 Patient agrees to PICC line and she is on vasopressors. Patient was given options of central CvC versus PICC line. 05/01-left arm is looking improved, edema has significantly improved. Yesterday ultrasound left arm for DVT study which showed multiple superficial vein thrombosis. We have Lovenox 40 DVT prophylaxis and Plavix home med. Pulses present x4. We are weaning down oxygen, she is on home oxygen. Still on Levophed we will do some bolus trials of 250 cc to see if able to wean off. Otherwise continue treatment for UTI. Continue broad-spectrum antibiotics. We will give fluid bolus and repeat lactic. Antibiotics meropenem/doxycycline. Stop Rocephin. 05/02--left arm continues to improve. Good pulses. Unable to wean off Levophed. We will start septic steroids, midodrine 10 t.i.d. in 500 cc over 5 hours. Urine output 12 hour is 450. Adequate. Continuing broad-spectrum antibiotics meropenem/doxycycline. Urine culture with E coli with multiple sensitivities but patient is still in shock we will continue broad-spectrum. Continuing Lovenox 40 subQ daily. Lactic acidosis is resolving. She is having abdominal pain no bowel movements. We will given loop magnesia, today giving MiraLax. Patient says I am miserable , we will try enema, KUB today. Complaining of dry nose and/or be is on, RT we will evaluate if continue tophi and/or be to maintain oxygen > 90. RT okay to try EzPAP if they seem patient good candidate. 05/03 measures from yesterday appear to be improving patient's condition. Patient is weaned off of Levophed. She is on continued hydrocortisone injections and monitoring p.o. t.i.d.. Feeling better. Left and continues to look good. She has Doppler pulses lower extremities bilaterally. Wheezing today we will continue giving prn ipratropium. Urine output adequate. Continuing IV antibiotics. Maps more than 75. Continuing constipation bowel regimen. We will deescalate care to D OU and monitor another 24 hours. Start PT. 05/04-patient worked with PT really well.. Overnight patient had? Nightmare and woke up delirious but was staff was able to reorient and patient went back to sleep. This morning patient has had liquidy bowel movements x6 and needing to go again. We have been giving her MiraLax. Vital signs stable. Patient is off of levo for more than 24 hours. We are continuing monitoring and shock hydrocortisone IV. We will need to give 3 more days of IV hydrocortisone and we will continue IV antibiotics. She is growing E coli which is sensitive to Macrobid and ceftriaxone. We will deescalate today to ceftriaxone doxycycline. Her abdomen feels better to her, no pain was still appears large for her size. We will get KUB. We will move to tele with sitter. Continue PT, continue diet, 05/05 today hemoglobin remains stable blood pressure remains stable. Hypokalemia 3.1 we will be repleted IV. Patient is ambulating, working with PT. Tolerating p.o.. Back to her baseline. PT recommends home PT but otherwise stable. We are weaning off steroids and continuing midodrine. Patient's urine with E coli resistant only to gentamicin, ampicillin/beta lactams. Possible DC tomorrow Diagnosis: Sepsis with septic shock, due to below Acute complicated UTI, Shock requiring vasopressor support Hyperkalemia Anemia, normocytic Probable pneumonia, Gram-negative Gram-positive possible Lactic acidosis likely due to sepsis Neutrophilia Tachycardia Tachypnea EDY likely due to sepsis Acute on chronic CHF exacerbation Acute hypoxic respiratory failure requiring mechanical ventilation History of hypertension History of AFib History of hypothyroidism History of CVA with right-sided deficits History of GERD History of [place] History of appendectomy History of hysterectomy History of pacemaker History of tonsillectomy Plan: -Prn pain control -Nightly Sinemet for restless legs syndrome -Ceftriaxone change to meropenem/doxycycline > ceftriaxone/doxycycline -Continue home meds Plavix, Lasix p.o., pravastatin, -Levophed maintain map > 65 -Consult Dr. smith -[facility] Surgical consult was done but issue was resolving. -PICC line Diet mechanical soft DVT prophylaxis-Lovenox subQ daily GI prophylaxis-Protonix IV 40 daily Tele Full code Plan discussed with: Patient My Orders Orders - KAYLYNN AGUILAR MD Procedure Category Date Status Time Kub Abdomen Single XY 05/04/25 Resulted View 10:01 Potassium Chloride PHA 05/05/25 In Process (Potassium Chloride). 08:15 Hydrocortisone PHA 05/05/25 In Process Succinate Inj 10:00 Date of Service: May 05, 2025 Billing Provider: KAYLYNN AGUILAR MD Common Visit Codes: [id number] INP/OBS CARE(HIGH) KAYLYNN AGUILAR MD May 05, 2025 10:06
[2025-05-05] MEDS: POTASSIUM CHLORIDE 40 MEQ, LIDOCAINE 1% (LOCAL ANESTH.) 4 ML in SODIUM CHL 0.9% 250 ML IV ONE (11:39)
--- NOTE | 2025-05-05 13:05 | DVHPN2 ---
Progress Note - Dictate Date Seen: May 05, 2025 Medical Necessity Reason Pt with a Central, PICC or Fol: No Subjective PT WITH SS COMPLEX FEVER SEPSIS DISORIENTATION DVT OF UPPER EXT PMH; SEVERE PAH SEVERE MR LAE EF50% NOW WITH SOB MCGUIRE AFIB HX OF CVA CT OD ABD PELVIS NEGATIVE UPPER EXTREMITY ARTERIAL DUPLEX NEGATIVE vital signs Vital Sign Date Time Temp Pulse Resp B/P (MAP) Pulse Ox O2 Delivery O2 Flow Rate FiO2 05/05/25 12:01 146/80 97 2.0 28 05/05/25 08:00 Nasal Cannula* 05/05/25 05:25 99.3 79 19 99.3 Total Intake and Output 05/04/25 05/04/25 05/05/25 15:00 23:00 07:00 Intake Total 370 ml 360 ml 25 ml Output Total 675 ml 1525 ml Balance 370 ml -315 ml -1500 ml medications Current Medications Medications Dose Ordered Sig/Love Route Start Time Stop Time Status Last Admin Dose Admin Ondansetron HCl 4 mg Q4HP PRN IV 04/29/25 14:15 Nitroglycerin 0.4 mg Q5MINP PRN SL 04/29/25 14:15 Morphine Sulfate 2 mg Q30M PRN IV 04/29/25 14:15 Pravastatin Sodium 80 mg DAILY PO 04/30/25 10:00 05/05/25 09:19 80 MG Patient Own Medication 4 mg EOD PO 05/01/25 10:00 UNV Warfarin Sodium RX PROTOCOL PER PHARMACY PO 04/29/25 15:15 Cancel Clopidogrel Bisulfate 75 mg DAILY PO 04/30/25 10:00 05/05/25 09:19 75 MG Acetaminophen 650 mg Q6HP PRN PO 04/30/25 10:30 05/01/25 02:07 650 MG Furosemide 40 mg DAILY PO 04/30/25 11:45 05/05/25 09:23 40 MG Enoxaparin Sodium 40 mg DAILY SC 05/01/25 10:00 UNV Enoxaparin Sodium 50 mg DAILY SC 05/01/25 10:00 05/05/25 09:20 50 MG Carbidopa/Levodopa 1 tab HS PO 04/30/25 22:00 05/04/25 21:31 1 TAB Sodium Chloride 10 ml QSHIFT@10,22 IV 04/30/25 22:00 05/05/25 09:19 10 ML Acetaminophen/ Hydrocodone Bitart 1 tab Q8HPRN PRN PO 05/01/25 11:00 05/02/25 04:49 1 TAB Baclofen 10 mg Q12HP PRN PO 05/01/25 22:00 05/02/25 04:48 10 MG Polyethylene Glycol 17 gm DAILY PO 05/02/25 10:00 05/05/25 09:19 17 GM Alprazolam 0.25 mg Q8HP PRN PO 05/01/25 11:00 Pantoprazole Sodium 40 mg DAILY IV 05/02/25 10:00 05/05/25 09:20 40 MG Doxycycline Hyclate 100 ml @ 50 mls/hr Q12H IV 05/02/25 14:00 05/05/25 01:04 50 MLS/HR Midodrine 10 mg TID@0600,1200,1800 PO 05/02/25 12:00 05/05/25 04:35 10 MG Ipratropium [place] 0.5 mg Q6HPRN PRN NEB 05/02/25 11:15 05/03/25 17:05 0.5 MG Artificial Tears 1 drop Q2HP PRN EACHEYE 05/03/25 10:45 Ceftriaxone Sodium 50 ml @ 100 mls/hr DAILY@09 IV 05/05/25 09:00 05/05/25 09:16 100 MLS/HR Hydrocortisone Sodium Succinate 50 mg DAILY IV 05/05/25 10:00 05/10/25 09:59 05/05/25 09:18 50 MG laboratory and microbiology Laboratory Tests 05/05/25 05:42 Test 05/05/25 05:42 Range/Units Serum Glucose 101 74-106 mg/dL Problem List SS COMPLEX FEVER SEPSIS DISORIENTATION DVT OF UPEER EXTREMITY PMH; SEVERE PAH SEVERE MR LAE EF50% NOW WITH SOB MCGUIRE AFIB HX OF CVA UIT PNEUMONIA RESP FAILURE DVT SECONDARY TO PRESSOR INFUSION HYPOKALEMIA Assessment/Plan off all pressors MAY TRANSFER OUT OF ICU PT ANTICOAGULATION CORRECT HYPOKALEMIA Dietary Evaluation Review Comments: 1) Consider ENsure enlive 240ml BID if PO intake < 50% 2) Monitor PO intake, I/O, Lab values Expected Outcomes/Goals: To meet >75% estimated needs Fu 3-5 days Plan discussed with: Patient JUN MOORE MD May 05, 2025 13:05
[2025-05-05] MEDS ORDERED: POTASSIUM EFFERVESENT TAB 25 MEQ GT ONE (13:15)
--- NOTE | 2025-05-05 14:15 | ECG ---
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
[2025-05-05] MEDS: POTASSIUM EFFERVESENT TAB 25 MEQ PO ONE (17:44)
[2025-05-05 22:15] LABS: Chloride 103 mmol/L (98-107); Potassium 3.9 mmol/L (3.5-5.1); Sodium 141 mmol/L (136-145)
[2025-05-05 22:16] LABS: Anion Gap 7 (5-15); Calcium 9.2 mg/dL (8.7-10.4)
[2025-05-05 22:19] LABS: Carbon Dioxide 31 mmol/L (20-31)
[2025-05-05 22:21] LABS: Glucose 115 mg/dL (74-106)
[2025-05-05 22:22] LABS: BUN/Creatinine Ratio 20.2 (10.0-20.0); Blood Urea Nitrogen 19 mg/dL (9-23)
[2025-05-06] VITALS (7 sets, daily range): BP systolic 117–153; BP diastolic 42–62; PULSE 79–85; RESP 17–20; TEMP 97.8–98.2; O2SAT 94–99
[2025-05-06 07:23] LABS: Calcium 9.5 mg/dL (8.7-10.4); Chloride 103 mmol/L (98-107); Potassium 4.5 mmol/L (3.5-5.1); Sodium 141 mmol/L (136-145)
[2025-05-06 07:24] LABS: Anion Gap 12 (5-15); Carbon Dioxide 26 mmol/L (20-31)
[2025-05-06 07:30] LABS: BUN/Creatinine Ratio 25.0 (10.0-20.0); Blood Urea Nitrogen 23 mg/dL (9-23)
[2025-05-06 07:35] LABS: Glucose 67 mg/dL (74-106)
[2025-05-06 07:44] LABS: Magnesium 1.9 mg/dL (1.6-2.6)
[2025-05-06] MEDS: MIDODRINE HCL 10 MG TAB PO SCH (09:35)
[2025-05-06] MEDS: LACTATED RINGER'S 1,000 ML IV ONE (10:15)
--- NOTE | 2025-05-06 11:23 | DVHPN2 ---
Progress Note - Dictate Date Seen: May 06, 2025 Medical Necessity Reason Pt with a Central, PICC or Fol: No Subjective PT WITH SS COMPLEX FEVER SEPSIS DISORIENTATION DVT OF UPPER EXT PMH; SEVERE PAH SEVERE MR LAE EF50% NOW WITH SOB MCGUIRE AFIB HX OF CVA CT OD ABD PELVIS NEGATIVE UPPER EXTREMITY ARTERIAL DUPLEX NEGATIVE vital signs Vital Sign Date Time Temp Pulse Resp B/P (MAP) Pulse Ox O2 Delivery O2 Flow Rate FiO2 05/06/25 10:05 99 Nasal Cannula 3.0 05/06/25 10:05 32 05/06/25 09:34 117/45 05/06/25 09:00 97.8 79 18 97.8 Total Intake and Output 05/05/25 05/05/25 05/06/25 14:59 22:59 06:59 Intake Total 50 ml 1434 ml 534 ml Output Total 875 ml 200 ml Balance 50 ml 559 ml 334 ml medications Current Medications Medications Dose Ordered Sig/Love Route Start Time Stop Time Status Last Admin Dose Admin Ondansetron HCl 4 mg Q4HP PRN IV 04/29/25 14:15 Nitroglycerin 0.4 mg Q5MINP PRN SL 04/29/25 14:15 Morphine Sulfate 2 mg Q30M PRN IV 04/29/25 14:15 Pravastatin Sodium 80 mg DAILY PO 04/30/25 10:00 05/06/25 09:34 80 MG Patient Own Medication 4 mg EOD PO 05/01/25 10:00 UNV Warfarin Sodium RX PROTOCOL PER PHARMACY PO 04/29/25 15:15 Cancel Clopidogrel Bisulfate 75 mg DAILY PO 04/30/25 10:00 05/06/25 09:34 75 MG Acetaminophen 650 mg Q6HP PRN PO 04/30/25 10:30 05/01/25 02:07 650 MG Furosemide 40 mg DAILY PO 04/30/25 11:45 05/06/25 09:34 40 MG Enoxaparin Sodium 40 mg DAILY SC 05/01/25 10:00 UNV Carbidopa/Levodopa 1 tab HS PO 04/30/25 22:00 05/05/25 21:01 1 TAB Sodium Chloride 10 ml QSHIFT@10,22 IV 04/30/25 22:00 05/06/25 10:00 10 ML Acetaminophen/ Hydrocodone Bitart 1 tab Q8HPRN PRN PO 05/01/25 11:00 05/02/25 04:49 1 TAB Baclofen 10 mg Q12HP PRN PO 05/01/25 22:00 05/02/25 04:48 10 MG Polyethylene Glycol 17 gm DAILY PO 05/02/25 10:00 05/05/25 09:19 17 GM Alprazolam 0.25 mg Q8HP PRN PO 05/01/25 11:00 Pantoprazole Sodium 40 mg DAILY IV 05/02/25 10:00 05/06/25 09:23 40 MG Doxycycline Hyclate 100 ml @ 50 mls/hr Q12H IV 05/02/25 14:00 05/06/25 01:52 50 MLS/HR Ipratropium [place] 0.5 mg Q6HPRN PRN NEB 05/02/25 11:15 05/06/25 04:08 0.5 MG Artificial Tears 1 drop Q2HP PRN EACHEYE 05/03/25 10:45 Ceftriaxone Sodium 50 ml @ 100 mls/hr DAILY@09 IV 05/05/25 09:00 05/06/25 09:00 100 MLS/HR Enoxaparin Sodium 40 mg DAILY SC 05/07/25 10:00 Midodrine 5 mg BID@1000,1800 PO 05/06/25 18:00 Hydrocortisone 40 mg DAILY PO 05/07/25 10:00 laboratory and microbiology Laboratory Tests 05/06/25 06:19 05/05/25 05:42 Test 05/06/25 06:19 Range/Units Serum Glucose 67 L 74-106 mg/dL Problem List SS COMPLEX FEVER SEPSIS DISORIENTATION DVT OF UPEER EXTREMITY PMH; SEVERE PAH SEVERE MR LAE EF50% NOW WITH SOB MCGUIRE AFIB HX OF CVA UIT PNEUMONIA RESP FAILURE DVT SECONDARY TO PRESSOR INFUSION HYPOKALEMIA Assessment/Plan off all pressors MAY TRANSFER OUT OF ICU PT ANTICOAGULATION CORRECT HYPOKALEMIA CORRECTED K+ 4.5 Dietary Evaluation Review Comments: 1) Consider ENsure enlive 240ml BID if PO intake < 50% 2) Monitor PO intake, I/O, Lab values Expected Outcomes/Goals: To meet >75% estimated needs Fu 3-5 days Plan discussed with: Patient JUN MOORE MD May 06, 2025 11:23
[2025-05-06] MEDS: SODIUM PHOSPHATES 20 MEQ in SODIUM CHL 0.9% 100 ML IV ONE (11:39)
[2025-05-06] MEDS ORDERED: NITR-52 PO (11:50)
[2025-05-06] MEDS ORDERED: MID10T PO (11:56)
--- NOTE | 2025-05-06 12:04 | DVHDS2 ---
Discharge Summary Date of Admission Apr 29, 2025 at 14:06 Date of Discharge: May 06, 2025 Labs/Diagnostic Data: Laboratory Results Test 05/06/25 06:19 05/05/25 05:42 05/01/25 12:42 04/29/25 15:04 Sodium Level 141 mmol/L (136-145) Potassium Level 4.5 mmol/L (3.5-5.1) Chloride Level 103 mmol/L (98-107) Carbon Dioxide Level 26 mmol/L (20-31) Anion Gap 12 (5-15) Blood Urea Nitrogen 23 mg/dL (9-23) Creatinine 0.92 mg/dL (0.550-1.02) Glomerular Filtration Rate Calc 61 mL/min (>90) BUN/Creatinine Ratio 25.0 (10.0-20.0) Serum Glucose 67 mg/dL (74-106) Calcium Level 9.5 mg/dL (8.7-10.4) Phosphorus Level 2.2 mg/dL (2.4-5.1) Magnesium Level 1.9 mg/dL (1.6-2.6) White Blood Count 7.8 10^3/uL (4.4-10.8) Red Blood Count 3.57 10^6/uL (4.0-5.20) Hemoglobin 10.5 g/dL (12.2-16.2) Hematocrit 32.5 % (36.0-46.0) Mean Corpuscular Volume 90.8 fL (80.0-100.0) Mean Corpuscular Hemoglobin 29.3 pg (28.0-32.0) Mean Corpuscular Hemoglobin Concent 32.2 g/dL (32.0-36.0) Red Cell Distribution Width 16.9 % (11.8-14.3) Platelet Count 199 10^3/uL (140-450) Mean Platelet Volume 7.9 fL (6.9-10.8) Neutrophils (%) (Auto) 93.7 % (37.0-80.0) Lymphocytes (%) (Auto) 4.0 % (10.0-50.0) Monocytes (%) (Auto) 2.3 % (0.0-12.0) Eosinophils (%) (Auto) 0.0 % (0.0-7.0) Basophils (%) (Auto) 0.0 % (0.0-2.0) Neutrophils # (Auto) 7.3 10 ^3/uL (1.6-8.6) Lymphocytes # (Auto) 0.3 10 ^3/uL (0.4-5.4) Monocytes # (Auto) 0.2 10 ^3/uL (0-1.3) Eosinophils # (Auto) 0 10 ^3/uL (0-0.8) Basophils # (Auto) 0 10 ^3/uL (0-0.2) Nucleated Red Blood Cells 0.1 % Total Bilirubin 0.4 mg/dL (0.2-1.0) Aspartate Amino Transferase (AST) 30 U/L (13-40) Alanine Aminotransferase (ALT) 11 U/L (7-40) Alkaline Phosphatase 84 U/L (46-116) Total Protein 5.6 g/dL (5.7-8.2) Albumin 3.4 g/dL (3.2-4.8) Lactic Acid Level 1.3 mmol/L (0.4-2.0) POC Glucose 169 mg/dl (70-106) Test 04/29/25 09:22 04/29/25 08:16 Urine Color Light-yellow (Yellow) Urine Clarity Clear (Clear) Urine pH 6.0 (5.0-9.0) Urine Specific [place] 1.009 (1.001-1.035) Urine Protein Negative (Negative) Urine Ketones Negative (Negative) Urine Blood Negative /uL (Negative) Urine Nitrite 1+ (Negative) Urine Bilirubin Negative (Negative) Urine Urobilinogen Normal mg/dL (Negative) Urine Leukocyte Esterase 1+ /uL (Negative) Urine RBC 3 /hpf (0 - 4) Urine Microscopic WBC 12 /HPF (0-5) Urine Squamous Epithelial Cells Few /hpf (<5) Urine Bacteria Few /hpf (None Seen) Urine Glucose Normal mg/dL (Normal) Prothrombin Time 12.6 sec (9.3-11.8) Prothrombin Time INR 1.21 (0.9-1.15) Activated Partial Thromboplast Time 22.8 SEC (24.5-34.5) Other Laboratory Tests 05/06/25 06:19 05/05/25 05:42 Brief Hx & Hospital Course: History of Present Illness : Stacie Padilal is an 84-year-old female with past medical history of hypertension, AFib, CHF, hypothyroidism, CVA with right-sided deficits, GERD, [place], pacemaker, appendectomy, hysterectomy, and tonsillectomy who presents to the ED with generalized weakness and poor appetite x3 days. Patient reports that she has been having these symptoms over the past several days and has been unable to walk. She reports that she lives alone. She denies any drug use, alcohol use, or tobacco use. Patient denies any chest pain, shortness of breath, fever, chills, lightheadedness, dizziness, abdominal pain, nausea vomiting, diarrhea, urinary symptoms, recent trauma or injury, recent sick contacts, recent ingestion of spoiled food, or recent travels. Patient reports that her sister lives in [place]. Also states her daughter lives in [place] and her son lives in [place]. She reports that she does not want to inform her children however is open to informing her sister. Phone number [phone]. Called patient's sister Delia and her Charissa and informed them of the patient's status including plan of care. Summary: 04/30- last night patient had multiple IVs on left arm at least 1 infusing Levophed vasopressor. Thereafter patient lost pulse on right radial. Arterial ultrasound was negative for any arterial thrombus. IVs were removed and instead started on the right hand. Today DVT ultrasound showing multiple small superficial vein thrombosis. Lovenox 40 subQ daily started. No need for full dose anticoagulation with no. We will have to escalate antibiotics from ceftriaxone to meropenem/doxycycline. Continue to monitor lactic acidosis. 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 Patient agrees to PICC line and she is on vasopressors. Patient was given options of central CvC versus PICC line. 05/01-left arm is looking improved, edema has significantly improved. Yesterday ultrasound left arm for DVT study which showed multiple superficial vein thrombosis. We have Lovenox 40 DVT prophylaxis and Plavix home med. Pulses present x4. We are weaning down oxygen, she is on home oxygen. Still on Levophed we will do some bolus trials of 250 cc to see if able to wean off. Otherwise continue treatment for UTI. Continue broad-spectrum antibiotics. We will give fluid bolus and repeat lactic. Antibiotics meropenem/doxycycline. Stop Rocephin. 7/13--left arm continues to improve. Good pulses. Unable to wean off Levophed. We will start septic steroids, midodrine 10 t.i.d. in 500 cc over 5 hours. Urine output 12 hour is 450. Adequate. Continuing broad-spectrum antibiotics meropenem/doxycycline. Urine culture with E coli with multiple sensitivities but patient is still in shock we will continue broad-spectrum. Continuing Lovenox 40 subQ daily. Lactic acidosis is resolving. She is having abdominal pain no bowel movements. We will given loop magnesia, today giving MiraLax. Patient says I am miserable , we will try enema, KUB today. Complaining of dry nose and/or be is on, RT we will evaluate if continue tophi and/or be to maintain oxygen > 90. RT okay to try EzPAP if they seem patient good candidate. 05/03 measures from yesterday appear to be improving patient's condition. Patient is weaned off of Levophed. She is on continued hydrocortisone injections and monitoring p.o. t.i.d.. Feeling better. Left and continues to look good. She has Doppler pulses lower extremities bilaterally. Wheezing today we will continue giving prn ipratropium. Urine output adequate. Continuing IV antibiotics. Maps more than 75. Continuing constipation bowel regimen. We will deescalate care to D OU and monitor another 24 hours. Start PT. 05/04-patient worked with PT really well.. Overnight patient had? Nightmare and woke up delirious but was staff was able to reorient and patient went back to sleep. This morning patient has had liquidy bowel movements x6 and needing to go again. We have been giving her MiraLax. Vital signs stable. Patient is off of levo for more than 24 hours. We are continuing monitoring and shock hydrocortisone IV. We will need to give 3 more days of IV hydrocortisone and we will continue IV antibiotics. She is growing E coli which is sensitive to Macrobid and ceftriaxone. We will deescalate today to ceftriaxone doxycycline. Her abdomen feels better to her, no pain was still appears large for her size. We will get KUB. We will move to tele with sitter. Continue PT, continue diet, 05/05 today hemoglobin remains stable blood pressure remains stable. Hypokalemia 3.1 we will be repleted IV. Patient is ambulating, working with PT. Tolerating p.o.. Back to her baseline. PT recommends home PT but otherwise stable. We are weaning off steroids and continuing midodrine. Patient's urine with E coli resistant only to gentamicin, ampicillin/beta lactams. Possible DC tomorrow 05/06- patient is doing well, ambulating, tolerating p.o.. Vital signs stable. Today patient finished hydrocortisone injections. patient has significant constipation and was getting bowel regimen, today she has 4 bowel movements soft, partial formed. We will hold off further MiraLax continue diet. We will discharge patient to complete treatment for UTI with Macrobid as it was growing E coli sensitive to Macrobid. Also continue monitoring 5 b.i.d. to wean off monitoring with help of PCP follow up. PT recommending home health with PT. Reviewed cardiology note. We will have to hold off some medications as patient is stable on current regimen. Cardiology will have to follow up outpatient. Vital signs stable, stable for discharge as per plan below. Diagnosis: Sepsis with septic shock, due to below Acute complicated UTI, Shock requiring vasopressor support Hyperkalemia , resolved hypokalemia, resolved Anemia, normocytic Probable pneumonia, Gram-negative Gram-positive possible Acute on chronic hypoxic respiratory failure, acute episode resolved EDY due to VMN Lactic acidosis likely due to sepsis severe constipation, resolved Neutrophilia Tachycardia, resolved Tachypnea, resolved hypertension, AFib, CHF, hypothyroidism, CVA with right-sided deficits, GERD, [place], pacemaker, appendectomy, hysterectomy, tonsillectomy Discharge plan: - Take nitrofurantoin 100 mg twice daily for 7 days, continue midodrine 5 mg twice daily for 14 days until PCP follow up. - Home health for medication management and home PT - stopped taking the following medications; amiodarone, cefpodoxime, cyclobenzaprine, doxycycline, Imdur, Metoprolol - continue taking home medications ( alprazolam p.r.n., baclofen, carbidopa levodopa, clopidogrel, furosemide, gabapentin, [place], Synthroid, Megace, memantine, pramipexole, pravastatin, warfarin, ) - Follow up with Cardiology for medication reconciliation ( patient rate controlled without amiodarone, metoprolol and present for hypotension sepsis, ongoing indication for warfarin, stopped Imdur due to hypotension, ) - Follow up with PCP to review discharge ( Necessary 1-2 weeks after discharge) Condition at Discharge: Fair Final Diagnosis/Problems List Sepsis with septic shock, due to below Acute complicated UTI, Shock requiring vasopressor support Hyperkalemia , resolved hypokalemia, resolved Anemia, normocytic Probable pneumonia, Gram-negative Gram-positive possible Acute on chronic hypoxic respiratory failure, acute episode resolved EDY due to VMN Lactic acidosis likely due to sepsis severe constipation, resolved Neutrophilia Tachycardia, resolved Tachypnea, resolved hypertension, AFib, CHF, hypothyroidism, CVA with right-sided deficits, GERD, [place], pacemaker, appendectomy, hysterectomy, tonsillectomy Discharge Disposition: Home with Health Services Discharge Instruct/Medications Diet: Cardiac 2g Na,low cholest Activity: No Restrictions, As Tolerated Follow Up/Referral: See below Medications: See below Scheduled Alprazolam (Alprazolam), 0.25 MG PO QHSP, (Reported) Amiodarone HCl (Amiodarone Hydrochloride), 1 TAB PO DAILY, (Reported) Amiodarone Hcl (Amiodarone Hcl), 200 MG PO DAILY Baclofen (Baclofen), 10 MG PO BID, (Reported) Carbidopa-Levodopa (Carbidopa/Levodopa Odt 25-100 mg), 1 TAB PO HS, (Reported) Cefpodoxime Proxetil (Cefpodoxime Proxetil), 1 TAB PO BID Clopidogrel Bisulfate (Clopidogrel), 1 TAB PO DAILY, (Reported) Cyclobenzaprine Hcl (Cyclobenzaprine Hcl), 10 MG PO BID, (Reported) Doxycycline Monohydrate (Doxycycline Monohydrate), 1 CAP PO BID Furosemide (Furosemide), 1 TAB PO DAILY, (Reported) Gabapentin (Gabapentin), 100 MG PO TID, (Reported) Hydrocodone-Acetaminophen (Hydrocodone/Acetaminophen 10-325 mg), 0.5 TAB PO Q8HR, (Reported) Isosorbide Mononitrate (Isosorbide Mononitrate Er), DAILY, (Reported) Levothyroxine Sodium (Levothyroxine Sodium), 1 TAB PO DAILY, (Reported) Magnesium Oxide (Mag-Oxide), BID, (Reported) Megestrol Acetate (Megace), 40 MG PO BID, (Reported) Memantine Hydrochloride (Memantine HCl), 1 TAB PO DAILY, (Reported) Metoprolol Tartrate (Lopressor Tablet), 50 MG PO DAILY, (Reported) Midodrine HCl (Midodrine HCl), 5 MG PO BID Nitrofurantoin (Nitrofurantoin), 1 CAP PO BID Pramipexole Dihydrochloride (Mirapex Er), 2 MG PO BID, (Reported) Pravastatin Sodium (Pravachol Tablet), 80 MG DAILY, (Reported) Warfarin Sodium (Warfarin Sodium), 3 MG PO EOD, (Reported) Warfarin Sodium (Warfarin Sodium), 4 MG PO EOD, (Reported) Miscellaneous Medications Multiple Vitamins W/ Minerals (Preservision Areds), 1 OR, (Reported) Discharge Statement: "Patient was advised to return to the ER or call 911 if any headaches, dizziness, shortness of breath, chest pain, abdominal pain, bleeding, fevers, or worsening of medical condition. Patient was counseled about treatment plan, medications, possible side effects, patientverbalized understanding. All questions were answered to the best of my ability. This discharge took greater then 30 minutes in planning, reviewing documentation, counseling the patient, and discussing with other team members." Date of Service: May 06, 2025 Billing Provider: KAYLYNN AGUILAR MD Common Visit Codes: 03013-IDV/OBS DISCH DAY >30min KAYLYNN AGUILAR MD May 06, 2025 12:04
[2025-05-06] MEDS ORDERED: MIDODRINE HCL 10 MG TAB PO SCH (18:00)
[2025-05-07] MEDS ORDERED: HYDROCORTISONE 10 MG TAB PO SCH (10:00)
[2025-05-07] MEDS ORDERED: ENOXAPARIN SOD 40 MG/0.4 ML SYRINGE SC SCH (10:00)
== END 2025-05-06 17:00 | disposition home health service (06) | DRG 871 ==
LOC: ER 07:25 → EDUNIT# 07:25 → EDBD 07:25 → OVERFLOW 14:06 → DOU IN ICU 16:48 → ICU CENTRL 21:45 → DOU IN ICU 05-03 17:09 → TELE-EAST 05-04 22:40 → EAST 05-05 11:55
PROVIDERS: ADMIT Student in an Organized Health Care Education/Training Program; ATTEND Student in an Organized Health Care Education/Training Program
PROC: 02HV33Z Insertion of Infusion Device into Superior Vena Cava, Percutaneous Approach (ICD-10-PCS; principal; 2025-04-30)
PROC: B548ZZA Ultrasonography of Superior Vena Cava, Guidance (ICD-10-PCS; 2025-04-30)
DX: A41.9 Sepsis, unspecified organism (principal); J15.69 Pneumonia due to other Gram-negative bacteria; R65.21 Severe sepsis with septic shock; J15.9 Unspecified bacterial pneumonia; N17.0 Acute kidney failure with tubular necrosis; J96.21 Acute and chronic respiratory failure with hypoxia; E87.20 Acidosis, unspecified; N39.0 Urinary tract infection, site not specified; I50.22 Chronic systolic (congestive) heart failure; Z66 Do not resuscitate; E87.5 Hyperkalemia; D72.0 Genetic anomalies of leukocytes; I11.0 Hypertensive heart disease with heart failure; D64.9 Anemia, unspecified; E03.9 Hypothyroidism, unspecified; G25.81 Restless legs syndrome; I69.398 Other sequelae of cerebral infarction; E87.6 Hypokalemia; I48.91 Unspecified atrial fibrillation; K21.9 Gastro-esophageal reflux disease without esophagitis; B96.20 Unspecified Escherichia coli [E. coli] as the cause of diseases classified elsewhere; K59.00 Constipation, unspecified; I25.2 Old myocardial infarction; Z95.0 Presence of cardiac pacemaker; Z90.710 Acquired absence of both cervix and uterus; Z90.49 Acquired absence of other specified parts of digestive tract; Z88.0 Allergy status to penicillin
CPT/HCPCS: 36415; 36569; 71045; 74018; 76937; 80048; 80053; 81001; 82962; 83605; 83735; 84100; 84132; 85025; 85610; 85730; 87040; 87081; 87086; 87088; 87186; 93005; 93971; 94640; 96365; 97110; 97116; 97163; 97530; 99291; G0378; J0131; J1815; J2003; J2470